=== PATIENT | female | born 2000 | race Caucasian/White ===

== ENCOUNTER 2022-01-21 15:03 | Emergency (ER) | payer OTHER ==
--- NOTE | 2022-01-21 16:29 | ED Physician Documentation ---
PD HPI URI - Stated complaint Stated Complaint: FEVER/NAUSEA - Chief complaint Chief Complaint: General - History obtained from History obtained from: Patient - History of Present Illness Timing - onset: How many days ago (4-5) Timing duration: Days (4-5) Timing details: Abrupt onset, Still present Associated symptoms: Fever, Chills, Nasal congestion, Dry cough. No: NVD Contributing factors: Sick contact. No: Immunocompromised Worsened by: Activity Similar symptoms before: Has not had sx before Recently seen: Not recently seen Review of Systems Constitutional: reports: Fever, Chills Nose: reports: Rhinorrhea / runny nose, Congestion Throat: reports: Sore throat Respiratory: reports: Cough GI: reports: Nausea. denies: Vomiting, Diarrhea Skin: denies: Rash Neurologic: reports: Generalized weakness, Headache. denies: Altered mental status PD PAST MEDICAL HISTORY - Past Medical History Cardiovascular: None Respiratory: None Endocrine/Autoimmune: None - Present Medications Home Medications: Ambulatory Orders Medication Instructions Recorded Confirmed Benzonatate [Tessalon] 100 mg PO TID PRN #20 cap 01/21/22 Lisinopril [Zestril] 20 mg PO DAILY 01/21/22 01/21/22 Ondansetron Odt [Zofran] 4 mg TL Q6H PRN #10 tablet 01/21/22 - Allergies Allergies/Adverse Reactions: Allergies Allergy/AdvReac Type Severity Reaction Status Date / Time No Known Drug Allergies Allergy Verified 01/21/22 15:21 PD ED PE NORMAL - Vitals Vital signs reviewed: Yes - General General: Alert and oriented X 3, No acute distress, Well developed/nourished - HEENT HEENT: Pharynx benign - Neck Neck: Supple, no meningeal sign, No adenopathy - Cardiac Cardiac: RRR, No murmur - Respiratory Respiratory: Clear bilaterally - Abdomen Abdomen: Soft, Non tender - Derm Derm: Normal color, Warm and dry, No rash - Neuro Neuro: Alert and oriented X 3, No motor deficit, Normal speech Results - Vitals Vitals: Oxygen O2 Source Room air PD MEDICAL DECISION MAKING - ED course Complexity details: considered differential (COVID close exposure ( sick with positive home rapid ag test).), d/w patient Departure - Departure Disposition: 01 Home, Self Care Clinical Impression: COVID-19, Upper respiratory infection Condition: Stable Record reviewed to determine appropriate education?: Yes Instructions: ED Viral Syndrome Follow-Up: SNE[facility] Burns [Provider Group] Prescriptions: Benzonatate [Tessalon] 100 mg PO TID PRN #20 cap PRN Reason: Cough Ondansetron Odt [Zofran] 4 mg TL Q6H PRN #10 tablet PRN Reason: Nausea / Vomiting Comments: Stay well-hydrated and use Tylenol every 4-6 hours if needed for pain or fevers. Use ondansetron if needed for nausea. Benzonatate/Tessalon if needed for cough. Off work for 5 days due to acute COVID infection. I would anticipate improvement over the next several days and return if worsening. Paxlovid as instructed per the package and directions twice daily for 5 days. I transmitted prescriptions to [facility] pharmacy. Forms: Activity restrictions Discharge Date/Time: 01/21/22 18:03
[2022-01-21] MEDS ORDERED: ONDANSETRON ODT 4 MG TABLET TL STA (17:09)
[2022-01-21] MEDS ORDERED: BENZONATATE 100 MG CAPSULE PO STA (17:09)
[2022-01-21] MEDS ORDERED: NIRMATRELVIR/RITONAVIR PREPACK PO STA (17:09)
[2022-01-21 18:05] VITALS: BP 124/82
== END 2022-01-21 18:03 | disposition home or self-care (01) ==
LOC: ED 15:03
DX: U07.1 COVID-19 (principal)
CPT/HCPCS: 99282; 99283; A9270; J3490; Q0162

== ENCOUNTER 2022-09-04 09:29 | Emergency (ER) | payer OTHER ==
[2022-09-04 09:37] VITALS: BP 134/80
--- OUTSIDE RECORDS SUMMARY | 2022-09-04 09:57 | EXTERNAL MEDICAL SUMMARY RPT | Continuity of Care Document ---
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 2022-06-16 13:06 Encounter for superv ision of other normal , [facility] 2022-06-16 13:14 Polycystic kidney, [facility] 2022-06-16 13:14 Encounter for superv ision of normal first , [facility] 2022-06-16 13:14 Encounter for superv ision of other normal , [facility] 2022-08-11 11:42 Other specified noninflammatory disorders of vagina [facility] 2022-08-12 00:45 Other specified noninflammatory disorders of vagina [facility] Results/Labs test date author facility value unit interpretation Result panel 1 (unknown) (no date) (unknown) [facility] (no value) (units unknown) (unknown) Result panel 2 (unknown) (no date) (unknown) [facility] (no value) (units unknown) (unknown) Result panel 3 (unknown) (no date) (unknown) [facility] (no value) (units unknown) (unknown) Result panel 4 (unknown) (no date) (unknown) [facility] (no value) (units unknown) (unknown) Result panel 5 (unknown) (no date) (unknown) [facility] (no value) (units unknown) (unknown) Result panel 6 (unknown) (no date) (unknown) [facility] (no value) (units unknown) (unknown) Result panel 7 (unknown) (no date) (unknown) [facility] (no value) (units unknown) (unknown) Result panel 8 (unknown) (no date) (unknown) [facility] (no value) (units unknown) (unknown) Result panel 9 (unknown) (no date) (unknown) [facility] (no value) (units unknown) (unknown) Result panel 10 (unknown) (no date) (unknown) [facility] (no value) (units unknown) (unknown) Result panel 11 (unknown) (no date) (unknown) [facility] (no value) (units unknown) (unknown) Result panel 12 (unknown) (no date) (unknown) [facility] (no value) (units unknown) (unknown) Result panel 13 (unknown) (no date) (unknown) [facility] (no value) (units unknown) (unknown) Result panel 14 (unknown) (no date) (unknown) [facility] (no value) (units unknown) (unknown) Result panel 15 (unknown) (no date) (unknown) [facility] (no value) (units unknown) (unknown) Result panel 16 (unknown) (no date) (unknown) [facility] (no value) (units unknown) (unknown) Result panel 17 (unknown) (no date) (unknown) [facility] (no value) (units unknown) (unknown) Result panel 18 (unknown) (no date) (unknown) [facility] (no value) (units unknown) (unknown) Result panel 19 (unknown) (no date) (unknown) [facility] (no value) (units unknown) (unknown) Result panel 20 (unknown) (no date) (unknown) [facility] (no value) (units unknown) (unknown) Result panel 21 (unknown) (no date) (unknown) [facility] (no value) (units unknown) (unknown) Result panel 22 (unknown) (no date) (unknown) [facility] (no value) (units unknown) (unknown) Result panel 23 (unknown) (no date) (unknown) [facility] (no value) (units unknown) (unknown) Result panel 24 (unknown) (no date) (unknown) [facility] (no value) (units unknown) (unknown) Result panel 25 (unknown) (no date) (unknown) [facility] (no value) (units unknown) (unknown) Result panel 26 (unknown) (no date) (unknown) [facility] (no value) (units unknown) (unknown) Result panel 27 (unknown) (no date) (unknown) [facility] (no value) (units unknown) (unknown) Result panel 28 (unknown) (no date) (unknown) [facility] (no value) (units unknown) (unknown) Result panel 29 (unknown) (no date) (unknown) [facility] (no value) (units unknown) (unknown) Result panel 30 (unknown) (no date) (unknown) [facility] (no value) (units unknown) (unknown) Result panel 31 (unknown) (no date) (unknown) [facility] (no value) (units unknown) (unknown) Result panel 32 (unknown) (no date) (unknown) [facility] (no value) (units unknown) (unknown) Result panel 33 (unknown) (no date) (unknown) [facility] (no value) (units unknown) (unknown) Result panel 34 (unknown) (no date) (unknown) [facility] (no value) (units unknown) (unknown) Result panel 35 (unknown) (no date) (unknown) [facility] (no value) (units unknown) (unknown) Result panel 36 (unknown) (no date) (unknown) [facility] (no value) (units unknown) (unknown) Result panel 37 (unknown) (no date) (unknown) [facility] (no value) (units unknown) (unknown) Result panel 38 (unknown) (no date) (unknown) [facility] (no value) (units unknown) (unknown) Result panel 39 (unknown) (no date) (unknown) [facility] (no value) (units unknown) (unknown) Result panel 40 (unknown) (no date) (unknown) [facility] (no value) (units unknown) (unknown) Result panel 41 (unknown) (no date) (unknown) [facility] (no value) (units unknown) (unknown) Result panel 42 (unknown) (no date) (unknown) [facility] (no value) (units unknown) (unknown) Result panel 43 (unknown) (no date) (unknown) [facility] (no value) (units unknown) (unknown) Result panel 44 (unknown) (no date) (unknown) [facility] (no value) (units unknown) (unknown) Result panel 45 (unknown) (no date) (unknown) [facility] (no value) (units unknown) (unknown) Result panel 46 (unknown) (no date) (unknown) [facility] (no value) (units unknown) (unknown) Result panel 47 (unknown) (no date) (unknown) [facility] (no value) (units unknown) (unknown) Result panel 48 (unknown) (no date) (unknown) [facility] (no value) (units unknown) (unknown) Result panel 49 (unknown) (no date) (unknown) [facility] (no value) (units unknown) (unknown) Result panel 50 (unknown) (no date) (unknown) [facility] (no value) (units unknown) (unknown) Result panel 51 (unknown) (no date) (unknown) [facility] (no value) (units unknown) (unknown) Result panel 52 (unknown) (no date) (unknown) [facility] (no value) (units unknown) (unknown) Result panel 53 (unknown) (no date) (unknown) [facility] (no value) (units unknown) (unknown) Result panel 54 (unknown) (no date) (unknown) [facility] (no value) (units unknown) (unknown) Result panel 55 (unknown) (no date) (unknown) [facility] (no value) (units unknown) (unknown) Result panel 56 (unknown) (no date) (unknown) [facility] (no value) (units unknown) (unknown) Result panel 57 (unknown) (no date) (unknown) [facility] (no value) (units unknown) (unknown) Result panel 58 (unknown) (no date) (unknown) [facility] (no value) (units unknown) (unknown) Result panel 59 (unknown) (no date) (unknown) [facility] (no value) (units unknown) (unknown) Result panel 60 (unknown) (no date) (unknown) [facility] (no value) (units unknown) (unknown) Result panel 61 (unknown) (no date) (unknown) [facility] (no value) (units unknown) (unknown) Result panel 62 (unknown) (no date) (unknown) [facility] (no value) (units unknown) (unknown) Result panel 63 (unknown) (no date) (unknown) (unknown) (no value) (units unknown) (unknown) (unknown) (no date) (unknown) (unknown) (1) Encounter for supervision of normal first , first trimester: (units unknown) (unknown) (unknown) (no date) (unknown) (unknown) (2) 11 weeks gestation of : (units unknown) (unknown) (unknown) (no date) (unknown) (unknown) Genetic Screening/Teratolog y Counseling - Includes patient, baby's father, or (units unknown) (unknown) (unknown) (no date) (unknown) (unknown) -?-?-?-?-?-?-? -?-?- ?-?-? (units unknown) (unknown) (unknown) (no date) (unknown) (unknown) 04/28/22 (units unknown) (unknown) (unknown) (no date) (unknown) (unknown) 06/16/22 (units unknown) (unknown) (unknown) (no date) (unknown) (unknown) [id number] (units unknown) (unknown) (unknown) (no date) (unknown) (unknown) 12/29/22 Ultra sound #1 12w 0d (units unknown) (unknown) (unknown) (no date) (unknown) (unknown) 11w 5d (units unknown) (unknown) (unknown) (no date) (unknown) (unknown) Abnormal lab v alues 1st trimester: discussed (units unknown) (unknown) (unknown) (no date) (unknown) (unknown) Acne (units unknown) (unknown) (unknown) (no date) (unknown) (unknown) 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[employer], 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 (units unknown) (unknown) (unknown) (no date) (unknown) (unknown) Age/Sex: 21 / F Date of Service: (units unknown) (unknown) (unknown) (no date) (unknown) (unknown) Allergies (units unknown) (unknown) (unknown) (no date) (unknown) (unknown) [facility] (units unknown) (unknown) (unknown) (no date) (unknown) (unknown) [place] [address] (units unknown) (unknown) (unknown) (no date) (unknown) (unknown) Aneuploidy Screening Offered: Declined (unsure, wants to discuss w/ ) (units unknown) (unknown) (unknown) (no date) (unknown) (unknown) Anticipated co urse of care: discussed (units unknown) (unknown) (unknown) (no date) (unknown) (unknown) Anxiety (units unknown) (unknown) (unknown) (no date) (unknown) (unknown) Arthritis (units unknown) (unknown) (unknown) (no date) (unknown) (unknown) Assessment and Plan (units unknown) (unknown) (unknown) (no date) (unknown) (unknown) Attending Dr: Faith Flanagan MD (units unknown) (unknown) (unknown) (no date) (unknown) (unknown) Plan/Preferences (units unknown) (unknown) (unknown) (no date) (unknown) (unknown) Planning (unit s unknown) (unknown) (unknown) (no date) (unknown) (unknown) Blood transfusions?: yes (Never had but would accept) (units unknown) (unknown) (unknown) (no date) (unknown) (unknown) Caffeine use, Exercise and activity, work/environmental/ hazards, Sexual (units unknown) (unknown) (unknown) (no date) (unknown) (unknown) Childbirth Cla sses: discussed (units unknown) (unknown) (unknown) (no date) (unknown) (unknown) Current Estima te 12/31/22 Manual 11w 5d Final MOMO (units unknown) (unknown) (unknown) (no date) (unknown) (unknown) Current Pregna ncy History (units unknown) (unknown) (unknown) (no date) (unknown) (unknown) DNA (units unknown) (unknown) (unknown) (no date) (unknown) (unknown) : 1 Acct:[id number] (units unknown) (unknown) (unknown) (no date) (unknown) (unknown) Date of positi ve home test: 04/19/22 (units unknown) (unknown) (unknown) (no date) (unknown) (unknown) Date (units unknown) (unknown) (unknown) (no date) (unknown) (unknown) Denies over th e counter medications, Denies alcohol, Denies illicit drugs and (units unknown) (unknown) (unknown) (no date) (unknown) (unknown) Depression: discussed (units unknown) (unknown) (unknown) (no date) (unknown) (unknown) Dept at . (units unknown) (unknown) (unknown) (no date) (unknown) (unknown) Diet and Exercise (u nits unknown) (unknown) (unknown) (no date) (unknown) (unknown) Documented By: Faith Flanagan MD 06/16/22 0920 (units unknown) (unknown) (unknown) (no date) (unknown) (unknown) Draft (units unknown) (unknown) (unknown) (no date) (unknown) (unknown) MOMO Calculator (unit s unknown) (unknown) (unknown) (no date) (unknown) (unknown) EGA Weight BP UGlucose (units unknown) (unknown) (unknown) (no date) (unknown) (unknown) Estimated Deli very Date Method Current (units unknown) (unknown) (unknown) (no date) (unknown) (unknown) Family History (Updated 05/05/22 @ 15:59 by Rebecca Polk RN) (units unknown) (unknown) (unknown) (no date) (unknown) (unknown) Family/Other Marfans syndrome (units unknown) (unknown) (unknown) (no date) (unknown) (unknown) Family/Other Marfans syndrome (units unknown) (unknown) (unknown) (no date) (unknown) (unknown) Family/Other Polycystic kidney disease (units unknown) (unknown) (unknown) (no date) (unknown) (unknown) Father of Baby : same (units unknown) (unknown) (unknown) (no date) (unknown) (unknown) First Trimeste r Education Checklist (units unknown) (unknown) (unknown) (no date) (unknown) (unknown) Genetic Screen ing + Counseling (units unknown) (unknown) (unknown) (no date) (unknown) (unknown) Genetic Screening (u nits unknown) (unknown) (unknown) (no date) (unknown) (unknown) Genetic polycy stic kidney disease; family Hx Marfan Syndrome (pt has no known (units unknown) (unknown) (unknown) (no date) (unknown) (unknown) Grandfather Marfans syndrome (units unknown) (unknown) (unknown) (no date) (unknown) (unknown) Grandfather Me ntal health problem (units unknown) (unknown) (unknown) (no date) (unknown) (unknown) Grandmother Lymphoma (units unknown) (unknown) (unknown) (no date) (unknown) (unknown) 1 Mult iple births 0 (units unknown) (unknown) (unknown) (no date) (unknown) (unknown) HIV risk evaluation: low risk (units unknown) (unknown) (unknown) (no date) (unknown) (unknown) Health Center Education (units unknown) (unknown) (unknown) (no date) (unknown) (unknown) Health center information: nature of practice discussed, personnel (units unknown) (unknown) (unknown) (no date) (unknown) (unknown) Hepatitis C ri sk evaluation: low risk (units unknown) (unknown) (unknown) (no date) (unknown) (unknown) History of Hepatitis B: No (units unknown) (unknown) (unknown) (no date) (unknown) (unknown) History of Hepatitis C: No (units unknown) (unknown) (unknown) (no date) (unknown) (unknown) History of rem oval of skin mole (units unknown) (unknown) (unknown) (no date) (unknown) (unknown) Hospital: (units unknown) (unknown) (unknown) (no date) (unknown) (unknown) 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) (units unknown) (unknown) (unknown) (no date) (unknown) (unknown) Hx # Pregnancies 0 Elective abortions 0 (units unknown) (unknown) (unknown) (no date) (unknown) (unknown) Hx # Term Pregnancies 0 Ectopic pregnancies 0 (units unknown) (unknown) (unknown) (no date) (unknown) (unknown) Infant will be adopted?: no (units unknown) (unknown) (unknown) (no date) (unknown) (unknown) Infection History (u nits unknown) (unknown) (unknown) (no date) (unknown) (unknown) Infectious Dis ease Education (units unknown) (unknown) (unknown) (no date) (unknown) (unknown) Infectious dis ease exposure: chicken pox immunity discussed, hepatitis risk (units unknown) (unknown) (unknown) (no date) (unknown) (unknown) Initial Weight : 210 lb (units unknown) (unknown) (unknown) (no date) (unknown) (unknown) Initials (units unknown) (unknown) (unknown) (no date) (unknown) (unknown) Intake (units unknown) (unknown) (unknown) (no date) (unknown) (unknown) ROSALIE (units unknown) (unknown) (unknown) (no date) (unknown) (unknown) LGSIL on Pap s mear of cervix (units unknown) (unknown) (unknown) (no date) (unknown) (unknown) Live with some one with TB or exposed to TB: No (units unknown) (unknown) (unknown) (no date) (unknown) (unknown) Loc: [facility] (units unknown) (unknown) (unknown) (no date) (unknown) (unknown) Marital status : (units unknown) (unknown) (unknown) (no date) (unknown) (unknown) Medical Histor y (Updated 05/05/22 @ 15:35 by Rebecca Polk RN) (units unknown) (unknown) (unknown) (no date) (unknown) (unknown) Mother Polycys tic kidney disease (units unknown) (unknown) (unknown) (no date) (unknown) (unknown) No Known Drug Allergies Allergy (Unverified 05/05/22 15:32) (units unknown) (unknown) (unknown) (no date) (unknown) (unknown) No no absent 4wks (u nits unknown) (unknown) (unknown) (no date) (unknown) (unknown) Number of Maylin ng Children 0 (units unknown) (unknown) (unknown) (no date) (unknown) (unknown) Nutrition and weight gain counseling: special diet: discussed (units unknown) (unknown) (unknown) (no date) (unknown) (unknown) OB Office Visit (uni ts unknown) (unknown) (unknown) (no date) (unknown) (unknown) OB Visit Log (units unknown) (unknown) (unknown) (no date) (unknown) (unknown) On contr ol at conception?: No (units unknown) (unknown) (unknown) (no date) (unknown) (unknown) Other Estimate s 12/31/22 LMP (Certain) 11w 5d (units unknown) (unknown) (unknown) (no date) (unknown) (unknown) PFSH (units unknown) (unknown) (unknown) (no date) (unknown) (unknown) Pap LSIL 01/23 22, but no reflex HPV was run, no f/u done. 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 treated and cured) (units unknown) (unknown) (unknown) (no date) (unknown) (unknown) Partner histor y of genital herpes: Yes (units unknown) (unknown) (unknown) (no date) (unknown) (unknown) Partner: Willian Lopez (units unknown) (unknown) (unknown) (no date) (unknown) (unknown) Patient's age 35 years or older as of estimated date of delivery: No (units unknown) (unknown) (unknown) (no date) (unknown) (unknown) Patient: Colleen Lopez MR#: [id number] (units unknown) (unknown) (unknown) (no date) (unknown) (unknown) Client Reporting Associate: [facility] vs [facility] (units unknown) (unknown) (unknown) (no date) (unknown) (unknown) Personal histo ry of STD: HPV (? no HPV actually run from pap) (units unknown) (unknown) (unknown) (no date) (unknown) (unknown) Personal histo ry of genital herpes: No (units unknown) (unknown) (unknown) (no date) (unknown) (unknown) Polycystic kid shannan disease (units unknown) (unknown) (unknown) (no date) (unknown) (unknown) History (u nits unknown) (unknown) (unknown) (no date) (unknown) (unknown) Education ( units unknown) (unknown) (unknown) (no date) (unknown) (unknown) Initi al Assessment (units unknown) (unknown) (unknown) (no date) (unknown) (unknown) Speci fic Issues/Plans (units unknown) (unknown) (unknown) (no date) (unknown) (unknown) Testi ng: discussed (units unknown) (unknown) (unknown) (no date) (unknown) (unknown) Visit (unit s unknown) (unknown) (unknown) (no date) (unknown) (unknown) educa tion packet: Child education/plan, symptoms, (units unknown) (unknown) (unknown) (no date) (unknown) (unknown) Primary Care Provider: KELLEN (units unknown) (unknown) (unknown) (no date) (unknown) (unknown) Primary Ob Provider: Faith Flanagan (units unknown) (unknown) (unknown) (no date) (unknown) (unknown) Prior GBS-Infe cted child: No (units unknown) (unknown) (unknown) (no date) (unknown) (unknown) Providers (units unknown) (unknown) (unknown) (no date) (unknown) (unknown) Rash or viral illness since last menstrual period: Yes (URI vs allergies (Covid (units unknown) (unknown) (unknown) (no date) (unknown) (unknown) Reason For Visit (un its unknown) (unknown) (unknown) (no date) (unknown) (unknown) Recent travel outside of country?: Yes ([place] only) (units unknown) (unknown) (unknown) (no date) (unknown) (unknown) Recurrent preg haven loss or a stillbirth: No (units unknown) (unknown) (unknown) (no date) (unknown) (unknown) 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), (units unknown) (unknown) (unknown) (no date) (unknown) (unknown) 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) and Reports Other (units unknown) (unknown) (unknown) (no date) (unknown) (unknown) 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) (units unknown) (unknown) (unknown) (no date) (unknown) (unknown) Safety (units unknown) (unknown) (unknown) (no date) (unknown) (unknown) Seasonal allergies ( units unknown) (unknown) (unknown) (no date) (unknown) (unknown) Signed By: (units unknown) (unknown) (unknown) (no date) (unknown) (unknown) Sister Depression (u nits unknown) (unknown) (unknown) (no date) (unknown) (unknown) Smoking Status : Former smoker (quit vaping 11/2021) (units unknown) (unknown) (unknown) (no date) (unknown) (unknown) Smoking/Tobacc o use: discussed (units unknown) (unknown) (unknown) (no date) (unknown) (unknown) Social History (unit s unknown) (unknown) (unknown) (no date) (unknown) (unknown) Status: Acute (units unknown) (unknown) (unknown) (no date) (unknown) (unknown) Support Person (s):: Willian (units unknown) (unknown) (unknown) (no date) (unknown) (unknown) Surgical Histo ry (Updated 05/05/22 @ 15:35 by Rebecca Polk RN) (units unknown) (unknown) (unknown) (no date) (unknown) (unknown) Surrogate ?: no (units unknown) (unknown) (unknown) (no date) (unknown) (unknown) Symptoms since LMP: Reports amenorrhea, nausea, fatigue, breast tenderness, (units unknown) (unknown) (unknown) (no date) (unknown) (unknown) Teratogen Expo sures since LMP/Conception: Denies prescription medications, (units unknown) (unknown) (unknown) (no date) (unknown) (unknown) Testing Education (u nits unknown) (unknown) (unknown) (no date) (unknown) (unknown) Testing educat ion completed: group B strep, Spina bifida testing and Cell Free (units unknown) (unknown) (unknown) (no date) (unknown) (unknown) This note may have been all or partially generated using voice recognition (units unknown) (unknown) (unknown) (no date) (unknown) (unknown) Tobacco + Subs tance Use (units unknown) (unknown) (unknown) (no date) (unknown) (unknown) Tobacco Status (unit s unknown) (unknown) (unknown) (no date) (unknown) (unknown) Travel, Seatbe lt use and Influenza vaccine (already had flu shot, Covid x2) (units unknown) (unknown) (unknown) (no date) (unknown) (unknown) Type(s) of exercise: walking (units unknown) (unknown) (unknown) (no date) (unknown) (unknown) UProtein Movem ent PreLabor FHR Fndl Ht Pres Edema Cerv Exam US/Comment Next Appt (units unknown) (unknown) (unknown) (no date) (unknown) (unknown) Varicella/chic rodrigue pox status: immunized (units unknown) (unknown) (unknown) (no date) (unknown) (unknown) 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 , 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 (units unknown) (unknown) (unknown) (no date) (unknown) (unknown) Vitamins and i julio c, Diet and weight gain, Fish and mercury intake, Smoking, (units unknown) (unknown) (unknown) (no date) (unknown) (unknown) WG (units unknown) (unknown) (unknown) (no date) (unknown) (unknown) [place] teeth extracted () (units unknown) (unknown) (unknown) (no date) (unknown) (unknown) Zika virus exposure: No (units unknown) (unknown) (unknown) (no date) (unknown) (unknown) activity, X-ra y exposure, Medication use, Sauna/hot tub use, Dental care, (units unknown) (unknown) (unknown) (no date) (unknown) (unknown) alcohol intake : former (5-7 glasses of wine/week when not ) (units unknown) (unknown) (unknown) (no date) (unknown) (unknown) anyone in 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 ) (units unknown) (unknown) (unknown) (no date) (unknown) (unknown) current occupational exposures/hazards: Yes (exposure in the building, but no (units unknown) (unknown) (unknown) (no date) (unknown) (unknown) daily servings fruits/ve-4 (units unknown) (unknown) (unknown) (no date) (unknown) (unknown) described, vis it schedule reviewed, ultrasounds policy reviewed, coverage 24 (units unknown) (unknown) (unknown) (no date) (unknown) (unknown) discussed, tuberculosis exposure discussed, CMV discussed, Toxoplasmosis (units unknown) (unknown) (unknown) (no date) (unknown) (unknown) do you feel sa fe at home: Yes (units unknown) (unknown) (unknown) (no date) (unknown) (unknown) duration: 30-4 5 minutes/day (units unknown) (unknown) (unknown) (no date) (unknown) (unknown) during the pas t year weight has: increased > 10 lbs (units unknown) (unknown) (unknown) (no date) (unknown) (unknown) education levsuleiman l: college (some college) (units unknown) (unknown) (unknown) (no date) (unknown) (unknown) fire extinguis her in home: Yes (units unknown) (unknown) (unknown) (no date) (unknown) (unknown) firearms in ho me: Yes (some locked up, not all) (units unknown) (unknown) (unknown) (no date) (unknown) (unknown) frequency: 3-4 times per week (units unknown) (unknown) (unknown) (no date) (unknown) (unknown) have occurred. If there are any questions, please contact the Medical Records (units unknown) (unknown) (unknown) (no date) (unknown) (unknown) helmet use: Yes (uni ts unknown) (unknown) (unknown) (no date) (unknown) (unknown) hours a day an d participation of father in care and office visits (units unknown) (unknown) (unknown) (no date) (unknown) (unknown) household memb ers: spouse and friend(s) (units unknown) (unknown) (unknown) (no date) (unknown) (unknown) housing: house (unit s unknown) (unknown) (unknown) (no date) (unknown) (unknown) inherited gene tic or chromosomal disorder (polycystic kidneys, Marfan's) (units unknown) (unknown) (unknown) (no date) (unknown) (unknown) irritability a nd other (constipation) (units unknown) (unknown) (unknown) (no date) (unknown) (unknown) lives independently: Yes (units unknown) (unknown) (unknown) (no date) (unknown) (unknown) marital status : (units unknown) (unknown) (unknown) (no date) (unknown) (unknown) may occur. 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 Please (units unknown) (unknown) (unknown) (no date) (unknown) (unknown) pets and anima ls: Yes (units unknown) (unknown) (unknown) (no date) (unknown) (unknown) precautions, Listeriosis prevention and Rubella Immunization (units unknown) (unknown) (unknown) (no date) (unknown) (unknown) read the note carefully and recognize, using context, where these substitutions (units unknown) (unknown) (unknown) (no date) (unknown) (unknown) seatbelt use: always (units unknown) (unknown) (unknown) (no date) (unknown) (unknown) second hand exposure: Yes (roommate vapes) (units unknown) (unknown) (unknown) (no date) (unknown) (unknown) software. Alth ough every effort is made to edit content, coordinate measuring machine operator errors (units unknown) (unknown) (unknown) (no date) (unknown) (unknown) special jeri needs: No (units unknown) (unknown) (unknown) (no date) (unknown) (unknown) substance use type: does not use (units unknown) (unknown) (unknown) (no date) (unknown) (unknown) travel history : recent (domestic, [place]) (units unknown) (unknown) (unknown) (no date) (unknown) (unknown) water heater t emp set < 120 deg: Yes (units unknown) (unknown) (unknown) (no date) (unknown) (unknown) well-balanced diet: about half the time (units unknown) (unknown) (unknown) (no date) (unknown) (unknown) working smoke detector in home: Yes (units unknown) (unknown) Result panel 64 (unknown) (no date) (unknown) (unknown) (no value) (units unknown) (unknown) (unknown) (no date) (unknown) (unknown) (+8 lb 8 oz) 110/66 (units unknown) (unknown) (unknown) (no date) (unknown) (unknown) (1) Encounter for supervision of normal first , first trimester: (units unknown) (unknown) (unknown) (no date) (unknown) (unknown) (2) 11 weeks gestation of : (units unknown) (unknown) (unknown) (no date) (unknown) (unknown) Genetic Screening/Teratolog y Counseling - Includes patient, baby's father, or (units unknown) (unknown) (unknown) (no date) (unknown) (unknown) -?-?-?-?-?-?-? -?-?- ?-?-? (units unknown) (unknown) (unknown) (no date) (unknown) (unknown) 06/16/22 (units unknown) (unknown) (unknown) (no date) (unknown) (unknown) 06/16/22] (units unknown) (unknown) (unknown) (no date) (unknown) (unknown) [id number] (units unknown) (unknown) (unknown) (no date) (unknown) (unknown) 12/29/22 Ultra sound #1 12w 0d (units unknown) (unknown) (unknown) (no date) (unknown) (unknown) 11w 5d 218 lb 8 oz ( units unknown) (unknown) (unknown) (no date) (unknown) (unknown) 12:18 (units unknown) (unknown) (unknown) (no date) (unknown) (unknown) Abnormal lab v alues 1st trimester: discussed (units unknown) (unknown) (unknown) (no date) (unknown) (unknown) Accompanied by : (units unknown) (unknown) (unknown) (no date) (unknown) (unknown) Acne (units unknown) (unknown) (unknown) (no date) (unknown) (unknown) 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[employer], 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 (units unknown) (unknown) (unknown) (no date) (unknown) (unknown) Add'l Plan Details ( units unknown) (unknown) (unknown) (no date) (unknown) (unknown) Age/Sex: 21 / F Date of Service: (units unknown) (unknown) (unknown) (no date) (unknown) (unknown) Allergies (units unknown) (unknown) (unknown) (no date) (unknown) (unknown) Chandni Dooley ly Medicine (units unknown) (unknown) (unknown) (no date) (unknown) (unknown) FARIHA Tariq [id number] (units unknown) (unknown) (unknown) (no date) (unknown) (unknown) Aneuploidy Screening Offered: Declined (unsure, wants to discuss w/ ) (units unknown) (unknown) (unknown) (no date) (unknown) (unknown) Anticipated co urse of care: discussed (units unknown) (unknown) (unknown) (no date) (unknown) (unknown) Anxiety (units unknown) (unknown) (unknown) (no date) (unknown) (unknown) Arthritis (units unknown) (unknown) (unknown) (no date) (unknown) (unknown) Assessment and Plan (units unknown) (unknown) (unknown) (no date) (unknown) (unknown) Attending Dr: Faith Flanagan MD (units unknown) (unknown) (unknown) (no date) (unknown) (unknown) BMI 34.2 (units unknown) (unknown) (unknown) (no date) (unknown) (unknown) BP 110/66 (units unknown) (unknown) (unknown) (no date) (unknown) (unknown) Plan/Preferences (units unknown) (unknown) (unknown) (no date) (unknown) (unknown) Planning (unit s unknown) (unknown) (unknown) (no date) (unknown) (unknown) Blood Pressure Location Lt brachial (units unknown) (unknown) (unknown) (no date) (unknown) (unknown) Blood transfusions?: yes (Never had but would accept) (units unknown) (unknown) (unknown) (no date) (unknown) (unknown) Caffeine use, Exercise and activity, work/environmental/ hazards, Sexual a (units unknown) (unknown) (unknown) (no date) (unknown) (unknown) Childbirth Cla sses: discussed (units unknown) (unknown) (unknown) (no date) (unknown) (unknown) Current Estima te 12/31/22 Manual 11w 5d Final MOMO (units unknown) (unknown) (unknown) (no date) (unknown) (unknown) Current Pregna ncy History (units unknown) (unknown) (unknown) (no date) (unknown) (unknown) DNA (units unknown) (unknown) (unknown) (no date) (unknown) (unknown) : 1 Acct:[id number] (units unknown) (unknown) (unknown) (no date) (unknown) (unknown) Date of positi ve home test: 04/19/22 (units unknown) (unknown) (unknown) (no date) (unknown) (unknown) Date (units unknown) (unknown) (unknown) (no date) (unknown) (unknown) Denies over th e counter medications, Denies alcohol, Denies illicit drugs and (units unknown) (unknown) (unknown) (no date) (unknown) (unknown) Depression: discussed (units unknown) (unknown) (unknown) (no date) (unknown) (unknown) Dept at . (units unknown) (unknown) (unknown) (no date) (unknown) (unknown) Diet and Exercise (u nits unknown) (unknown) (unknown) (no date) (unknown) (unknown) Documented By: Faith Flanagan MD 06/16/22 0920 (units unknown) (unknown) (unknown) (no date) (unknown) (unknown) Draft (units unknown) (unknown) (unknown) (no date) (unknown) (unknown) MOMO Calculator (unit s unknown) (unknown) (unknown) (no date) (unknown) (unknown) EGA Weight BP UGlucose (units unknown) (unknown) (unknown) (no date) (unknown) (unknown) Estimated Deli very Date Method Current (units unknown) (unknown) (unknown) (no date) (unknown) (unknown) Family History (Updated 05/05/22 @ 15:59 by Reebcca Polk RN) (units unknown) (unknown) (unknown) (no date) (unknown) (unknown) Family/Other Marfans syndrome (units unknown) (unknown) (unknown) (no date) (unknown) (unknown) Family/Other Marfans syndrome (units unknown) (unknown) (unknown) (no date) (unknown) (unknown) Family/Other Polycystic kidney disease (units unknown) (unknown) (unknown) (no date) (unknown) (unknown) Father of Baby : same (units unknown) (unknown) (unknown) (no date) (unknown) (unknown) First Trimeste r Education Checklist (units unknown) (unknown) (unknown) (no date) (unknown) (unknown) Genetic Screen ing + Counseling (units unknown) (unknown) (unknown) (no date) (unknown) (unknown) Genetic Screening (u nits unknown) (unknown) (unknown) (no date) (unknown) (unknown) Genetic polycy stic kidney disease; family Hx Marfan Syndrome (pt has no known (units unknown) (unknown) (unknown) (no date) (unknown) (unknown) Grandfather Marfans syndrome (units unknown) (unknown) (unknown) (no date) (unknown) (unknown) Grandfather Me ntal health problem (units unknown) (unknown) (unknown) (no date) (unknown) (unknown) Grandmother Lymphoma (units unknown) (unknown) (unknown) (no date) (unknown) (unknown) 1 Mult iple births 0 (units unknown) (unknown) (unknown) (no date) (unknown) (unknown) HIV risk evaluation: low risk (units unknown) (unknown) (unknown) (no date) (unknown) (unknown) Health Center Education (units unknown) (unknown) (unknown) (no date) (unknown) (unknown) Health center information: nature of practice discussed, personnel (units unknown) (unknown) (unknown) (no date) (unknown) (unknown) Height 5 ft 7 in (un its unknown) (unknown) (unknown) (no date) (unknown) (unknown) Hepatitis C ri sk evaluation: low risk (units unknown) (unknown) (unknown) (no date) (unknown) (unknown) History of Hepatitis B: No (units unknown) (unknown) (unknown) (no date) (unknown) (unknown) History of Hepatitis C: No (units unknown) (unknown) (unknown) (no date) (unknown) (unknown) History of rem oval of skin mole (units unknown) (unknown) (unknown) (no date) (unknown) (unknown) Hospital: [facility] (units unknown) (unknown) (unknown) (no date) (unknown) (unknown) 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) (units unknown) (unknown) (unknown) (no date) (unknown) (unknown) Hx # Pregnancies 0 Elective abortions 0 (units unknown) (unknown) (unknown) (no date) (unknown) (unknown) Hx # Term Pregnancies 0 Ectopic pregnancies 0 (units unknown) (unknown) (unknown) (no date) (unknown) (unknown) Infant will be adopted?: no (units unknown) (unknown) (unknown) (no date) (unknown) (unknown) Infection History (u nits unknown) (unknown) (unknown) (no date) (unknown) (unknown) Infectious Dis ease Education (units unknown) (unknown) (unknown) (no date) (unknown) (unknown) Infectious dis ease exposure: chicken pox immunity discussed, hepatitis risk (units unknown) (unknown) (unknown) (no date) (unknown) (unknown) Initial Weight : 210 lb (units unknown) (unknown) (unknown) (no date) (unknown) (unknown) Initials (units unknown) (unknown) (unknown) (no date) (unknown) (unknown) Intake Clinica l Staff (units unknown) (unknown) (unknown) (no date) (unknown) (unknown) Intake perform ed by: Shaniqua Landry (units unknown) (unknown) (unknown) (no date) (unknown) (unknown) Intake (units unknown) (unknown) (unknown) (no date) (unknown) (unknown) ROSALIE (units unknown) (unknown) (unknown) (no date) (unknown) (unknown) LGSIL on Pap s mear of cervix (units unknown) (unknown) (unknown) (no date) (unknown) (unknown) Live with some one with TB or exposed to TB: No (units unknown) (unknown) (unknown) (no date) (unknown) (unknown) Loc: [facility] (units unknown) (unknown) (unknown) (no date) (unknown) (unknown) Marital status : (units unknown) (unknown) (unknown) (no date) (unknown) (unknown) Medical Histor y (Updated 05/05/22 @ 15:35 by Rebecca Polk RN) (units unknown) (unknown) (unknown) (no date) (unknown) (unknown) Medications (units unknown) (unknown) (unknown) (no date) (unknown) (unknown) Mother Polycys tic kidney disease (units unknown) (unknown) (unknown) (no date) (unknown) (unknown) No Known Drug Allergies Allergy (Unverified 06/16/22 12:19) (units unknown) (unknown) (unknown) (no date) (unknown) (unknown) No no absent 4wks (u nits unknown) (unknown) (unknown) (no date) (unknown) (unknown) Non-Stress Laura t performed?: No (units unknown) (unknown) (unknown) (no date) (unknown) (unknown) Number of Maylin ng Children 0 (units unknown) (unknown) (unknown) (no date) (unknown) (unknown) Number of fetu ses:: Single (units unknown) (unknown) (unknown) (no date) (unknown) (unknown) Nutrition and weight gain counseling: special diet: discussed (units unknown) (unknown) (unknown) (no date) (unknown) (unknown) OB Office Visit (uni ts unknown) (unknown) (unknown) (no date) (unknown) (unknown) OB Visit Log (units unknown) (unknown) (unknown) (no date) (unknown) (unknown) On contr ol at conception?: No (units unknown) (unknown) (unknown) (no date) (unknown) (unknown) Other Estimate s 12/31/22 LMP (Certain) 11w 5d (units unknown) (unknown) (unknown) (no date) (unknown) (unknown) PFSH (units unknown) (unknown) (unknown) (no date) (unknown) (unknown) Pap LSIL 01/23 22, but no reflex HPV was run, no f/u done. 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 treated and cured) (units unknown) (unknown) (unknown) (no date) (unknown) (unknown) Partner histor y of genital herpes: Yes (units unknown) (unknown) (unknown) (no date) (unknown) (unknown) Partner: Willian Lopez (units unknown) (unknown) (unknown) (no date) (unknown) (unknown) Patient's age 35 years or older as of estimated date of delivery: No (units unknown) (unknown) (unknown) (no date) (unknown) (unknown) Patient: Colleen Lopez MR#: [id number] (units unknown) (unknown) (unknown) (no date) (unknown) (unknown) Client Reporting Associate: Masha (units unknown) (unknown) (unknown) (no date) (unknown) (unknown) Personal histo ry of STD: HPV (? no HPV actually run from pap) (units unknown) (unknown) (unknown) (no date) (unknown) (unknown) Personal histo ry of genital herpes: No (units unknown) (unknown) (unknown) (no date) (unknown) (unknown) Polycystic kid shannan disease (units unknown) (unknown) (unknown) (no date) (unknown) (unknown) Position Sitting (un its unknown) (unknown) (unknown) (no date) (unknown) (unknown) History (u nits unknown) (unknown) (unknown) (no date) (unknown) (unknown) type :: First (units unknown) (unknown) (unknown) (no date) (unknown) (unknown) Education ( units unknown) (unknown) (unknown) (no date) (unknown) (unknown) Initi al Assessment (units unknown) (unknown) (unknown) (no date) (unknown) (unknown) Speci fic Issues/Plans (units unknown) (unknown) (unknown) (no date) (unknown) (unknown) Testi ng: discussed (units unknown) (unknown) (unknown) (no date) (unknown) (unknown) Visit (unit s unknown) (unknown) (unknown) (no date) (unknown) (unknown) educa tion packet: Child education/plan, symptoms, (units unknown) (unknown) (unknown) (no date) (unknown) (unknown) Primary Care Provider: KELLEN (units unknown) (unknown) (unknown) (no date) (unknown) (unknown) Primary Ob Provider: Faith Flanagan (units unknown) (unknown) (unknown) (no date) (unknown) (unknown) Prior GBS-Infe cted child: No (units unknown) (unknown) (unknown) (no date) (unknown) (unknown) Providers (units unknown) (unknown) (unknown) (no date) (unknown) (unknown) Pulse 84 (units unknown) (unknown) (unknown) (no date) (unknown) (unknown) Pulse Source Palpation (units unknown) (unknown) (unknown) (no date) (unknown) (unknown) Rash or viral illness since last menstrual period: Yes (URI vs allergies (Covid (units unknown) (unknown) (unknown) (no date) (unknown) (unknown) Reason For Visit (un its unknown) (unknown) (unknown) (no date) (unknown) (unknown) Recent travel outside of country?: Yes ([place] only) (units unknown) (unknown) (unknown) (no date) (unknown) (unknown) Recurrent preg haven loss or a stillbirth: No (units unknown) (unknown) (unknown) (no date) (unknown) (unknown) 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), (units unknown) (unknown) (unknown) (no date) (unknown) (unknown) 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) and Reports Other inhe (units unknown) (unknown) (unknown) (no date) (unknown) (unknown) 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) (units unknown) (unknown) (unknown) (no date) (unknown) (unknown) Safety (units unknown) (unknown) (unknown) (no date) (unknown) (unknown) Seasonal allergies ( units unknown) (unknown) (unknown) (no date) (unknown) (unknown) Seatbelt use a nd Influenza vaccine (already had flu shot, Covid x2) (units unknown) (unknown) (unknown) (no date) (unknown) (unknown) Signed By: (units unknown) (unknown) (unknown) (no date) (unknown) (unknown) Sister Depression (u nits unknown) (unknown) (unknown) (no date) (unknown) (unknown) Smoking Status : Former smoker (quit vaping 11/2021) (units unknown) (unknown) (unknown) (no date) (unknown) (unknown) Smoking/Tobacc o use: discussed (units unknown) (unknown) (unknown) (no date) (unknown) (unknown) Social History (unit s unknown) (unknown) (unknown) (no date) (unknown) (unknown) Status: Acute (units unknown) (unknown) (unknown) (no date) (unknown) (unknown) Support Person (s):: Willian (units unknown) (unknown) (unknown) (no date) (unknown) (unknown) Surgical Histo ry (Updated 05/05/22 @ 15:35 by Rebecca Polk RN) (units unknown) (unknown) (unknown) (no date) (unknown) (unknown) Surrogate ?: no (units unknown) (unknown) (unknown) (no date) (unknown) (unknown) Symptoms since LMP: Reports amenorrhea, nausea, fatigue, breast tenderness, (units unknown) (unknown) (unknown) (no date) (unknown) (unknown) Teratogen Expo sures since LMP/Conception: Denies prescription medications, (units unknown) (unknown) (unknown) (no date) (unknown) (unknown) Testing Education (u nits unknown) (unknown) (unknown) (no date) (unknown) (unknown) Testing educat ion completed: group B strep, Spina bifida testing and Cell Free (units unknown) (unknown) (unknown) (no date) (unknown) (unknown) This note may have been all or partially generated using voice recognition (units unknown) (unknown) (unknown) (no date) (unknown) (unknown) Tobacco + Subs tance Use (units unknown) (unknown) (unknown) (no date) (unknown) (unknown) Tobacco Status (unit s unknown) (unknown) (unknown) (no date) (unknown) (unknown) Trimester:: 1s t Trimester (<14wks) (units unknown) (unknown) (unknown) (no date) (unknown) (unknown) Type(s) of exercise: walking (units unknown) (unknown) (unknown) (no date) (unknown) (unknown) UProtein Movem ent PreLabor FHR Fndl Ht Pres Edema Cerv Exam US/Comment Next Appt (units unknown) (unknown) (unknown) (no date) (unknown) (unknown) Ultrasound performed?: No (units unknown) (unknown) (unknown) (no date) (unknown) (unknown) Varicella/chic rodrigue pox status: immunized (units unknown) (unknown) (unknown) (no date) (unknown) (unknown) 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 , 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 (units unknown) (unknown) (unknown) (no date) (unknown) (unknown) Vitals (units unknown) (unknown) (unknown) (no date) (unknown) (unknown) Vitamins and i julio c, Diet and weight gain, Fish and mercury intake, Smoking, (units unknown) (unknown) (unknown) (no date) (unknown) (unknown) WG (units unknown) (unknown) (unknown) (no date) (unknown) (unknown) Weeks gestatio n:: 11 (units unknown) (unknown) (unknown) (no date) (unknown) (unknown) Weight 218 lb 8 oz ( units unknown) (unknown) (unknown) (no date) (unknown) (unknown) [place] teeth extracted () (units unknown) (unknown) (unknown) (no date) (unknown) (unknown) Zika virus exposure: No (units unknown) (unknown) (unknown) (no date) (unknown) (unknown) alcohol intake : former (5-7 glasses of wine/week when not ) (units unknown) (unknown) (unknown) (no date) (unknown) (unknown) anyone in [facility] family with: (units unknown) (unknown) (unknown) (no date) (unknown) (unknown) at PP (units unknown) (unknown) (unknown) (no date) (unknown) (unknown) caffeine: Yes (<100mg/day) (units unknown) (unknown) (unknown) (no date) (unknown) (unknown) carbon monox detector in home: Yes (units unknown) (unknown) (unknown) (no date) (unknown) (unknown) caregiver/supp ort person: No (units unknown) (unknown) (unknown) (no date) (unknown) (unknown) connective tis norma d/o) (units unknown) (unknown) (unknown) (no date) (unknown) (unknown) 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 while ) (units unknown) (unknown) (unknown) (no date) (unknown) (unknown) ctivity, X-ray exposure, Medication use, Sauna/hot tub use, Dental care, Travel, (units unknown) (unknown) (unknown) (no date) (unknown) (unknown) current occupational exposures/hazards: Yes (exposure in the building, but no (units unknown) (unknown) (unknown) (no date) (unknown) (unknown) daily servings fruits/ve-4 (units unknown) (unknown) (unknown) (no date) (unknown) (unknown) described, vis it schedule reviewed, ultrasounds policy reviewed, coverage 24 (units unknown) (unknown) (unknown) (no date) (unknown) (unknown) discussed, tuberculosis exposure discussed, CMV discussed, Toxoplasmosis (units unknown) (unknown) (unknown) (no date) (unknown) (unknown) do you feel sa fe at home: Yes (units unknown) (unknown) (unknown) (no date) (unknown) (unknown) duration: 30-4 5 minutes/day (units unknown) (unknown) (unknown) (no date) (unknown) (unknown) during the pas t year weight has: increased > 10 lbs (units unknown) (unknown) (unknown) (no date) (unknown) (unknown) education leve l: college (some college) (units unknown) (unknown) (unknown) (no date) (unknown) (unknown) fire extinguis her in home: Yes (units unknown) (unknown) (unknown) (no date) (unknown) (unknown) firearms in ho me: Yes (some locked up, not all) (units unknown) (unknown) (unknown) (no date) (unknown) (unknown) frequency: 3-4 times per week (units unknown) (unknown) (unknown) (no date) (unknown) (unknown) have occurred. If there are any questions, please contact the Medical Records (units unknown) (unknown) (unknown) (no date) (unknown) (unknown) helmet use: Yes (uni ts unknown) (unknown) (unknown) (no date) (unknown) (unknown) hours a day an d participation of father in care and office visits (units unknown) (unknown) (unknown) (no date) (unknown) (unknown) household memb ers: spouse and friend(s) (units unknown) (unknown) (unknown) (no date) (unknown) (unknown) housing: house (unit s unknown) (unknown) (unknown) (no date) (unknown) (unknown) irritability a nd other (constipation) (units unknown) (unknown) (unknown) (no date) (unknown) (unknown) lives independently: Yes (units unknown) (unknown) (unknown) (no date) (unknown) (unknown) marital status : (units unknown) (unknown) (unknown) (no date) (unknown) (unknown) may occur. 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 Please (units unknown) (unknown) (unknown) (no date) (unknown) (unknown) pets and anima ls: Yes (units unknown) (unknown) (unknown) (no date) (unknown) (unknown) precautions, Listeriosis prevention and Rubella Immunization (units unknown) (unknown) (unknown) (no date) (unknown) (unknown) prenat.vits,ca l,min -iron-folic 1 tab PO DAILY 05/05/22 [History Confirmed (units unknown) (unknown) (unknown) (no date) (unknown) (unknown) read the note carefully and recognize, using context, where these substitutions (units unknown) (unknown) (unknown) (no date) (unknown) (unknown) rited genetic or chromosomal disorder (polycystic kidneys, Marfan's) (units unknown) (unknown) (unknown) (no date) (unknown) (unknown) seatbelt use: always (units unknown) (unknown) (unknown) (no date) (unknown) (unknown) second hand exposure: Yes (roommate vapes) (units unknown) (unknown) (unknown) (no date) (unknown) (unknown) software. Alth ough every effort is made to edit content, coordinate measuring machine operator errors (units unknown) (unknown) (unknown) (no date) (unknown) (unknown) special jeri needs: No (units unknown) (unknown) (unknown) (no date) (unknown) (unknown) substance use type: does not use (units unknown) (unknown) (unknown) (no date) (unknown) (unknown) travel history : recent (domestic, [place]) (units unknown) (unknown) (unknown) (no date) (unknown) (unknown) water heater t emp set < 120 deg: Yes (units unknown) (unknown) (unknown) (no date) (unknown) (unknown) well-balanced diet: about half the time (units unknown) (unknown) (unknown) (no date) (unknown) (unknown) working smoke detector in home: Yes (units unknown) (unknown) Result panel 65 (unknown) (no date) (unknown) (unknown) (no value) (units unknown) (unknown) (unknown) (no date) (unknown) (unknown) (+8 lb 8 oz) 110/66 (units unknown) (unknown) (unknown) (no date) (unknown) (unknown) (1) Encounter for supervision of normal first , first trimester: (units unknown) (unknown) (unknown) (no date) (unknown) (unknown) (2) 11 weeks gestation of : (units unknown) (unknown) (unknown) (no date) (unknown) (unknown) Genetic Screening/Teratolog y Counseling - Includes patient, baby's father, or (units unknown) (unknown) (unknown) (no date) (unknown) (unknown) -?-?-?-?-?-?-? -?-?- ?-?-? (units unknown) (unknown) (unknown) (no date) (unknown) (unknown) 06/16/22 (units unknown) (unknown) (unknown) (no date) (unknown) (unknown) 06/16/22] (units unknown) (unknown) (unknown) (no date) (unknown) (unknown) [id number] (units unknown) (unknown) (unknown) (no date) (unknown) (unknown) 12/29/22 Ultra sound #1 12w 0d (units unknown) (unknown) (unknown) (no date) (unknown) (unknown) 11w 5d 218 lb 8 oz ( units unknown) (unknown) (unknown) (no date) (unknown) (unknown) 12:18 (units unknown) (unknown) (unknown) (no date) (unknown) (unknown) Abnormal lab v alues 1st trimester: discussed (units unknown) (unknown) (unknown) (no date) (unknown) (unknown) Accompanied by : (units unknown) (unknown) (unknown) (no date) (unknown) (unknown) Acne (units unknown) (unknown) (unknown) (no date) (unknown) (unknown) 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[employer], 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 (units unknown) (unknown) (unknown) (no date) (unknown) (unknown) Add'l Plan Details ( units unknown) (unknown) (unknown) (no date) (unknown) (unknown) Age/Sex: 21 / F Date of Service: (units unknown) (unknown) (unknown) (no date) (unknown) (unknown) Allergies (units unknown) (unknown) (unknown) (no date) (unknown) (unknown) [facility] (units unknown) (unknown) (unknown) (no date) (unknown) (unknown) [place] [id number] (units unknown) (unknown) (unknown) (no date) (unknown) (unknown) Aneuploidy Screening Offered: Declined (unsure, wants to discuss w/ ) (units unknown) (unknown) (unknown) (no date) (unknown) (unknown) Anticipated co urse of care: discussed (units unknown) (unknown) (unknown) (no date) (unknown) (unknown) Anxiety (units unknown) (unknown) (unknown) (no date) (unknown) (unknown) Arthritis (units unknown) (unknown) (unknown) (no date) (unknown) (unknown) Assessment and Plan (units unknown) (unknown) (unknown) (no date) (unknown) (unknown) Attending Dr: Faith Flanagan MD (units unknown) (unknown) (unknown) (no date) (unknown) (unknown) [employer] [facility]. No exposures for over a month. Will be transfering (units unknown) (unknown) (unknown) (no date) (unknown) (unknown) BMI 34.2 (units unknown) (unknown) (unknown) (no date) (unknown) (unknown) BP 110/66 (units unknown) (unknown) (unknown) (no date) (unknown) (unknown) Plan/Preferences (units unknown) (unknown) (unknown) (no date) (unknown) (unknown) Planning (unit s unknown) (unknown) (unknown) (no date) (unknown) (unknown) Blood Pressure Location Lt brachial (units unknown) (unknown) (unknown) (no date) (unknown) (unknown) Blood transfusions?: yes (Never had but would accept) (units unknown) (unknown) (unknown) (no date) (unknown) (unknown) Caffeine use, Exercise and activity, work/environmental/ hazards, Sexual a (units unknown) (unknown) (unknown) (no date) (unknown) (unknown) Childbirth Cla sses: discussed (units unknown) (unknown) (unknown) (no date) (unknown) (unknown) Current Estima te 12/31/22 Manual 11w 5d Final MOMO (units unknown) (unknown) (unknown) (no date) (unknown) (unknown) Current Pregna ncy History (units unknown) (unknown) (unknown) (no date) (unknown) (unknown) DNA (units unknown) (unknown) (unknown) (no date) (unknown) (unknown) : 1 Acct:[id number] (units unknown) (unknown) (unknown) (no date) (unknown) (unknown) Date of positi ve home test: 04/19/22 (units unknown) (unknown) (unknown) (no date) (unknown) (unknown) Date (units unknown) (unknown) (unknown) (no date) (unknown) (unknown) Denies over th e counter medications, Denies alcohol, Denies illicit drugs and (units unknown) (unknown) (unknown) (no date) (unknown) (unknown) Depression: discussed (units unknown) (unknown) (unknown) (no date) (unknown) (unknown) Dept at . (units unknown) (unknown) (unknown) (no date) (unknown) (unknown) Diet and Exercise (u nits unknown) (unknown) (unknown) (no date) (unknown) (unknown) Documented By: Faith Flanagan MD 06/16/22 0920 (units unknown) (unknown) (unknown) (no date) (unknown) (unknown) Draft (units unknown) (unknown) (unknown) (no date) (unknown) (unknown) MOMO Calculator (unit s unknown) (unknown) (unknown) (no date) (unknown) (unknown) EGA Weight BP UGlucose (units unknown) (unknown) (unknown) (no date) (unknown) (unknown) Estimated Deli very Date Method Current (units unknown) (unknown) (unknown) (no date) (unknown) (unknown) FOB sister d as infant from hypoplastic left heart syndrome. Cousin cystic (units unknown) (unknown) (unknown) (no date) (unknown) (unknown) Family History (Updated 05/05/22 @ 15:59 by Rebecca Polk RN) (units unknown) (unknown) (unknown) (no date) (unknown) (unknown) Family/Other Marfans syndrome (units unknown) (unknown) (unknown) (no date) (unknown) (unknown) Family/Other Marfans syndrome (units unknown) (unknown) (unknown) (no date) (unknown) (unknown) Family/Other Polycystic kidney disease (units unknown) (unknown) (unknown) (no date) (unknown) (unknown) Father of Baby : same (units unknown) (unknown) (unknown) (no date) (unknown) (unknown) First Trimeste r Education Checklist (units unknown) (unknown) (unknown) (no date) (unknown) (unknown) Genetic Screen ing + Counseling (units unknown) (unknown) (unknown) (no date) (unknown) (unknown) Genetic Screening (u nits unknown) (unknown) (unknown) (no date) (unknown) (unknown) Genetic polycy stic kidney disease; family Hx Marfan Syndrome (pt has no known (units unknown) (unknown) (unknown) (no date) (unknown) (unknown) Grandfather Marfans syndrome (units unknown) (unknown) (unknown) (no date) (unknown) (unknown) Grandfather Me ntal health problem (units unknown) (unknown) (unknown) (no date) (unknown) (unknown) Grandmother Lymphoma (units unknown) (unknown) (unknown) (no date) (unknown) (unknown) 1 Mult iple births 0 (units unknown) (unknown) (unknown) (no date) (unknown) (unknown) HIV risk evaluation: low risk (units unknown) (unknown) (unknown) (no date) (unknown) (unknown) Health Center Education (units unknown) (unknown) (unknown) (no date) (unknown) (unknown) Health center information: nature of practice discussed, personnel (units unknown) (unknown) (unknown) (no date) (unknown) (unknown) Height 5 ft 7 in (un its unknown) (unknown) (unknown) (no date) (unknown) (unknown) Hepatitis C ri sk evaluation: low risk (units unknown) (unknown) (unknown) (no date) (unknown) (unknown) History of Hepatitis B: No (units unknown) (unknown) (unknown) (no date) (unknown) (unknown) History of Hepatitis C: No (units unknown) (unknown) (unknown) (no date) (unknown) (unknown) History of rem oval of skin mole (units unknown) (unknown) (unknown) (no date) (unknown) (unknown) Hospital: [facility] (units unknown) (unknown) (unknown) (no date) (unknown) (unknown) 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) (units unknown) (unknown) (unknown) (no date) (unknown) (unknown) Hx # Pregnancies 0 Elective abortions 0 (units unknown) (unknown) (unknown) (no date) (unknown) (unknown) Hx # Term Pregnancies 0 Ectopic pregnancies 0 (units unknown) (unknown) (unknown) (no date) (unknown) (unknown) will be adopted?: no (units unknown) (unknown) (unknown) (no date) (unknown) (unknown) Infection History (u nits unknown) (unknown) (unknown) (no date) (unknown) (unknown) Infectious Dis ease Education (units unknown) (unknown) (unknown) (no date) (unknown) (unknown) Infectious dis ease exposure: chicken pox immunity discussed, hepatitis risk (units unknown) (unknown) (unknown) (no date) (unknown) (unknown) Initial Weight : 210 lb (units unknown) (unknown) (unknown) (no date) (unknown) (unknown) Initials (units unknown) (unknown) (unknown) (no date) (unknown) (unknown) Intake Clinica l Staff (units unknown) (unknown) (unknown) (no date) (unknown) (unknown) Intake perform ed by: Shaniqua Landry (units unknown) (unknown) (unknown) (no date) (unknown) (unknown) Intake (units unknown) (unknown) (unknown) (no date) (unknown) (unknown) ROSALIE (units unknown) (unknown) (unknown) (no date) (unknown) (unknown) LGSIL on Pap s mear of cervix (units unknown) (unknown) (unknown) (no date) (unknown) (unknown) Live with some one with TB or exposed to TB: No (units unknown) (unknown) (unknown) (no date) (unknown) (unknown) Loc: [facility] (units unknown) (unknown) (unknown) (no date) (unknown) (unknown) Marital status : (units unknown) (unknown) (unknown) (no date) (unknown) (unknown) Medical Histor y (Updated 06/16/22 @ 12:31 by Shaniqua Landry MA) (units unknown) (unknown) (unknown) (no date) (unknown) (unknown) Medications (units unknown) (unknown) (unknown) (no date) (unknown) (unknown) Mother Polycys tic kidney disease (units unknown) (unknown) (unknown) (no date) (unknown) (unknown) No Known Drug Allergies Allergy (Unverified 06/16/22 12:19) (units unknown) (unknown) (unknown) (no date) (unknown) (unknown) No no absent 4wks (u nits unknown) (unknown) (unknown) (no date) (unknown) (unknown) No significant cramping. Nausea is manageable - using bogdan mints and (units unknown) (unknown) (unknown) (no date) (unknown) (unknown) Non-Stress Laura t performed?: No (units unknown) (unknown) (unknown) (no date) (unknown) (unknown) Notes (units unknown) (unknown) (unknown) (no date) (unknown) (unknown) Number of Maylin ng Children 0 (units unknown) (unknown) (unknown) (no date) (unknown) (unknown) Number of fetu ses:: Single (units unknown) (unknown) (unknown) (no date) (unknown) (unknown) Nutrition and weight gain counseling: special diet: discussed (units unknown) (unknown) (unknown) (no date) (unknown) (unknown) OB Office Visit (uni ts unknown) (unknown) (unknown) (no date) (unknown) (unknown) OB Visit Log (units unknown) (unknown) (unknown) (no date) (unknown) (unknown) On contr ol at conception?: No (units unknown) (unknown) (unknown) (no date) (unknown) (unknown) Other Estimate s 12/31/22 LMP (Certain) 11w 5d (units unknown) (unknown) (unknown) (no date) (unknown) (unknown) PFSH (units unknown) (unknown) (unknown) (no date) (unknown) (unknown) Pap LSIL 01/23 22, but no reflex HPV was run, no f/u done. 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 treated and cured) (units unknown) (unknown) (unknown) (no date) (unknown) (unknown) Partner histor y of genital herpes: Yes (units unknown) (unknown) (unknown) (no date) (unknown) (unknown) Partner: Willian Jessica (units unknown) (unknown) (unknown) (no date) (unknown) (unknown) Patient's age 35 years or older as of estimated date of delivery: No (units unknown) (unknown) (unknown) (no date) (unknown) (unknown) Patient: Colleen Lopez MR#: [id number] (units unknown) (unknown) (unknown) (no date) (unknown) (unknown) Client Reporting Associate: Masha (units unknown) (unknown) (unknown) (no date) (unknown) (unknown) Personal histo ry of STD: HPV (? no HPV actually run from pap) (units unknown) (unknown) (unknown) (no date) (unknown) (unknown) Personal histo ry of genital herpes: No (units unknown) (unknown) (unknown) (no date) (unknown) (unknown) Polycystic kid shannan disease (units unknown) (unknown) (unknown) (no date) (unknown) (unknown) Position Sitting (un its unknown) (unknown) (unknown) (no date) (unknown) (unknown) History (u nits unknown) (unknown) (unknown) (no date) (unknown) (unknown) type :: First (units unknown) (unknown) (unknown) (no date) (unknown) (unknown) Education ( units unknown) (unknown) (unknown) (no date) (unknown) (unknown) Initi al Assessment (units unknown) (unknown) (unknown) (no date) (unknown) (unknown) Speci fic Issues/Plans (units unknown) (unknown) (unknown) (no date) (unknown) (unknown) Testi ng: discussed (units unknown) (unknown) (unknown) (no date) (unknown) (unknown) Visit (unit s unknown) (unknown) (unknown) (no date) (unknown) (unknown) educa tion packet: Child education/plan, symptoms, (units unknown) (unknown) (unknown) (no date) (unknown) (unknown) Primary Care Provider: DOD (units unknown) (unknown) (unknown) (no date) (unknown) (unknown) Primary Ob Provider: Faith Flanagan (units unknown) (unknown) (unknown) (no date) (unknown) (unknown) Prior GBS-Infe cted child: No (units unknown) (unknown) (unknown) (no date) (unknown) (unknown) Providers (units unknown) (unknown) (unknown) (no date) (unknown) (unknown) Pulse 84 (units unknown) (unknown) (unknown) (no date) (unknown) (unknown) Pulse Source Palpation (units unknown) (unknown) (unknown) (no date) (unknown) (unknown) Rash or viral illness since last menstrual period: Yes (URI vs allergies (Covid (units unknown) (unknown) (unknown) (no date) (unknown) (unknown) Reason For Visit (un its unknown) (unknown) (unknown) (no date) (unknown) (unknown) Recent travel outside of country?: Yes ([place] only) (units unknown) (unknown) (unknown) (no date) (unknown) (unknown) Recurrent preg haven loss or a stillbirth: No (units unknown) (unknown) (unknown) (no date) (unknown) (unknown) 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), (units unknown) (unknown) (unknown) (no date) (unknown) (unknown) 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) and Reports Other inhe (units unknown) (unknown) (unknown) (no date) (unknown) (unknown) 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) (units unknown) (unknown) (unknown) (no date) (unknown) (unknown) Safety (units unknown) (unknown) (unknown) (no date) (unknown) (unknown) Seasonal allergies ( units unknown) (unknown) (unknown) (no date) (unknown) (unknown) Seatbelt use a nd Influenza vaccine (already had flu shot, Covid x2) (units unknown) (unknown) (unknown) (no date) (unknown) (unknown) Signed By: (units unknown) (unknown) (unknown) (no date) (unknown) (unknown) Sister Depression (u nits unknown) (unknown) (unknown) (no date) (unknown) (unknown) Smoking Status : Former smoker (quit vaping 11/2021) (units unknown) (unknown) (unknown) (no date) (unknown) (unknown) Smoking/Tobacc o use: discussed (units unknown) (unknown) (unknown) (no date) (unknown) (unknown) Social History (unit s unknown) (unknown) (unknown) (no date) (unknown) (unknown) Status: Acute (units unknown) (unknown) (unknown) (no date) (unknown) (unknown) Support Person (s):: Willian (units unknown) (unknown) (unknown) (no date) (unknown) (unknown) Surgical Histo ry (Updated 05/05/22 @ 15:35 by Rebecca Polk RN) (units unknown) (unknown) (unknown) (no date) (unknown) (unknown) Surrogate ?: no (units unknown) (unknown) (unknown) (no date) (unknown) (unknown) Symptoms since LMP: Reports amenorrhea, nausea, fatigue, breast tenderness, (units unknown) (unknown) (unknown) (no date) (unknown) (unknown) Teratogen Expo sures since LMP/Conception: Denies prescription medications, (units unknown) (unknown) (unknown) (no date) (unknown) (unknown) Testing Education (u nits unknown) (unknown) (unknown) (no date) (unknown) (unknown) Testing educat ion completed: group B strep, Spina bifida testing and Cell Free (units unknown) (unknown) (unknown) (no date) (unknown) (unknown) This note may have been all or partially generated using voice recognition (units unknown) (unknown) (unknown) (no date) (unknown) (unknown) Tobacco + Subs tance Use (units unknown) (unknown) (unknown) (no date) (unknown) (unknown) Tobacco Status (unit s unknown) (unknown) (unknown) (no date) (unknown) (unknown) Trimester:: 1s t Trimester (<14wks) (units unknown) (unknown) (unknown) (no date) (unknown) (unknown) Type(s) of exercise: walking (units unknown) (unknown) (unknown) (no date) (unknown) (unknown) UProtein Movem ent PreLabor FHR Fndl Ht Pres Edema Cerv Exam US/Comment Next Appt (units unknown) (unknown) (unknown) (no date) (unknown) (unknown) Ultrasound performed?: No (units unknown) (unknown) (unknown) (no date) (unknown) (unknown) Varicella/chic rodrigue pox status: immunized (units unknown) (unknown) (unknown) (no date) (unknown) (unknown) Visit Date: 06/16/22 Last Updated by: Faith Flanagan MD (units unknown) (unknown) (unknown) (no date) (unknown) (unknown) 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 , 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 (units unknown) (unknown) (unknown) (no date) (unknown) (unknown) Vitals (units unknown) (unknown) (unknown) (no date) (unknown) (unknown) Vitamins and i julio c, Diet and weight gain, Fish and mercury intake, Smoking, (units unknown) (unknown) (unknown) (no date) (unknown) (unknown) WG (units unknown) (unknown) (unknown) (no date) (unknown) (unknown) Weeks gestatio n:: 11 (units unknown) (unknown) (unknown) (no date) (unknown) (unknown) Weight 218 lb 8 oz ( units unknown) (unknown) (unknown) (no date) (unknown) (unknown) [place] teeth extracted () (units unknown) (unknown) (unknown) (no date) (unknown) (unknown) Zika virus exposure: No (units unknown) (unknown) (unknown) (no date) (unknown) (unknown) alcohol intake : former (5-7 glasses of wine/week when not ) (units unknown) (unknown) (unknown) (no date) (unknown) (unknown) anyone in [facility] family with: (units unknown) (unknown) (unknown) (no date) (unknown) (unknown) at PP (units unknown) (unknown) (unknown) (no date) (unknown) (unknown) caffeine: Yes (<100mg/day) (units unknown) (unknown) (unknown) (no date) (unknown) (unknown) carbon monox detector in home: Yes (units unknown) (unknown) (unknown) (no date) (unknown) (unknown) caregiver/supp ort person: No (units unknown) (unknown) (unknown) (no date) (unknown) (unknown) connective tis norma d/o) (units unknown) (unknown) (unknown) (no date) (unknown) (unknown) 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 while ) (units unknown) (unknown) (unknown) (no date) (unknown) (unknown) ctivity, X-ray exposure, Medication use, Sauna/hot tub use, Dental care, Travel, (units unknown) (unknown) (unknown) (no date) (unknown) (unknown) current occupational exposures/hazards: Yes (exposure in the building, but no (units unknown) (unknown) (unknown) (no date) (unknown) (unknown) daily servings fruits/ve-4 (units unknown) (unknown) (unknown) (no date) (unknown) (unknown) described, vis it schedule reviewed, ultrasounds policy reviewed, coverage 24 (units unknown) (unknown) (unknown) (no date) (unknown) (unknown) discussed, tuberculosis exposure discussed, CMV discussed, Toxoplasmosis (units unknown) (unknown) (unknown) (no date) (unknown) (unknown) do you feel sa fe at home: Yes (units unknown) (unknown) (unknown) (no date) (unknown) (unknown) duration: 30-4 5 minutes/day (units unknown) (unknown) (unknown) (no date) (unknown) (unknown) during the pas t year weight has: increased > 10 lbs (units unknown) (unknown) (unknown) (no date) (unknown) (unknown) education leve l: college (some college) (units unknown) (unknown) (unknown) (no date) (unknown) (unknown) fibrosis. (units unknown) (unknown) (unknown) (no date) (unknown) (unknown) fire extinguis her in home: Yes (units unknown) (unknown) (unknown) (no date) (unknown) (unknown) firearms in ho me: Yes (some locked up, not all) (units unknown) (unknown) (unknown) (no date) (unknown) (unknown) frequency: 3-4 times per week (units unknown) (unknown) (unknown) (no date) (unknown) (unknown) have occurred. If there are any questions, please contact the Medical Records (units unknown) (unknown) (unknown) (no date) (unknown) (unknown) helmet use: Yes (uni ts unknown) (unknown) (unknown) (no date) (unknown) (unknown) hours a day an d participation of father in care and office visits (units unknown) (unknown) (unknown) (no date) (unknown) (unknown) household memb ers: spouse and friend(s) (units unknown) (unknown) (unknown) (no date) (unknown) (unknown) housing: house (unit s unknown) (unknown) (unknown) (no date) (unknown) (unknown) irritability a nd other (constipation) (units unknown) (unknown) (unknown) (no date) (unknown) (unknown) lives independently: Yes (units unknown) (unknown) (unknown) (no date) (unknown) (unknown) marital status : (units unknown) (unknown) (unknown) (no date) (unknown) (unknown) may occur. 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 Please (units unknown) (unknown) (unknown) (no date) (unknown) (unknown) pets and anima ls: Yes (units unknown) (unknown) (unknown) (no date) (unknown) (unknown) precautions, Listeriosis prevention and Rubella Immunization (units unknown) (unknown) (unknown) (no date) (unknown) (unknown) prenat.vits,ca l,min -iron-folic 1 tab PO DAILY 05/05/22 [History Confirmed (units unknown) (unknown) (unknown) (no date) (unknown) (unknown) read the note carefully and recognize, using context, where these substitutions (units unknown) (unknown) (unknown) (no date) (unknown) (unknown) rited genetic or chromosomal disorder (polycystic kidneys, Marfan's) (units unknown) (unknown) (unknown) (no date) (unknown) (unknown) seatbelt use: always (units unknown) (unknown) (unknown) (no date) (unknown) (unknown) second hand exposure: Yes (roommate vapes) (units unknown) (unknown) (unknown) (no date) (unknown) (unknown) software. Alth ough every effort is made to edit content, coordinate measuring machine operator errors (units unknown) (unknown) (unknown) (no date) (unknown) (unknown) special jeri needs: No (units unknown) (unknown) (unknown) (no date) (unknown) (unknown) substance use type: does not use (units unknown) (unknown) (unknown) (no date) (unknown) (unknown) tea, taking B6. 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 (units unknown) (unknown) (unknown) (no date) (unknown) (unknown) travel history : recent (domestic, [place]) (units unknown) (unknown) (unknown) (no date) (unknown) (unknown) water heater t emp set < 120 deg: Yes (units unknown) (unknown) (unknown) (no date) (unknown) (unknown) well-balanced diet: about half the time (units unknown) (unknown) (unknown) (no date) (unknown) (unknown) working smoke detector in home: Yes (units unknown) (unknown) Result panel 66 (unknown) (no date) (unknown) (unknown) (no value) (units unknown) (unknown) (unknown) (no date) (unknown) (unknown) (+8 lb 8 oz) 110/66 (units unknown) (unknown) (unknown) (no date) (unknown) (unknown) (1) Encounter for supervision of normal first , first trimester: (units unknown) (unknown) (unknown) (no date) (unknown) (unknown) (2) 11 weeks gestation of : (units unknown) (unknown) (unknown) (no date) (unknown) (unknown) Genetic Screening/Teratolog y Counseling - Includes patient, baby's father, or (units unknown) (unknown) (unknown) (no date) (unknown) (unknown) -?-?-?-?-?-?-? -?-?- ?-?-? (units unknown) (unknown) (unknown) (no date) (unknown) (unknown) 06/16/22 (units unknown) (unknown) (unknown) (no date) (unknown) (unknown) 06/16/22] (units unknown) (unknown) (unknown) (no date) (unknown) (unknown) [id number] (units unknown) (unknown) (unknown) (no date) (unknown) (unknown) 12/29/22 Ultra sound #1 12w 0d (units unknown) (unknown) (unknown) (no date) (unknown) (unknown) 11w 5d 218 lb 8 oz ( units unknown) (unknown) (unknown) (no date) (unknown) (unknown) 12:18 (units unknown) (unknown) (unknown) (no date) (unknown) (unknown) 4wks (units unknown) (unknown) (unknown) (no date) (unknown) (unknown) Abnormal lab v alues 1st trimester: discussed (units unknown) (unknown) (unknown) (no date) (unknown) (unknown) Accompanied by : (units unknown) (unknown) (unknown) (no date) (unknown) (unknown) Acne (units unknown) (unknown) (unknown) (no date) (unknown) (unknown) 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[employer], 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 (units unknown) (unknown) (unknown) (no date) (unknown) (unknown) Add'l Plan Details ( units unknown) (unknown) (unknown) (no date) (unknown) (unknown) Age/Sex: 21 / F Date of Service: (units unknown) (unknown) (unknown) (no date) (unknown) (unknown) Allergies (units unknown) (unknown) (unknown) (no date) (unknown) (unknown) [facility] (units unknown) (unknown) (unknown) (no date) (unknown) (unknown) [place] [id number] (units unknown) (unknown) (unknown) (no date) (unknown) (unknown) Aneuploidy Screening Offered: Declined (unsure, wants to discuss w/ ) (units unknown) (unknown) (unknown) (no date) (unknown) (unknown) Anticipated co urse of care: discussed (units unknown) (unknown) (unknown) (no date) (unknown) (unknown) Anxiety (units unknown) (unknown) (unknown) (no date) (unknown) (unknown) Arthritis (units unknown) (unknown) (unknown) (no date) (unknown) (unknown) Assessment and Plan (units unknown) (unknown) (unknown) (no date) (unknown) (unknown) Attending Dr: Faith Flanagan MD (units unknown) (unknown) (unknown) (no date) (unknown) (unknown) [employer] [facility]. No exposures for over a month. Will be transfering (units unknown) (unknown) (unknown) (no date) (unknown) (unknown) BMI 34.2 (units unknown) (unknown) (unknown) (no date) (unknown) (unknown) BP 110/66 (units unknown) (unknown) (unknown) (no date) (unknown) (unknown) Plan/Preferences (units unknown) (unknown) (unknown) (no date) (unknown) (unknown) Planning (unit s unknown) (unknown) (unknown) (no date) (unknown) (unknown) Blood Pressure Location Lt brachial (units unknown) (unknown) (unknown) (no date) (unknown) (unknown) Blood transfusions?: yes (Never had but would accept) (units unknown) (unknown) (unknown) (no date) (unknown) (unknown) Caffeine use, Exercise and activity, work/environmental/ hazards, Sexual (units unknown) (unknown) (unknown) (no date) (unknown) (unknown) Childbirth Cla sses: discussed (units unknown) (unknown) (unknown) (no date) (unknown) (unknown) Current Estima te 12/31/22 Manual 11w 5d Final MOMO (units unknown) (unknown) (unknown) (no date) (unknown) (unknown) Current Pregna ncy History (units unknown) (unknown) (unknown) (no date) (unknown) (unknown) DNA (units unknown) (unknown) (unknown) (no date) (unknown) (unknown) : 1 Acct:[id number] (units unknown) (unknown) (unknown) (no date) (unknown) (unknown) Date of positi ve home test: 04/19/22 (units unknown) (unknown) (unknown) (no date) (unknown) (unknown) Date (units unknown) (unknown) (unknown) (no date) (unknown) (unknown) Denies over th e counter medications, Denies alcohol, Denies illicit drugs and (units unknown) (unknown) (unknown) (no date) (unknown) (unknown) Depression: discussed (units unknown) (unknown) (unknown) (no date) (unknown) (unknown) Dept at . (units unknown) (unknown) (unknown) (no date) (unknown) (unknown) Diet and Exercise (u nits unknown) (unknown) (unknown) (no date) (unknown) (unknown) Documented By: Faith Flanagan MD 06/16/22 0937 (units unknown) (unknown) (unknown) (no date) (unknown) (unknown) Draft (units unknown) (unknown) (unknown) (no date) (unknown) (unknown) MOMO Calculator (unit s unknown) (unknown) (unknown) (no date) (unknown) (unknown) EGA Weight BP UGlucose (units unknown) (unknown) (unknown) (no date) (unknown) (unknown) Estimated Deli very Date Method Current (units unknown) (unknown) (unknown) (no date) (unknown) (unknown) FOB sister d as infant from hypoplastic left heart syndrome. Cousin cystic (units unknown) (unknown) (unknown) (no date) (unknown) (unknown) Family History (Updated 05/05/22 @ 15:59 by Rebecca Polk RN) (units unknown) (unknown) (unknown) (no date) (unknown) (unknown) Family/Other Marfans syndrome (units unknown) (unknown) (unknown) (no date) (unknown) (unknown) Family/Other Marfans syndrome (units unknown) (unknown) (unknown) (no date) (unknown) (unknown) Family/Other Polycystic kidney disease (units unknown) (unknown) (unknown) (no date) (unknown) (unknown) Father of Baby : same (units unknown) (unknown) (unknown) (no date) (unknown) (unknown) First Trimeste r Education Checklist (units unknown) (unknown) (unknown) (no date) (unknown) (unknown) Genetic Screen ing + Counseling (units unknown) (unknown) (unknown) (no date) (unknown) (unknown) Genetic Screening (u nits unknown) (unknown) (unknown) (no date) (unknown) (unknown) Genetic polycy stic kidney disease; family Hx Marfan Syndrome (pt has no known (units unknown) (unknown) (unknown) (no date) (unknown) (unknown) Grandfather Marfans syndrome (units unknown) (unknown) (unknown) (no date) (unknown) (unknown) Grandfather Me ntal health problem (units unknown) (unknown) (unknown) (no date) (unknown) (unknown) Grandmother Lymphoma (units unknown) (unknown) (unknown) (no date) (unknown) (unknown) 1 Mult iple births 0 (units unknown) (unknown) (unknown) (no date) (unknown) (unknown) HIV risk evaluation: low risk (units unknown) (unknown) (unknown) (no date) (unknown) (unknown) Health Center Education (units unknown) (unknown) (unknown) (no date) (unknown) (unknown) Health center information: nature of practice discussed, personnel (units unknown) (unknown) (unknown) (no date) (unknown) (unknown) Height 5 ft 7 in (un its unknown) (unknown) (unknown) (no date) (unknown) (unknown) Hepatitis C ri sk evaluation: low risk (units unknown) (unknown) (unknown) (no date) (unknown) (unknown) History of Hepatitis B: No (units unknown) (unknown) (unknown) (no date) (unknown) (unknown) History of Hepatitis C: No (units unknown) (unknown) (unknown) (no date) (unknown) (unknown) History of rem oval of skin mole (units unknown) (unknown) (unknown) (no date) (unknown) (unknown) Hospital: (units unknown) (unknown) (unknown) (no date) (unknown) (unknown) 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) (units unknown) (unknown) (unknown) (no date) (unknown) (unknown) Hx # Pregnancies 0 Elective abortions 0 (units unknown) (unknown) (unknown) (no date) (unknown) (unknown) Hx # Term Pregnancies 0 Ectopic pregnancies 0 (units unknown) (unknown) (unknown) (no date) (unknown) (unknown) Infant will be adopted?: no (units unknown) (unknown) (unknown) (no date) (unknown) (unknown) Infection History (u nits unknown) (unknown) (unknown) (no date) (unknown) (unknown) Infectious Dis ease Education (units unknown) (unknown) (unknown) (no date) (unknown) (unknown) Infectious dis ease exposure: chicken pox immunity discussed, hepatitis risk (units unknown) (unknown) (unknown) (no date) (unknown) (unknown) Initial Weight : 210 lb (units unknown) (unknown) (unknown) (no date) (unknown) (unknown) Initials (units unknown) (unknown) (unknown) (no date) (unknown) (unknown) Intake Clinica l Staff (units unknown) (unknown) (unknown) (no date) (unknown) (unknown) Intake perform ed by: Shaniqua Landry (units unknown) (unknown) (unknown) (no date) (unknown) (unknown) Intake (units unknown) (unknown) (unknown) (no date) (unknown) (unknown) ROSALIE (units unknown) (unknown) (unknown) (no date) (unknown) (unknown) LGSIL on Pap s mear of cervix (units unknown) (unknown) (unknown) (no date) (unknown) (unknown) Live with some one with TB or exposed to TB: No (units unknown) (unknown) (unknown) (no date) (unknown) (unknown) Loc: [facility] (units unknown) (unknown) (unknown) (no date) (unknown) (unknown) Marital status : (units unknown) (unknown) (unknown) (no date) (unknown) (unknown) Medical Histor y (Updated 06/16/22 @ 12:31 by Shaniqua Landry MA) (units unknown) (unknown) (unknown) (no date) (unknown) (unknown) Medications (units unknown) (unknown) (unknown) (no date) (unknown) (unknown) Mother Polycys tic kidney disease (units unknown) (unknown) (unknown) (no date) (unknown) (unknown) No Known Drug Allergies Allergy (Unverified 06/16/22 12:19) (units unknown) (unknown) (unknown) (no date) (unknown) (unknown) No no 158 absent (un its unknown) (unknown) (unknown) (no date) (unknown) (unknown) No significant cramping. Nausea is manageable - using bogdan mints and (units unknown) (unknown) (unknown) (no date) (unknown) (unknown) Non-Stress Laura t performed?: No (units unknown) (unknown) (unknown) (no date) (unknown) (unknown) Notes (units unknown) (unknown) (unknown) (no date) (unknown) (unknown) Number of Maylin ng Children 0 (units unknown) (unknown) (unknown) (no date) (unknown) (unknown) Number of fetu ses:: Single (units unknown) (unknown) (unknown) (no date) (unknown) (unknown) Nutrition and weight gain counseling: special diet: discussed (units unknown) (unknown) (unknown) (no date) (unknown) (unknown) OB Office Visit (uni ts unknown) (unknown) (unknown) (no date) (unknown) (unknown) OB Visit Log (units unknown) (unknown) (unknown) (no date) (unknown) (unknown) On contr ol at conception?: No (units unknown) (unknown) (unknown) (no date) (unknown) (unknown) Other Estimate s 12/31/22 LMP (Certain) 11w 5d (units unknown) (unknown) (unknown) (no date) (unknown) (unknown) PFSH (units unknown) (unknown) (unknown) (no date) (unknown) (unknown) Pap LSIL 01/23 22, but no reflex HPV was run, no f/u done. 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 treated and cured) (units unknown) (unknown) (unknown) (no date) (unknown) (unknown) Partner histor y of genital herpes: Yes (units unknown) (unknown) (unknown) (no date) (unknown) (unknown) Partner: Willian Lopez (units unknown) (unknown) (unknown) (no date) (unknown) (unknown) Patient's age 35 years or older as of estimated date of delivery: No (units unknown) (unknown) (unknown) (no date) (unknown) (unknown) Patient: Colleen Lopez MR#: [id number] (units unknown) (unknown) (unknown) (no date) (unknown) (unknown) Client Reporting Associate: Masha (units unknown) (unknown) (unknown) (no date) (unknown) (unknown) Personal histo ry of STD: HPV (? no HPV actually run from pap) (units unknown) (unknown) (unknown) (no date) (unknown) (unknown) Personal histo ry of genital herpes: No (units unknown) (unknown) (unknown) (no date) (unknown) (unknown) Polycystic kid shannan disease (units unknown) (unknown) (unknown) (no date) (unknown) (unknown) Position Sitting (un its unknown) (unknown) (unknown) (no date) (unknown) (unknown) History (u nits unknown) (unknown) (unknown) (no date) (unknown) (unknown) type :: First (units unknown) (unknown) (unknown) (no date) (unknown) (unknown) Education ( units unknown) (unknown) (unknown) (no date) (unknown) (unknown) Initi al Assessment (units unknown) (unknown) (unknown) (no date) (unknown) (unknown) Speci fic Issues/Plans (units unknown) (unknown) (unknown) (no date) (unknown) (unknown) Testi ng: discussed (units unknown) (unknown) (unknown) (no date) (unknown) (unknown) Visit (unit s unknown) (unknown) (unknown) (no date) (unknown) (unknown) educa tion packet: Child education/plan, symptoms, (units unknown) (unknown) (unknown) (no date) (unknown) (unknown) Primary Care Provider: DOD (units unknown) (unknown) (unknown) (no date) (unknown) (unknown) Primary Ob Provider: Faith Flanagan (units unknown) (unknown) (unknown) (no date) (unknown) (unknown) Prior GBS-Infe cted child: No (units unknown) (unknown) (unknown) (no date) (unknown) (unknown) Providers (units unknown) (unknown) (unknown) (no date) (unknown) (unknown) Pulse 84 (units unknown) (unknown) (unknown) (no date) (unknown) (unknown) Pulse Source Palpation (units unknown) (unknown) (unknown) (no date) (unknown) (unknown) Rash or viral illness since last menstrual period: Yes (URI vs allergies (Covid (units unknown) (unknown) (unknown) (no date) (unknown) (unknown) Reason For Visit (un its unknown) (unknown) (unknown) (no date) (unknown) (unknown) Recent travel outside of country?: Yes ([place] only) (units unknown) (unknown) (unknown) (no date) (unknown) (unknown) Recurrent preg haven loss or a stillbirth: No (units unknown) (unknown) (unknown) (no date) (unknown) (unknown) 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), (units unknown) (unknown) (unknown) (no date) (unknown) (unknown) 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) and Reports Other (units unknown) (unknown) (unknown) (no date) (unknown) (unknown) 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) (units unknown) (unknown) (unknown) (no date) (unknown) (unknown) Safety (units unknown) (unknown) (unknown) (no date) (unknown) (unknown) Seasonal allergies ( units unknown) (unknown) (unknown) (no date) (unknown) (unknown) Signed By: (units unknown) (unknown) (unknown) (no date) (unknown) (unknown) Sister Depression (u nits unknown) (unknown) (unknown) (no date) (unknown) (unknown) Smoking Status : Former smoker (quit vaping 11/2021) (units unknown) (unknown) (unknown) (no date) (unknown) (unknown) Smoking/Tobacc o use: discussed (units unknown) (unknown) (unknown) (no date) (unknown) (unknown) Social History (unit s unknown) (unknown) (unknown) (no date) (unknown) (unknown) Status: Acute (units unknown) (unknown) (unknown) (no date) (unknown) (unknown) Support Person (s):: Willian (units unknown) (unknown) (unknown) (no date) (unknown) (unknown) Surgical Histo ry (Updated 05/05/22 @ 15:35 by Rebecca Polk RN) (units unknown) (unknown) (unknown) (no date) (unknown) (unknown) Surrogate ?: no (units unknown) (unknown) (unknown) (no date) (unknown) (unknown) Symptoms since LMP: Reports amenorrhea, nausea, fatigue, breast tenderness, (units unknown) (unknown) (unknown) (no date) (unknown) (unknown) Teratogen Expo sures since LMP/Conception: Denies prescription medications, (units unknown) (unknown) (unknown) (no date) (unknown) (unknown) Testing Education (u nits unknown) (unknown) (unknown) (no date) (unknown) (unknown) Testing educat ion completed: group B strep, Spina bifida testing and Cell Free (units unknown) (unknown) (unknown) (no date) (unknown) (unknown) This note may have been all or partially generated using voice recognition (units unknown) (unknown) (unknown) (no date) (unknown) (unknown) Tobacco + Subs tance Use (units unknown) (unknown) (unknown) (no date) (unknown) (unknown) Tobacco Status (unit s unknown) (unknown) (unknown) (no date) (unknown) (unknown) Travel, Seatbe lt use and Influenza vaccine (already had flu shot, Covid x2) (units unknown) (unknown) (unknown) (no date) (unknown) (unknown) Trimester:: 1s t Trimester (<14wks) (units unknown) (unknown) (unknown) (no date) (unknown) (unknown) Type(s) of exercise: walking (units unknown) (unknown) (unknown) (no date) (unknown) (unknown) UProtein Movem ent PreLabor FHR Fndl Ht Pres Edema Cerv Exam US/Comment Next Appt (units unknown) (unknown) (unknown) (no date) (unknown) (unknown) Ultrasound performed?: No (units unknown) (unknown) (unknown) (no date) (unknown) (unknown) Varicella/chic rodrigue pox status: immunized (units unknown) (unknown) (unknown) (no date) (unknown) (unknown) Visit Date: 06/16/22 Last Updated by: Faith Flanagan MD (units unknown) (unknown) (unknown) (no date) (unknown) (unknown) 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 , 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 (units unknown) (unknown) (unknown) (no date) (unknown) (unknown) Vitals (units unknown) (unknown) (unknown) (no date) (unknown) (unknown) Vitamins and i julio c, Diet and weight gain, Fish and mercury intake, Smoking, (units unknown) (unknown) (unknown) (no date) (unknown) (unknown) WG (units unknown) (unknown) (unknown) (no date) (unknown) (unknown) Weeks gestatio n:: 11 (units unknown) (unknown) (unknown) (no date) (unknown) (unknown) Weight 218 lb 8 oz ( units unknown) (unknown) (unknown) (no date) (unknown) (unknown) [place] teeth extracted () (units unknown) (unknown) (unknown) (no date) (unknown) (unknown) Zika virus exposure: No (units unknown) (unknown) (unknown) (no date) (unknown) (unknown) activity, X-ra y exposure, Medication use, Sauna/hot tub use, Dental care, (units unknown) (unknown) (unknown) (no date) (unknown) (unknown) alcohol intake : former (5-7 glasses of wine/week when not ) (units unknown) (unknown) (unknown) (no date) (unknown) (unknown) anyone in 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 ) (units unknown) (unknown) (unknown) (no date) (unknown) (unknown) current occupational exposures/hazards: Yes (exposure in the building, but no (units unknown) (unknown) (unknown) (no date) (unknown) (unknown) daily servings fruits/ve-4 (units unknown) (unknown) (unknown) (no date) (unknown) (unknown) described, vis it schedule reviewed, ultrasounds policy reviewed, coverage 24 (units unknown) (unknown) (unknown) (no date) (unknown) (unknown) discussed, tuberculosis exposure discussed, CMV discussed, Toxoplasmosis (units unknown) (unknown) (unknown) (no date) (unknown) (unknown) do you feel sa fe at home: Yes (units unknown) (unknown) (unknown) (no date) (unknown) (unknown) duration: 30-4 5 minutes/day (units unknown) (unknown) (unknown) (no date) (unknown) (unknown) during the pas t year weight has: increased > 10 lbs (units unknown) (unknown) (unknown) (no date) (unknown) (unknown) education leve l: college (some college) (units unknown) (unknown) (unknown) (no date) (unknown) (unknown) fibrosis. (units unknown) (unknown) (unknown) (no date) (unknown) (unknown) fire extinguis her in home: Yes (units unknown) (unknown) (unknown) (no date) (unknown) (unknown) firearms in ho me: Yes (some locked up, not all) (units unknown) (unknown) (unknown) (no date) (unknown) (unknown) frequency: 3-4 times per week (units unknown) (unknown) (unknown) (no date) (unknown) (unknown) have occurred. If there are any questions, please contact the Medical Records (units unknown) (unknown) (unknown) (no date) (unknown) (unknown) helmet use: Yes (uni ts unknown) (unknown) (unknown) (no date) (unknown) (unknown) hours a day an d participation of father in care and office visits (units unknown) (unknown) (unknown) (no date) (unknown) (unknown) household memb ers: spouse and friend(s) (units unknown) (unknown) (unknown) (no date) (unknown) (unknown) housing: house (unit s unknown) (unknown) (unknown) (no date) (unknown) (unknown) inherited gene tic or chromosomal disorder (polycystic kidneys, Marfan's) (units unknown) (unknown) (unknown) (no date) (unknown) (unknown) irritability a nd other (constipation) (units unknown) (unknown) (unknown) (no date) (unknown) (unknown) lives independently: Yes (units unknown) (unknown) (unknown) (no date) (unknown) (unknown) marital status : (units unknown) (unknown) (unknown) (no date) (unknown) (unknown) may occur. 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 Please (units unknown) (unknown) (unknown) (no date) (unknown) (unknown) pets and anima ls: Yes (units unknown) (unknown) (unknown) (no date) (unknown) (unknown) precautions, Listeriosis prevention and Rubella Immunization (units unknown) (unknown) (unknown) (no date) (unknown) (unknown) prenat.vits,ca l,min -iron-folic 1 tab PO DAILY 05/05/22 [History Confirmed (units unknown) (unknown) (unknown) (no date) (unknown) (unknown) read the note carefully and recognize, using context, where these substitutions (units unknown) (unknown) (unknown) (no date) (unknown) (unknown) seatbelt use: always (units unknown) (unknown) (unknown) (no date) (unknown) (unknown) second hand exposure: Yes (roommate vapes) (units unknown) (unknown) (unknown) (no date) (unknown) (unknown) software. Alth ough every effort is made to edit content, coordinate measuring machine operator errors (units unknown) (unknown) (unknown) (no date) (unknown) (unknown) special jeri needs: No (units unknown) (unknown) (unknown) (no date) (unknown) (unknown) substance use type: does not use (units unknown) (unknown) (unknown) (no date) (unknown) (unknown) tea, taking B6. 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 (units unknown) (unknown) (unknown) (no date) (unknown) (unknown) travel history : recent (domestic, [place]) (units unknown) (unknown) (unknown) (no date) (unknown) (unknown) water heater t emp set < 120 deg: Yes (units unknown) (unknown) (unknown) (no date) (unknown) (unknown) well-balanced diet: about half the time (units unknown) (unknown) (unknown) (no date) (unknown) (unknown) working smoke detector in home: Yes (units unknown) (unknown) Result panel 67 (unknown) (no date) (unknown) (unknown) 172 index 5403-1 (unknown) (no date) (unknown) (unknown) 172 index (unknown ) (unknown) (no date) (unknown) (unknown) Non Reactive (units unknown) (unknown) (unknown) (no date) (unknown) (unknown) Non Reactive (units unknown) [id number] Result panel 68 (unknown) (no date) (unknown) (unknown) 0 /ul (unknown ) (unknown) (no date) (unknown) (unknown) 0 /ul (unknown ) (unknown) (no date) (unknown) (unknown) 0.3 % (unknown ) (unknown) (no date) (unknown) (unknown) 0.6 % (unknown ) (unknown) (no date) (unknown) (unknown) 12.7 % (unknown ) (unknown) (no date) (unknown) (unknown) 13.7 g/dl (unknown ) (unknown) (no date) (unknown) (unknown) 1300 /ul (unknown ) (unknown) (no date) (unknown) (unknown) 18.1 % (unknown ) (unknown) (no date) (unknown) (unknown) 219 x10 3/ul (unknow n) (unknown) (no date) (unknown) (unknown) 33.0 pg (unknown ) (unknown) (no date) (unknown) (unknown) 34.7 % (unknown ) (unknown) (no date) (unknown) (unknown) 39.5 % (unknown ) (unknown) (no date) (unknown) (unknown) 4.16 x10 6/ul (unknow n) (unknown) (no date) (unknown) (unknown) 400 /ul (unknown ) (unknown) (no date) (unknown) (unknown) 5.5 % (unknown ) (unknown) (no date) (unknown) (unknown) 5500 /ul (unknown ) (unknown) (no date) (unknown) (unknown) 7.3 x10 3/ul (unknow n) (unknown) (no date) (unknown) (unknown) 75.5 % (unknown ) (unknown) (no date) (unknown) (unknown) 95.0 fl (unknown ) Result panel 69 (unknown) (no date) (unknown) (unknown) > 60 ml/min (unknown ) (unknown) (no date) (unknown) (unknown) > 60 ml/min (unknown ) (unknown) (no date) (unknown) (unknown) 0.55 mg/dl (unknown ) (unknown) (no date) (unknown) (unknown) 104 mmol/l (unknown ) (unknown) (no date) (unknown) (unknown) 134 mmol/l (unknown ) (unknown) (no date) (unknown) (unknown) 14.5 (units unknown) (unknown) (unknown) (no date) (unknown) (unknown) 21 mmol/l (unknown ) (unknown) (no date) (unknown) (unknown) 4.0 mmol/l (unknown ) (unknown) (no date) (unknown) (unknown) 8 mg/dl (unknown ) (unknown) (no date) (unknown) (unknown) 8.8 mg/dl (unknown ) (unknown) (no date) (unknown) (unknown) 89 mg/dl (unknown ) (unknown) (no date) (unknown) (unknown) 89 mg/dl (unknown ) Result panel 70 (unknown) (no date) (unknown) (unknown) 1.0 e.u./dl (unknown ) (unknown) (no date) (unknown) (unknown) 1.015 (units unknown) (unknown) (unknown) (no date) (unknown) (unknown) 7.0 (units unknown) (unknown) (unknown) (no date) (unknown) (unknown) CLEAR (units unknown) (unknown) (unknown) (no date) (unknown) (unknown) NEGATIVE (units unknown) (unknown) (unknown) (no date) (unknown) (unknown) NEGATIVE g/dl (unknow n) (unknown) (no date) (unknown) (unknown) TRACE (units unknown) (unknown) (unknown) (no date) (unknown) (unknown) YELLOW (units unknown) (unknown) (unknown) (no date) (unknown) (unknown) YELLOW (units unknown) (unknown) Result panel 71 (unknown) (no date) (unknown) (unknown) (no value) (units unknown) (unknown) (unknown) (no date) (unknown) (unknown) (+8 lb 8 oz) 110/66 (units unknown) (unknown) (unknown) (no date) (unknown) (unknown) (1) Encounter for supervision of normal first , first trimester: (units unknown) (unknown) (unknown) (no date) (unknown) (unknown) (2) 11 weeks gestation of : (units unknown) (unknown) (unknown) (no date) (unknown) (unknown) Genetic Screening/Teratolog y Counseling - Includes patient, baby's father, or (units unknown) (unknown) (unknown) (no date) (unknown) (unknown) - Encounter fo r supervision of normal first , first trimester, Z3A.11 (units unknown) (unknown) (unknown) (no date) (unknown) (unknown) -?-?-?-?-?-?-? -?-?- ?-?-? (units unknown) (unknown) (unknown) (no date) (unknown) (unknown) 06/16/22 (units unknown) (unknown) (unknown) (no date) (unknown) (unknown) 06/16/22] (units unknown) (unknown) (unknown) (no date) (unknown) (unknown) [id number] (units unknown) (unknown) (unknown) (no date) (unknown) (unknown) 12/29/22 Ultra sound #1 12w 0d (units unknown) (unknown) (unknown) (no date) (unknown) (unknown) 11 weeks gesta tion of (units unknown) (unknown) (unknown) (no date) (unknown) (unknown) 11w 5d 218 lb 8 oz ( units unknown) (unknown) (unknown) (no date) (unknown) (unknown) 12:18 (units unknown) (unknown) (unknown) (no date) (unknown) (unknown) 4wks (units unknown) (unknown) (unknown) (no date) (unknown) (unknown) Abnormal lab v alues 1st trimester: discussed (units unknown) (unknown) (unknown) (no date) (unknown) (unknown) Accompanied by : (units unknown) (unknown) (unknown) (no date) (unknown) (unknown) Acne (units unknown) (unknown) (unknown) (no date) (unknown) (unknown) 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[employer], 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 (units unknown) (unknown) (unknown) (no date) (unknown) (unknown) Add'l Plan Details ( units unknown) (unknown) (unknown) (no date) (unknown) (unknown) Age/Sex: 21 / F Date of Service: (units unknown) (unknown) (unknown) (no date) (unknown) (unknown) Allergies (units unknown) (unknown) (unknown) (no date) (unknown) (unknown) [facility] (units unknown) (unknown) (unknown) (no date) (unknown) (unknown) [place] [address] (units unknown) (unknown) (unknown) (no date) (unknown) (unknown) Aneuploidy Screening Offered: Declined (unsure, wants to discuss w/ ) (units unknown) (unknown) (unknown) (no date) (unknown) (unknown) Anticipated co urse of care: discussed (units unknown) (unknown) (unknown) (no date) (unknown) (unknown) Anxiety (units unknown) (unknown) (unknown) (no date) (unknown) (unknown) Arthritis (units unknown) (unknown) (unknown) (no date) (unknown) (unknown) Assessment and Plan (units unknown) (unknown) (unknown) (no date) (unknown) (unknown) Attending Dr: Faith Flanagan MD (units unknown) (unknown) (unknown) (no date) (unknown) (unknown) [employer] [facility]. No exposures for over a month. Will be transfering (units unknown) (unknown) (unknown) (no date) (unknown) (unknown) BMI 34.2 (units unknown) (unknown) (unknown) (no date) (unknown) (unknown) BP 110/66 (units unknown) (unknown) (unknown) (no date) (unknown) (unknown) Plan/Preferences (units unknown) (unknown) (unknown) (no date) (unknown) (unknown) Planning (unit s unknown) (unknown) (unknown) (no date) (unknown) (unknown) Blood Pressure Location Lt brachial (units unknown) (unknown) (unknown) (no date) (unknown) (unknown) Blood transfusions?: yes (Never had but would accept) (units unknown) (unknown) (unknown) (no date) (unknown) (unknown) Caffeine use, Exercise and activity, work/environmental/ hazards, Sexual (units unknown) (unknown) (unknown) (no date) (unknown) (unknown) Childbirth Cla sses: discussed (units unknown) (unknown) (unknown) (no date) (unknown) (unknown) Current Estima te 12/31/22 Manual 11w 5d Final MOMO (units unknown) (unknown) (unknown) (no date) (unknown) (unknown) Current Pregna ncy History (units unknown) (unknown) (unknown) (no date) (unknown) (unknown) DNA (units unknown) (unknown) (unknown) (no date) (unknown) (unknown) : 1 Acct:[id number] (units unknown) (unknown) (unknown) (no date) (unknown) (unknown) Date of positi ve home test: 04/19/22 (units unknown) (unknown) (unknown) (no date) (unknown) (unknown) Date (units unknown) (unknown) (unknown) (no date) (unknown) (unknown) Denies over th e counter medications, Denies alcohol, Denies illicit drugs and (units unknown) (unknown) (unknown) (no date) (unknown) (unknown) Depression: discussed (units unknown) (unknown) (unknown) (no date) (unknown) (unknown) Dept at . (units unknown) (unknown) (unknown) (no date) (unknown) (unknown) Diet and Exercise (u nits unknown) (unknown) (unknown) (no date) (unknown) (unknown) Documented By: Faith Flanagan MD 06/16/22 [id number] (units unknown) (unknown) (unknown) (no date) (unknown) (unknown) Draft (units unknown) (unknown) (unknown) (no date) (unknown) (unknown) MOMO Calculator (unit s unknown) (unknown) (unknown) (no date) (unknown) (unknown) EGA Weight BP UGlucose (units unknown) (unknown) (unknown) (no date) (unknown) (unknown) Encounter for supervision of normal first , first trimester, Z3A.11 (units unknown) (unknown) (unknown) (no date) (unknown) (unknown) Estimated Deli very Date Method Current (units unknown) (unknown) (unknown) (no date) (unknown) (unknown) FOB sister d as infant from hypoplastic left heart syndrome. Cousin cystic (units unknown) (unknown) (unknown) (no date) (unknown) (unknown) Family History (Updated 05/05/22 @ 15:59 by Rebecca Polk RN) (units unknown) (unknown) (unknown) (no date) (unknown) (unknown) Family/Other Marfans syndrome (units unknown) (unknown) (unknown) (no date) (unknown) (unknown) Family/Other Marfans syndrome (units unknown) (unknown) (unknown) (no date) (unknown) (unknown) Family/Other Polycystic kidney disease (units unknown) (unknown) (unknown) (no date) (unknown) (unknown) Father of Baby : same (units unknown) (unknown) (unknown) (no date) (unknown) (unknown) First Trimeste r Education Checklist (units unknown) (unknown) (unknown) (no date) (unknown) (unknown) Genetic Screen ing + Counseling (units unknown) (unknown) (unknown) (no date) (unknown) (unknown) Genetic Screening (u nits unknown) (unknown) (unknown) (no date) (unknown) (unknown) Genetic polycy stic kidney disease; family Hx Marfan Syndrome (pt has no known (units unknown) (unknown) (unknown) (no date) (unknown) (unknown) Grandfather Marfans syndrome (units unknown) (unknown) (unknown) (no date) (unknown) (unknown) Grandfather Me ntal health problem (units unknown) (unknown) (unknown) (no date) (unknown) (unknown) Grandmother Lymphoma (units unknown) (unknown) (unknown) (no date) (unknown) (unknown) 1 Mult iple births 0 (units unknown) (unknown) (unknown) (no date) (unknown) (unknown) HIV risk evaluation: low risk (units unknown) (unknown) (unknown) (no date) (unknown) (unknown) Health Center Education (units unknown) (unknown) (unknown) (no date) (unknown) (unknown) Health center information: nature of practice discussed, personnel (units unknown) (unknown) (unknown) (no date) (unknown) (unknown) Height 5 ft 7 in (un its unknown) (unknown) (unknown) (no date) (unknown) (unknown) Hepatitis C ri sk evaluation: low risk (units unknown) (unknown) (unknown) (no date) (unknown) (unknown) History of Hepatitis B: No (units unknown) (unknown) (unknown) (no date) (unknown) (unknown) History of Hepatitis C: No (units unknown) (unknown) (unknown) (no date) (unknown) (unknown) History of rem oval of skin mole (units unknown) (unknown) (unknown) (no date) (unknown) (unknown) Hospital: [facility] (units unknown) (unknown) (unknown) (no date) (unknown) (unknown) 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) (units unknown) (unknown) (unknown) (no date) (unknown) (unknown) Hx # Pregnancies 0 Elective abortions 0 (units unknown) (unknown) (unknown) (no date) (unknown) (unknown) Hx # Term Pregnancies 0 Ectopic pregnancies 0 (units unknown) (unknown) (unknown) (no date) (unknown) (unknown) will be adopted?: no (units unknown) (unknown) (unknown) (no date) (unknown) (unknown) Infection History (u nits unknown) (unknown) (unknown) (no date) (unknown) (unknown) Infectious Dis ease Education (units unknown) (unknown) (unknown) (no date) (unknown) (unknown) Infectious dis ease exposure: chicken pox immunity discussed, hepatitis risk (units unknown) (unknown) (unknown) (no date) (unknown) (unknown) Initial Weight : 210 lb (units unknown) (unknown) (unknown) (no date) (unknown) (unknown) Initials (units unknown) (unknown) (unknown) (no date) (unknown) (unknown) Intake Clinica l Staff (units unknown) (unknown) (unknown) (no date) (unknown) (unknown) Intake perform ed by: Shaniqua Landry (units unknown) (unknown) (unknown) (no date) (unknown) (unknown) Intake (units unknown) (unknown) (unknown) (no date) (unknown) (unknown) ROSALIE (units unknown) (unknown) (unknown) (no date) (unknown) (unknown) LGSIL on Pap s mear of cervix (units unknown) (unknown) (unknown) (no date) (unknown) (unknown) Live with some one with TB or exposed to TB: No (units unknown) (unknown) (unknown) (no date) (unknown) (unknown) Loc: [facility] (units unknown) (unknown) (unknown) (no date) (unknown) (unknown) Marital status : (units unknown) (unknown) (unknown) (no date) (unknown) (unknown) Medical Histor y (Updated 06/16/22 @ 12:31 by Shaniqua Landry MA) (units unknown) (unknown) (unknown) (no date) (unknown) (unknown) Medications (units unknown) (unknown) (unknown) (no date) (unknown) (unknown) Miscellaneous to [facility] Today Q61.3 - Polycystic kidney, unspecified, Z34.01 (units unknown) (unknown) (unknown) (no date) (unknown) (unknown) Mother Polycys tic kidney disease (units unknown) (unknown) (unknown) (no date) (unknown) (unknown) No Known Drug Allergies Allergy (Unverified 06/16/22 12:19) (units unknown) (unknown) (unknown) (no date) (unknown) (unknown) No no 158 absent (un its unknown) (unknown) (unknown) (no date) (unknown) (unknown) No significant cramping. Nausea is manageable - using bogdan mints and (units unknown) (unknown) (unknown) (no date) (unknown) (unknown) Non-Stress Laura t performed?: No (units unknown) (unknown) (unknown) (no date) (unknown) (unknown) Notes (units unknown) (unknown) (unknown) (no date) (unknown) (unknown) Number of Maylin ng Children 0 (units unknown) (unknown) (unknown) (no date) (unknown) (unknown) Number of fetu ses:: Single (units unknown) (unknown) (unknown) (no date) (unknown) (unknown) Nutrition and weight gain counseling: special diet: discussed (units unknown) (unknown) (unknown) (no date) (unknown) (unknown) OB Office Visit (uni ts unknown) (unknown) (unknown) (no date) (unknown) (unknown) OB Visit Log (units unknown) (unknown) (unknown) (no date) (unknown) (unknown) On contr ol at conception?: No (units unknown) (unknown) (unknown) (no date) (unknown) (unknown) Orders (units unknown) (unknown) (unknown) (no date) (unknown) (unknown) Orders: (units unknown) (unknown) (unknown) (no date) (unknown) (unknown) Other Estimate s 12/31/22 LMP (Certain) 11w 5d (units unknown) (unknown) (unknown) (no date) (unknown) (unknown) PFSH (units unknown) (unknown) (unknown) (no date) (unknown) (unknown) Pap LSIL 01/23 22, but no reflex HPV was run, no f/u done. 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 treated and cured) (units unknown) (unknown) (unknown) (no date) (unknown) (unknown) Partner histor y of genital herpes: Yes (units unknown) (unknown) (unknown) (no date) (unknown) (unknown) Partner: Willian Lopez (units unknown) (unknown) (unknown) (no date) (unknown) (unknown) Patient's age 35 years or older as of estimated date of delivery: No (units unknown) (unknown) (unknown) (no date) (unknown) (unknown) Patient: Colleen Lopez MR#: [id number] (units unknown) (unknown) (unknown) (no date) (unknown) (unknown) Client Reporting Associate: Masha (units unknown) (unknown) (unknown) (no date) (unknown) (unknown) Personal histo ry of STD: HPV (? no HPV actually run from pap) (units unknown) (unknown) (unknown) (no date) (unknown) (unknown) Personal histo ry of genital herpes: No (units unknown) (unknown) (unknown) (no date) (unknown) (unknown) Polycystic kid shannan disease (units unknown) (unknown) (unknown) (no date) (unknown) (unknown) Position Sitting (un its unknown) (unknown) (unknown) (no date) (unknown) (unknown) History (u nits unknown) (unknown) (unknown) (no date) (unknown) (unknown) type :: First (units unknown) (unknown) (unknown) (no date) (unknown) (unknown) Education ( units unknown) (unknown) (unknown) (no date) (unknown) (unknown) Initi al Assessment (units unknown) (unknown) (unknown) (no date) (unknown) (unknown) Speci fic Issues/Plans (units unknown) (unknown) (unknown) (no date) (unknown) (unknown) Testi ng: discussed (units unknown) (unknown) (unknown) (no date) (unknown) (unknown) Visit (unit s unknown) (unknown) (unknown) (no date) (unknown) (unknown) educa tion packet: Child education/plan, symptoms, (units unknown) (unknown) (unknown) (no date) (unknown) (unknown) Primary Care Provider: KELLEN (units unknown) (unknown) (unknown) (no date) (unknown) (unknown) Primary Ob Provider: Faith Flanagan (units unknown) (unknown) (unknown) (no date) (unknown) (unknown) Prior GBS-Infe cted child: No (units unknown) (unknown) (unknown) (no date) (unknown) (unknown) Providers (units unknown) (unknown) (unknown) (no date) (unknown) (unknown) Pulse 84 (units unknown) (unknown) (unknown) (no date) (unknown) (unknown) Pulse Source Palpation (units unknown) (unknown) (unknown) (no date) (unknown) (unknown) Rash or viral illness since last menstrual period: Yes (URI vs allergies (Covid (units unknown) (unknown) (unknown) (no date) (unknown) (unknown) Reason For Visit (un its unknown) (unknown) (unknown) (no date) (unknown) (unknown) Recent travel outside of country?: Yes ([place] only) (units unknown) (unknown) (unknown) (no date) (unknown) (unknown) Recurrent preg haven loss or a stillbirth: No (units unknown) (unknown) (unknown) (no date) (unknown) (unknown) Referral Maternal/ Medicine Q61.3 - Polycystic kidney, unspecified, Z34.01 (units unknown) (unknown) (unknown) (no date) (unknown) (unknown) Referrals (units unknown) (unknown) (unknown) (no date) (unknown) (unknown) 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), (units unknown) (unknown) (unknown) (no date) (unknown) (unknown) 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) and Reports Other (units unknown) (unknown) (unknown) (no date) (unknown) (unknown) 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) (units unknown) (unknown) (unknown) (no date) (unknown) (unknown) Safety (units unknown) (unknown) (unknown) (no date) (unknown) (unknown) Seasonal allergies ( units unknown) (unknown) (unknown) (no date) (unknown) (unknown) Signed By: (units unknown) (unknown) (unknown) (no date) (unknown) (unknown) Sister Depression (u nits unknown) (unknown) (unknown) (no date) (unknown) (unknown) Smoking Status : Former smoker (quit vaping 11/2021) (units unknown) (unknown) (unknown) (no date) (unknown) (unknown) Smoking/Tobacc o use: discussed (units unknown) (unknown) (unknown) (no date) (unknown) (unknown) Social History (unit s unknown) (unknown) (unknown) (no date) (unknown) (unknown) Status: Acute (units unknown) (unknown) (unknown) (no date) (unknown) (unknown) Support Person (s):: Willian (units unknown) (unknown) (unknown) (no date) (unknown) (unknown) Surgical Histo ry (Updated 05/05/22 @ 15:35 by Rebecca Polk RN) (units unknown) (unknown) (unknown) (no date) (unknown) (unknown) Surrogate ?: no (units unknown) (unknown) (unknown) (no date) (unknown) (unknown) Symptoms since LMP: Reports amenorrhea, nausea, fatigue, breast tenderness, (units unknown) (unknown) (unknown) (no date) (unknown) (unknown) Teratogen Expo sures since LMP/Conception: Denies prescription medications, (units unknown) (unknown) (unknown) (no date) (unknown) (unknown) Testing Education (u nits unknown) (unknown) (unknown) (no date) (unknown) (unknown) Testing educat ion completed: group B strep, Spina bifida testing and Cell Free (units unknown) (unknown) (unknown) (no date) (unknown) (unknown) This note may have been all or partially generated using voice recognition (units unknown) (unknown) (unknown) (no date) (unknown) (unknown) Tobacco + Subs tance Use (units unknown) (unknown) (unknown) (no date) (unknown) (unknown) Tobacco Status (unit s unknown) (unknown) (unknown) (no date) (unknown) (unknown) Travel, Seatbe lt use and Influenza vaccine (already had flu shot, Covid x2) (units unknown) (unknown) (unknown) (no date) (unknown) (unknown) Trimester:: 1s t Trimester (<14wks) (units unknown) (unknown) (unknown) (no date) (unknown) (unknown) Type(s) of exercise: walking (units unknown) (unknown) (unknown) (no date) (unknown) (unknown) UProtein Movem ent PreLabor FHR Fndl Ht Pres Edema Cerv Exam US/Comment Next Appt (units unknown) (unknown) (unknown) (no date) (unknown) (unknown) Ultrasound performed?: No (units unknown) (unknown) (unknown) (no date) (unknown) (unknown) Varicella/chic rodrigue pox status: immunized (units unknown) (unknown) (unknown) (no date) (unknown) (unknown) Visit Date: 06/16/22 Last Updated by: Faith Flanagan MD (units unknown) (unknown) (unknown) (no date) (unknown) (unknown) 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 , 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 (units unknown) (unknown) (unknown) (no date) (unknown) (unknown) Vitals (units unknown) (unknown) (unknown) (no date) (unknown) (unknown) Vitamins and i julio c, Diet and weight gain, Fish and mercury intake, Smoking, (units unknown) (unknown) (unknown) (no date) (unknown) (unknown) WG (units unknown) (unknown) (unknown) (no date) (unknown) (unknown) Weeks gestatio n:: 11 (units unknown) (unknown) (unknown) (no date) (unknown) (unknown) Weight 218 lb 8 oz ( units unknown) (unknown) (unknown) (no date) (unknown) (unknown) [place] teeth extracted () (units unknown) (unknown) (unknown) (no date) (unknown) (unknown) Zika virus exposure: No (units unknown) (unknown) (unknown) (no date) (unknown) (unknown) activity, X-ra y exposure, Medication use, Sauna/hot tub use, Dental care, (units unknown) (unknown) (unknown) (no date) (unknown) (unknown) alcohol intake : former (5-7 glasses of wine/week when not ) (units unknown) (unknown) (unknown) (no date) (unknown) (unknown) anyone in [facility] family with: (units unknown) (unknown) (unknown) (no date) (unknown) (unknown) at PP (units unknown) (unknown) (unknown) (no date) (unknown) (unknown) caffeine: Yes (<100mg/day) (units unknown) (unknown) (unknown) (no date) (unknown) (unknown) carbon monox detector in home: Yes (units unknown) (unknown) (unknown) (no date) (unknown) (unknown) caregiver/supp ort person: No (units unknown) (unknown) (unknown) (no date) (unknown) (unknown) connective tis norma d/o) (units unknown) (unknown) (unknown) (no date) (unknown) (unknown) 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 while ) (units unknown) (unknown) (unknown) (no date) (unknown) (unknown) current occupational exposures/hazards: Yes (exposure in the building, but no (units unknown) (unknown) (unknown) (no date) (unknown) (unknown) daily servings fruits/ve-4 (units unknown) (unknown) (unknown) (no date) (unknown) (unknown) described, vis it schedule reviewed, ultrasounds policy reviewed, coverage 24 (units unknown) (unknown) (unknown) (no date) (unknown) (unknown) discussed, tuberculosis exposure discussed, CMV discussed, Toxoplasmosis (units unknown) (unknown) (unknown) (no date) (unknown) (unknown) do you feel sa fe at home: Yes (units unknown) (unknown) (unknown) (no date) (unknown) (unknown) duration: 30-4 5 minutes/day (units unknown) (unknown) (unknown) (no date) (unknown) (unknown) during the pas t year weight has: increased > 10 lbs (units unknown) (unknown) (unknown) (no date) (unknown) (unknown) education leve l: college (some college) (units unknown) (unknown) (unknown) (no date) (unknown) (unknown) fibrosis. (units unknown) (unknown) (unknown) (no date) (unknown) (unknown) fire extinguis her in home: Yes (units unknown) (unknown) (unknown) (no date) (unknown) (unknown) firearms in ho me: Yes (some locked up, not all) (units unknown) (unknown) (unknown) (no date) (unknown) (unknown) frequency: 3-4 times per week (units unknown) (unknown) (unknown) (no date) (unknown) (unknown) have occurred. If there are any questions, please contact the Medical Records (units unknown) (unknown) (unknown) (no date) (unknown) (unknown) helmet use: Yes (uni ts unknown) (unknown) (unknown) (no date) (unknown) (unknown) hours a day an d participation of father in care and office visits (units unknown) (unknown) (unknown) (no date) (unknown) (unknown) household memb ers: spouse and friend(s) (units unknown) (unknown) (unknown) (no date) (unknown) (unknown) housing: house (unit s unknown) (unknown) (unknown) (no date) (unknown) (unknown) inherited gene tic or chromosomal disorder (polycystic kidneys, Marfan's) (units unknown) (unknown) (unknown) (no date) (unknown) (unknown) irritability a nd other (constipation) (units unknown) (unknown) (unknown) (no date) (unknown) (unknown) lives independently: Yes (units unknown) (unknown) (unknown) (no date) (unknown) (unknown) marital status : (units unknown) (unknown) (unknown) (no date) (unknown) (unknown) may occur. 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 Please (units unknown) (unknown) (unknown) (no date) (unknown) (unknown) pets and anima ls: Yes (units unknown) (unknown) (unknown) (no date) (unknown) (unknown) precautions, Listeriosis prevention and Rubella Immunization (units unknown) (unknown) (unknown) (no date) (unknown) (unknown) prenat.vits,ca l,min -iron-folic 1 tab PO DAILY 05/05/22 [History Confirmed (units unknown) (unknown) (unknown) (no date) (unknown) (unknown) read the note carefully and recognize, using context, where these substitutions (units unknown) (unknown) (unknown) (no date) (unknown) (unknown) seatbelt use: always (units unknown) (unknown) (unknown) (no date) (unknown) (unknown) second hand exposure: Yes (roommate vapes) (units unknown) (unknown) (unknown) (no date) (unknown) (unknown) software. Alth ough every effort is made to edit content, coordinate measuring machine operator errors (units unknown) (unknown) (unknown) (no date) (unknown) (unknown) special jeri needs: No (units unknown) (unknown) (unknown) (no date) (unknown) (unknown) substance use type: does not use (units unknown) (unknown) (unknown) (no date) (unknown) (unknown) tea, taking B6. 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 (units unknown) (unknown) (unknown) (no date) (unknown) (unknown) travel history : recent (domestic, [place]) (units unknown) (unknown) (unknown) (no date) (unknown) (unknown) water heater t emp set < 120 deg: Yes (units unknown) (unknown) (unknown) (no date) (unknown) (unknown) well-balanced diet: about half the time (units unknown) (unknown) (unknown) (no date) (unknown) (unknown) working smoke detector in home: Yes (units unknown) (unknown) Result panel 72 (unknown) (no date) (unknown) (unknown) (no value) (units unknown) (unknown) (unknown) (no date) (unknown) (unknown) (+8 lb 8 oz) 110/66 (units unknown) (unknown) (unknown) (no date) (unknown) (unknown) (1) Encounter for supervision of normal first , first trimester: (units unknown) (unknown) (unknown) (no date) (unknown) (unknown) (2) 11 weeks gestation of : (units unknown) (unknown) (unknown) (no date) (unknown) (unknown) Genetic Screening/Teratolog y Counseling - Includes patient, baby's father, or (units unknown) (unknown) (unknown) (no date) (unknown) (unknown) - Encounter fo r supervision of normal first , first trimester, Z3A.11 (units unknown) (unknown) (unknown) (no date) (unknown) (unknown) -?-?-?-?-?-?-? -?-?- ?-?-? (units unknown) (unknown) (unknown) (no date) (unknown) (unknown) 06/16/22 1631 (units unknown) (unknown) (unknown) (no date) (unknown) (unknown) 06/16/22 (units unknown) (unknown) (unknown) (no date) (unknown) (unknown) 06/16/22] (units unknown) (unknown) (unknown) (no date) (unknown) (unknown) [id number] (units unknown) (unknown) (unknown) (no date) (unknown) (unknown) 12/29/22 Ultra sound #1 12w 0d (units unknown) (unknown) (unknown) (no date) (unknown) (unknown) 11 weeks gesta tion of (units unknown) (unknown) (unknown) (no date) (unknown) (unknown) 11w 5d 218 lb 8 oz ( units unknown) (unknown) (unknown) (no date) (unknown) (unknown) 12:18 (units unknown) (unknown) (unknown) (no date) (unknown) (unknown) 4wks (units unknown) (unknown) (unknown) (no date) (unknown) (unknown) Abnormal lab v alues 1st trimester: discussed (units unknown) (unknown) (unknown) (no date) (unknown) (unknown) Accompanied by : (units unknown) (unknown) (unknown) (no date) (unknown) (unknown) Acne (units unknown) (unknown) (unknown) (no date) (unknown) (unknown) Add'l Plan Details ( units unknown) (unknown) (unknown) (no date) (unknown) (unknown) Age/Sex: 21 / F Date of Service: (units unknown) (unknown) (unknown) (no date) (unknown) (unknown) Allergies (units unknown) (unknown) (unknown) (no date) (unknown) (unknown) Chandni Dooley ly Medicine (units unknown) (unknown) (unknown) (no date) (unknown) (unknown) FARIHA Tariq [id number] (units unknown) (unknown) (unknown) (no date) (unknown) (unknown) Aneuploidy Screening Offered: Declined (unsure, wants to discuss w/ ) (units unknown) (unknown) (unknown) (no date) (unknown) (unknown) Anticipated co urse of care: discussed (units unknown) (unknown) (unknown) (no date) (unknown) (unknown) Anxiety (units unknown) (unknown) (unknown) (no date) (unknown) (unknown) Arthritis (units unknown) (unknown) (unknown) (no date) (unknown) (unknown) Assessment and Plan (units unknown) (unknown) (unknown) (no date) (unknown) (unknown) Attending Dr: Faith Flanagan MD (units unknown) (unknown) (unknown) (no date) (unknown) (unknown) BMI 34.2 (units unknown) (unknown) (unknown) (no date) (unknown) (unknown) BP 110/66 (units unknown) (unknown) (unknown) (no date) (unknown) (unknown) Plan/Preferences (units unknown) (unknown) (unknown) (no date) (unknown) (unknown) Planning (unit s unknown) (unknown) (unknown) (no date) (unknown) (unknown) Blood Pressure Location Lt brachial (units unknown) (unknown) (unknown) (no date) (unknown) (unknown) Blood transfusions?: yes (Never had but would accept) (units unknown) (unknown) (unknown) (no date) (unknown) (unknown) Caffeine use, Exercise and activity, work/environmental/ hazards, Sexual (units unknown) (unknown) (unknown) (no date) (unknown) (unknown) Childbirth Cla sses: discussed (units unknown) (unknown) (unknown) (no date) (unknown) (unknown) Current Estima te 12/31/22 Manual 11w 5d Final MOMO (units unknown) (unknown) (unknown) (no date) (unknown) (unknown) Current Pregna ncy History (units unknown) (unknown) (unknown) (no date) (unknown) (unknown) DNA (units unknown) (unknown) (unknown) (no date) (unknown) (unknown) : 1 Acct:[id number] (units unknown) (unknown) (unknown) (no date) (unknown) (unknown) Date of positi ve home test: 04/19/22 (units unknown) (unknown) (unknown) (no date) (unknown) (unknown) Date (units unknown) (unknown) (unknown) (no date) (unknown) (unknown) Dating u/s concordant with LMP. Keep MOMO 12/31/22. (units unknown) (unknown) (unknown) (no date) (unknown) (unknown) Denies over th e counter medications, Denies alcohol, Denies illicit drugs and (units unknown) (unknown) (unknown) (no date) (unknown) (unknown) Depression: discussed (units unknown) (unknown) (unknown) (no date) (unknown) (unknown) Dept at . (units unknown) (unknown) (unknown) (no date) (unknown) (unknown) Desires geneti c testing. Will see if cfDNA can be scheduled. Discussed (units unknown) (unknown) (unknown) (no date) (unknown) (unknown) Diet and Exercise (u nits unknown) (unknown) (unknown) (no date) (unknown) (unknown) Documented By: Faith Flanagan MD 06/16/22 0920 (units unknown) (unknown) (unknown) (no date) (unknown) (unknown) MOMO Calculator (unit s unknown) (unknown) (unknown) (no date) (unknown) (unknown) EGA Weight BP UGlucose (units unknown) (unknown) (unknown) (no date) (unknown) (unknown) Encounter for supervision of normal first , first trimester, Z3A.11 (units unknown) (unknown) (unknown) (no date) (unknown) (unknown) Estimated Deli very Date Method Current (units unknown) (unknown) (unknown) (no date) (unknown) (unknown) Family History (Updated 05/05/22 @ 15:59 by Rebecca Polk RN) (units unknown) (unknown) (unknown) (no date) (unknown) (unknown) Family/Other Marfans syndrome (units unknown) (unknown) (unknown) (no date) (unknown) (unknown) Family/Other Marfans syndrome (units unknown) (unknown) (unknown) (no date) (unknown) (unknown) Family/Other Polycystic kidney disease (units unknown) (unknown) (unknown) (no date) (unknown) (unknown) Father of Baby : same (units unknown) (unknown) (unknown) (no date) (unknown) (unknown) [facility] (units unknown) (unknown) (unknown) (no date) (unknown) (unknown) Genetic Screen ing + Counseling (units unknown) (unknown) (unknown) (no date) (unknown) (unknown) Genetic Screening (u nits unknown) (unknown) (unknown) (no date) (unknown) (unknown) Genetic polycy stic kidney disease; family Hx Marfan Syndrome (pt has no known (units unknown) (unknown) (unknown) (no date) (unknown) (unknown) Grandfather Marfans syndrome (units unknown) (unknown) (unknown) (no date) (unknown) (unknown) Grandfather Me ntal health problem (units unknown) (unknown) (unknown) (no date) (unknown) (unknown) Grandmother Lymphoma (units unknown) (unknown) (unknown) (no date) (unknown) (unknown) 1 Mult iple births 0 (units unknown) (unknown) (unknown) (no date) (unknown) (unknown) HIV risk evaluation: low risk (units unknown) (unknown) (unknown) (no date) (unknown) (unknown) Health Center Education (units unknown) (unknown) (unknown) (no date) (unknown) (unknown) Health center information: nature of practice discussed, personnel (units unknown) (unknown) (unknown) (no date) (unknown) (unknown) Height 5 ft 7 in (un its unknown) (unknown) (unknown) (no date) (unknown) (unknown) Hepatitis C ri sk evaluation: low risk (units unknown) (unknown) (unknown) (no date) (unknown) (unknown) History of Hepatitis B: No (units unknown) (unknown) (unknown) (no date) (unknown) (unknown) History of Hepatitis C: No (units unknown) (unknown) (unknown) (no date) (unknown) (unknown) History of rem oval of skin mole (units unknown) (unknown) (unknown) (no date) (unknown) (unknown) Hospital: [facility] (units unknown) (unknown) (unknown) (no date) (unknown) (unknown) Hx # Pregnancies 0 Elective abortions 0 (units unknown) (unknown) (unknown) (no date) (unknown) (unknown) Hx # Term Pregnancies 0 Ectopic pregnancies 0 (units unknown) (unknown) (unknown) (no date) (unknown) (unknown) will be adopted?: no (units unknown) (unknown) (unknown) (no date) (unknown) (unknown) Infection History (u nits unknown) (unknown) (unknown) (no date) (unknown) (unknown) Infectious Dis ease Education (units unknown) (unknown) (unknown) (no date) (unknown) (unknown) Infectious dis ease exposure: chicken pox immunity discussed, hepatitis risk (units unknown) (unknown) (unknown) (no date) (unknown) (unknown) Initial Weight : 210 lb (units unknown) (unknown) (unknown) (no date) (unknown) (unknown) Initials (units unknown) (unknown) (unknown) (no date) (unknown) (unknown) Intake Clinica l Staff (units unknown) (unknown) (unknown) (no date) (unknown) (unknown) Intake perform ed by: Shaniqua Landry (units unknown) (unknown) (unknown) (no date) (unknown) (unknown) Intake (units unknown) (unknown) (unknown) (no date) (unknown) (unknown) ROSALIE (units unknown) (unknown) (unknown) (no date) (unknown) (unknown) LGSIL on Pap s mear of cervix (units unknown) (unknown) (unknown) (no date) (unknown) (unknown) Likely needs f etal echo. (units unknown) (unknown) (unknown) (no date) (unknown) (unknown) Live with some one with TB or exposed to TB: No (units unknown) (unknown) (unknown) (no date) (unknown) (unknown) Loc: [facility] (units unknown) (unknown) (unknown) (no date) (unknown) (unknown) Marital status : (units unknown) (unknown) (unknown) (no date) (unknown) (unknown) Medical Histor y (Updated 06/16/22 @ 12:31 by Shaniqua Landry MA) (units unknown) (unknown) (unknown) (no date) (unknown) (unknown) Medications (units unknown) (unknown) (unknown) (no date) (unknown) (unknown) Miscellaneous to [facility] Today Q61.3 - Polycystic kidney, unspecified, Z34.01 (units unknown) (unknown) (unknown) (no date) (unknown) (unknown) Mother Polycys tic kidney disease (units unknown) (unknown) (unknown) (no date) (unknown) (unknown) No Known Drug Allergies Allergy (Unverified 06/16/22 12:19) (units unknown) (unknown) (unknown) (no date) (unknown) (unknown) No no 158 absent (un its unknown) (unknown) (unknown) (no date) (unknown) (unknown) No significant cramping. Nausea is manageable - using bogdan mints and (units unknown) (unknown) (unknown) (no date) (unknown) (unknown) Non-Stress Laura t performed?: No (units unknown) (unknown) (unknown) (no date) (unknown) (unknown) Notes (units unknown) (unknown) (unknown) (no date) (unknown) (unknown) Number of Maylin ng Children 0 (units unknown) (unknown) (unknown) (no date) (unknown) (unknown) Number of fetu ses:: Single (units unknown) (unknown) (unknown) (no date) (unknown) (unknown) Nutrition and weight gain counseling: special diet: discussed (units unknown) (unknown) (unknown) (no date) (unknown) (unknown) OB Office Visit (uni ts unknown) (unknown) (unknown) (no date) (unknown) (unknown) OB Visit Log (units unknown) (unknown) (unknown) (no date) (unknown) (unknown) On contr ol at conception?: No (units unknown) (unknown) (unknown) (no date) (unknown) (unknown) Orders (units unknown) (unknown) (unknown) (no date) (unknown) (unknown) Orders: (units unknown) (unknown) (unknown) (no date) (unknown) (unknown) Other Estimate s 12/31/22 LMP (Certain) 11w 5d (units unknown) (unknown) (unknown) (no date) (unknown) (unknown) PFSH (units unknown) (unknown) (unknown) (no date) (unknown) (unknown) Pap LSIL 01/23 22, but no reflex HPV was run, no f/u done. 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 treated and cured) (units unknown) (unknown) (unknown) (no date) (unknown) (unknown) Partner histor y of genital herpes: Yes (units unknown) (unknown) (unknown) (no date) (unknown) (unknown) Partner: Willian Lopez (units unknown) (unknown) (unknown) (no date) (unknown) (unknown) Patient's age 35 years or older as of estimated date of delivery: No (units unknown) (unknown) (unknown) (no date) (unknown) (unknown) Patient: Colleen Lopez MR#: [id number] (units unknown) (unknown) (unknown) (no date) (unknown) (unknown) Client Reporting Associate: Masha (units unknown) (unknown) (unknown) (no date) (unknown) (unknown) Personal histo ry of STD: HPV (? no HPV actually run from pap) (units unknown) (unknown) (unknown) (no date) (unknown) (unknown) Personal histo ry of genital herpes: No (units unknown) (unknown) (unknown) (no date) (unknown) (unknown) Polycystic kid shannan disease (units unknown) (unknown) (unknown) (no date) (unknown) (unknown) Position Sitting (un its unknown) (unknown) (unknown) (no date) (unknown) (unknown) History (u nits unknown) (unknown) (unknown) (no date) (unknown) (unknown) type :: First (units unknown) (unknown) (unknown) (no date) (unknown) (unknown) Education ( units unknown) (unknown) (unknown) (no date) (unknown) (unknown) Initi al Assessment (units unknown) (unknown) (unknown) (no date) (unknown) (unknown) Speci fic Issues/Plans (units unknown) (unknown) (unknown) (no date) (unknown) (unknown) Testi ng: discussed (units unknown) (unknown) (unknown) (no date) (unknown) (unknown) Visit (unit s unknown) (unknown) (unknown) (no date) (unknown) (unknown) educa tion packet: Child education/plan, symptoms, (units unknown) (unknown) (unknown) (no date) (unknown) (unknown) Primary Care Provider: DOD (units unknown) (unknown) (unknown) (no date) (unknown) (unknown) Primary Ob Provider: Faith Flanagan (units unknown) (unknown) (unknown) (no date) (unknown) (unknown) Prior GBS-Infe cted child: No (units unknown) (unknown) (unknown) (no date) (unknown) (unknown) Providers (units unknown) (unknown) (unknown) (no date) (unknown) (unknown) 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 No exposures for over a month. (units unknown) (unknown) (unknown) (no date) (unknown) (unknown) Pt with polycy stic kidney disease. No issues with kidney function. FOB's (units unknown) (unknown) (unknown) (no date) (unknown) (unknown) Pulse 84 (units unknown) (unknown) (unknown) (no date) (unknown) (unknown) Pulse Source Palpation (units unknown) (unknown) (unknown) (no date) (unknown) (unknown) Rash or viral illness since last menstrual period: Yes (URI vs allergies (Covid (units unknown) (unknown) (unknown) (no date) (unknown) (unknown) Reason For Visit (un its unknown) (unknown) (unknown) (no date) (unknown) (unknown) Recent travel outside of country?: Yes ([place] only) (units unknown) (unknown) (unknown) (no date) (unknown) (unknown) Recurrent preg haven loss or a stillbirth: No (units unknown) (unknown) (unknown) (no date) (unknown) (unknown) Referral Maternal/ Medicine Q61.3 - Polycystic kidney, unspecified, Z34.01 (units unknown) (unknown) (unknown) (no date) (unknown) (unknown) Referrals (units unknown) (unknown) (unknown) (no date) (unknown) (unknown) 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), (units unknown) (unknown) (unknown) (no date) (unknown) (unknown) 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) and Reports Other (units unknown) (unknown) (unknown) (no date) (unknown) (unknown) 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) (units unknown) (unknown) (unknown) (no date) (unknown) (unknown) Safety (units unknown) (unknown) (unknown) (no date) (unknown) (unknown) Seasonal allergies ( units unknown) (unknown) (unknown) (no date) (unknown) (unknown) Signed By: <Electronically signed by Faith Flanagan MD> (units unknown) (unknown) (unknown) (no date) (unknown) (unknown) Signed (units unknown) (unknown) (unknown) (no date) (unknown) (unknown) Sister Depression (u nits unknown) (unknown) (unknown) (no date) (unknown) (unknown) Smoking Status : Former smoker (quit vaping 11/2021) (units unknown) (unknown) (unknown) (no date) (unknown) (unknown) Smoking/Tobacc o use: discussed (units unknown) (unknown) (unknown) (no date) (unknown) (unknown) Social History (unit s unknown) (unknown) (unknown) (no date) (unknown) (unknown) Status: Acute (units unknown) (unknown) (unknown) (no date) (unknown) (unknown) Support Person (s):: Willian (units unknown) (unknown) (unknown) (no date) (unknown) (unknown) Surgical Histo ry (Updated 05/05/22 @ 15:35 by Rebecca Polk RN) (units unknown) (unknown) (unknown) (no date) (unknown) (unknown) Surrogate ?: no (units unknown) (unknown) (unknown) (no date) (unknown) (unknown) Symptoms since LMP: Reports amenorrhea, nausea, fatigue, breast tenderness, (units unknown) (unknown) (unknown) (no date) (unknown) (unknown) Teratogen Expo sures since LMP/Conception: Denies prescription medications, (units unknown) (unknown) (unknown) (no date) (unknown) (unknown) Testing Education (u nits unknown) (unknown) (unknown) (no date) (unknown) (unknown) Testing educat ion completed: group B strep, Spina bifida testing and Cell Free (units unknown) (unknown) (unknown) (no date) (unknown) (unknown) This note may have been all or partially generated using voice recognition (units unknown) (unknown) (unknown) (no date) (unknown) (unknown) Tobacco + Subs tance Use (units unknown) (unknown) (unknown) (no date) (unknown) (unknown) Tobacco Status (unit s unknown) (unknown) (unknown) (no date) (unknown) (unknown) Travel, Seatbe lt use and Influenza vaccine (already had flu shot, Covid x2) (units unknown) (unknown) (unknown) (no date) (unknown) (unknown) Trimester:: 1s t Trimester (<14wks) (units unknown) (unknown) (unknown) (no date) (unknown) (unknown) Type(s) of exercise: walking (units unknown) (unknown) (unknown) (no date) (unknown) (unknown) UProtein Movem ent PreLabor FHR Fndl Ht Pres Edema Cerv Exam US/Comment Next Appt (units unknown) (unknown) (unknown) (no date) (unknown) (unknown) Ultrasound performed?: No (units unknown) (unknown) (unknown) (no date) (unknown) (unknown) Varicella/chic rodrigue pox status: immunized (units unknown) (unknown) (unknown) (no date) (unknown) (unknown) Visit Date: 06/16/22 Last Updated by: Faith Flanagan MD (units unknown) (unknown) (unknown) (no date) (unknown) (unknown) 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 , 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 (units unknown) (unknown) (unknown) (no date) (unknown) (unknown) [place] teeth extracted () (units unknown) (unknown) (unknown) (no date) (unknown) (unknown) Zika virus exposure: No (units unknown) (unknown) (unknown) (no date) (unknown) (unknown) activity, X-ra y exposure, Medication use, Sauna/hot tub use, Dental care, (units unknown) (unknown) (unknown) (no date) (unknown) (unknown) alcohol intake : former (5-7 glasses of wine/week when not ) (units unknown) (unknown) (unknown) (no date) (unknown) (unknown) anyone in [facility] family with: (units unknown) (unknown) (unknown) (no date) (unknown) (unknown) at PP (units unknown) (unknown) (unknown) (no date) (unknown) (unknown) caffeine: Yes (<100mg/day) (units unknown) (unknown) (unknown) (no date) (unknown) (unknown) carbon monox detector in home: Yes (units unknown) (unknown) (unknown) (no date) (unknown) (unknown) caregiver/supp ort person: No (units unknown) (unknown) (unknown) (no date) (unknown) (unknown) connective tis norma d/o). 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 ) (units unknown) (unknown) (unknown) (no date) (unknown) (unknown) current occupational exposures/hazards: Yes (exposure in the building, but no (units unknown) (unknown) (unknown) (no date) (unknown) (unknown) daily servings fruits/ve-4 (units unknown) (unknown) (unknown) (no date) (unknown) (unknown) described, vis it schedule reviewed, ultrasounds policy reviewed, coverage 24 (units unknown) (unknown) (unknown) (no date) (unknown) (unknown) discussed, tuberculosis exposure discussed, CMV discussed, Toxoplasmosis (units unknown) (unknown) (unknown) (no date) (unknown) (unknown) do you feel sa fe at home: Yes (units unknown) (unknown) (unknown) (no date) (unknown) (unknown) duration: 30-4 5 minutes/day (units unknown) (unknown) (unknown) (no date) (unknown) (unknown) during the pas t year weight has: increased > 10 lbs (units unknown) (unknown) (unknown) (no date) (unknown) (unknown) education leve l: college (some college) (units unknown) (unknown) (unknown) (no date) (unknown) (unknown) fire extinguis her in home: Yes (units unknown) (unknown) (unknown) (no date) (unknown) (unknown) firearms in ho me: Yes (some locked up, not all) (units unknown) (unknown) (unknown) (no date) (unknown) (unknown) for genetic counseling. Likely needs echo. (units unknown) (unknown) (unknown) (no date) (unknown) (unknown) frequency: 3-4 times per week (units unknown) (unknown) (unknown) (no date) (unknown) (unknown) have occurred. If there are any questions, please contact the Medical Records (units unknown) (unknown) (unknown) (no date) (unknown) (unknown) helmet use: Yes (uni ts unknown) (unknown) (unknown) (no date) (unknown) (unknown) hours a day an d participation of father in care and office visits (units unknown) (unknown) (unknown) (no date) (unknown) (unknown) household memb ers: spouse and friend(s) (units unknown) (unknown) (unknown) (no date) (unknown) (unknown) housing: house (unit s unknown) (unknown) (unknown) (no date) (unknown) (unknown) inherited gene tic or chromosomal disorder (polycystic kidneys, Marfan's) (units unknown) (unknown) (unknown) (no date) (unknown) (unknown) irritability a nd other (constipation) (units unknown) (unknown) (unknown) (no date) (unknown) (unknown) lives independently: Yes (units unknown) (unknown) (unknown) (no date) (unknown) (unknown) marital status : (units unknown) (unknown) (unknown) (no date) (unknown) (unknown) may occur. 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 Please (units unknown) (unknown) (unknown) (no date) (unknown) (unknown) pets and anima ls: Yes (units unknown) (unknown) (unknown) (no date) (unknown) (unknown) precautions, Listeriosis prevention and Rubella Immunization (units unknown) (unknown) (unknown) (no date) (unknown) (unknown) prenat.vits,ca l,min -iron-folic 1 tab PO DAILY 05/05/22 [History Confirmed (units unknown) (unknown) (unknown) (no date) (unknown) (unknown) read the note carefully and recognize, using context, where these substitutions (units unknown) (unknown) (unknown) (no date) (unknown) (unknown) seatbelt use: always (units unknown) (unknown) (unknown) (no date) (unknown) (unknown) second hand exposure: Yes (roommate vapes) (units unknown) (unknown) (unknown) (no date) (unknown) (unknown) sister fr om hypoplastic left heart as an infant. Referral to [facility] placed (units unknown) (unknown) (unknown) (no date) (unknown) (unknown) software. 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 Cous in cystic fibrosis. -- Referral to [facility] for genetic counseling. (units unknown) (unknown) (unknown) (no date) (unknown) (unknown) tea, taking B6. 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 (units unknown) (unknown) (unknown) (no date) (unknown) (unknown) that [facility] may recommend additional testing as well. (units unknown) (unknown) (unknown) (no date) (unknown) (unknown) travel history : recent (domestic, [place]) (units unknown) (unknown) (unknown) (no date) (unknown) (unknown) water heater t emp set < 120 deg: Yes (units unknown) (unknown) (unknown) (no date) (unknown) (unknown) well-balanced diet: about half the time (units unknown) (unknown) (unknown) (no date) (unknown) (unknown) working smoke detector in home: Yes (units unknown) (unknown) Result panel 73 (unknown) (no date) (unknown) (unknown) NEGATIVE (units unknown) (unknown) (unknown) (no date) (unknown) (unknown) O Positive (units unknown) (unknown) Result panel 74 (unknown) (no date) (unknown) (unknown) 10.3 iu/ml (unknown ) (unknown) (no date) (unknown) (unknown) 10.3 iu/ml (unknown ) (unknown) (no date) (unknown) (unknown) NEGATIVE s/c (unknow n) (unknown) (no date) (unknown) (unknown) NEGATIVE s/c (unknow n) Result panel 75 (unknown) (no date) (unknown) (unknown) 10.3 iu/ml (unknown ) (unknown) (no date) (unknown) (unknown) 10.3 iu/ml (unknown ) (unknown) (no date) (unknown) (unknown) NEGATIVE (units unknown) (unknown) (unknown) (no date) (unknown) (unknown) NEGATIVE (units unknown) (unknown) (unknown) (no date) (unknown) (unknown) NEGATIVE s/c (unknow n) (unknown) (no date) (unknown) (unknown) NEGATIVE s/c (unknow n) Result panel 76 (unknown) (no date) (unknown) (unknown) 172 index (unknown ) (unknown) (no date) (unknown) (unknown) 172 index (unknown ) (unknown) (no date) (unknown) (unknown) Non Reactive (units unknown) (unknown) (unknown) (no date) (unknown) (unknown) Non Reactive (units unknown) (unknown) Result panel 77 (unknown) (no date) (unknown) (unknown) No growth. (units unknown) (unknown) Result panel 78 (unknown) (no date) (unknown) (unknown) (no value) (units unknown) (unknown) (unknown) (no date) (unknown) (unknown) Mixed gram + f jennifer. Deemed unsuitable for further studies. (units unknown) (unknown) Result panel 79 (unknown) (no date) (unknown) (unknown) (no value) (units unknown) (unknown) (unknown) (no date) (unknown) (unknown) (+8 lb 8 oz) 110/66 (units unknown) (unknown) (unknown) (no date) (unknown) (unknown) Genetic Screening/Teratolog y Counseling - Includes patient, baby's father, or (units unknown) (unknown) (unknown) (no date) (unknown) (unknown) -?-?-?-?-?-?-? -?-?- ?-?-? (units unknown) (unknown) (unknown) (no date) (unknown) (unknown) 06/16/22 (units unknown) (unknown) (unknown) (no date) (unknown) (unknown) 07/14/22 (units unknown) (unknown) (unknown) (no date) (unknown) (unknown) [id number] (units unknown) (unknown) (unknown) (no date) (unknown) (unknown) 12/29/22 Ultra sound #1 16w 0d (units unknown) (unknown) (unknown) (no date) (unknown) (unknown) 11w 5d 218 lb 8 oz ( units unknown) (unknown) (unknown) (no date) (unknown) (unknown) 15w 5d (units unknown) (unknown) (unknown) (no date) (unknown) (unknown) 4wks (units unknown) (unknown) (unknown) (no date) (unknown) (unknown) Abnormal lab v alues 1st trimester: discussed (units unknown) (unknown) (unknown) (no date) (unknown) (unknown) Acne (units unknown) (unknown) (unknown) (no date) (unknown) (unknown) Add'l Plan Details ( units unknown) (unknown) (unknown) (no date) (unknown) (unknown) Age/Sex: 22 / F Date of Service: (units unknown) (unknown) (unknown) (no date) (unknown) (unknown) Allergies (units unknown) (unknown) (unknown) (no date) (unknown) (unknown) [facility] (units unknown) (unknown) (unknown) (no date) (unknown) (unknown) [place] [address] (units unknown) (unknown) (unknown) (no date) (unknown) (unknown) Aneuploidy Screening Offered: Declined (unsure, wants to discuss w/ ) (units unknown) (unknown) (unknown) (no date) (unknown) (unknown) Anticipated co urse of care: discussed (units unknown) (unknown) (unknown) (no date) (unknown) (unknown) Anxiety (units unknown) (unknown) (unknown) (no date) (unknown) (unknown) Arthritis (units unknown) (unknown) (unknown) (no date) (unknown) (unknown) Assessment and Plan (units unknown) (unknown) (unknown) (no date) (unknown) (unknown) Attending Dr: Faith Flanagan MD (units unknown) (unknown) (unknown) (no date) (unknown) (unknown) Plan/Preferences (units unknown) (unknown) (unknown) (no date) (unknown) (unknown) Planning (unit s unknown) (unknown) (unknown) (no date) (unknown) (unknown) Blood transfusions?: yes (Never had but would accept) (units unknown) (unknown) (unknown) (no date) (unknown) (unknown) Caffeine use, Exercise and activity, work/environmental/ hazards, Sexual (units unknown) (unknown) (unknown) (no date) (unknown) (unknown) Childbirth Cla sses: discussed (units unknown) (unknown) (unknown) (no date) (unknown) (unknown) Current Estima te 12/31/22 Manual 15w 5d Final MOMO (units unknown) (unknown) (unknown) (no date) (unknown) (unknown) Current Pregna ncy History (units unknown) (unknown) (unknown) (no date) (unknown) (unknown) DNA (units unknown) (unknown) (unknown) (no date) (unknown) (unknown) : 1 Acct:[id number] (units unknown) (unknown) (unknown) (no date) (unknown) (unknown) Date of positi ve home test: 04/19/22 (units unknown) (unknown) (unknown) (no date) (unknown) (unknown) Date (units unknown) (unknown) (unknown) (no date) (unknown) (unknown) Dating u/s concordant with LMP. Keep MOMO 12/31/22. (units unknown) (unknown) (unknown) (no date) (unknown) (unknown) Denies over th e counter medications, Denies alcohol, Denies illicit drugs and (units unknown) (unknown) (unknown) (no date) (unknown) (unknown) Depression: discussed (units unknown) (unknown) (unknown) (no date) (unknown) (unknown) Dept at . (units unknown) (unknown) (unknown) (no date) (unknown) (unknown) Desires geneti c testing. Will see if cfDNA can be scheduled. Discussed (units unknown) (unknown) (unknown) (no date) (unknown) (unknown) Diet and Exercise (u nits unknown) (unknown) (unknown) (no date) (unknown) (unknown) Documented By: Faith Flanagan MD 07/14/22 1326 (units unknown) (unknown) (unknown) (no date) (unknown) (unknown) Draft (units unknown) (unknown) (unknown) (no date) (unknown) (unknown) MOMO Calculator (unit s unknown) (unknown) (unknown) (no date) (unknown) (unknown) EGA Weight BP UGlucose (units unknown) (unknown) (unknown) (no date) (unknown) (unknown) Estimated Deli very Date Method Current (units unknown) (unknown) (unknown) (no date) (unknown) (unknown) Family History (Updated 05/05/22 @ 15:59 by Rebecca Polk RN) (units unknown) (unknown) (unknown) (no date) (unknown) (unknown) Family/Other Marfans syndrome (units unknown) (unknown) (unknown) (no date) (unknown) (unknown) Family/Other Marfans syndrome (units unknown) (unknown) (unknown) (no date) (unknown) (unknown) Family/Other Polycystic kidney disease (units unknown) (unknown) (unknown) (no date) (unknown) (unknown) Father of Baby : same (units unknown) (unknown) (unknown) (no date) (unknown) (unknown) First Trimeste r Education Checklist (units unknown) (unknown) (unknown) (no date) (unknown) (unknown) Genetic Screen ing + Counseling (units unknown) (unknown) (unknown) (no date) (unknown) (unknown) Genetic Screening (u nits unknown) (unknown) (unknown) (no date) (unknown) (unknown) Genetic polycy stic kidney disease; family Hx Marfan Syndrome (pt has no known (units unknown) (unknown) (unknown) (no date) (unknown) (unknown) Grandfather Marfans syndrome (units unknown) (unknown) (unknown) (no date) (unknown) (unknown) Grandfather Me ntal health problem (units unknown) (unknown) (unknown) (no date) (unknown) (unknown) Grandmother Lymphoma (units unknown) (unknown) (unknown) (no date) (unknown) (unknown) 1 Mult iple births 0 (units unknown) (unknown) (unknown) (no date) (unknown) (unknown) HIV risk evaluation: low risk (units unknown) (unknown) (unknown) (no date) (unknown) (unknown) Health Center Education (units unknown) (unknown) (unknown) (no date) (unknown) (unknown) Health center information: nature of practice discussed, personnel (units unknown) (unknown) (unknown) (no date) (unknown) (unknown) Hepatitis C ri sk evaluation: low risk (units unknown) (unknown) (unknown) (no date) (unknown) (unknown) History of Hepatitis B: No (units unknown) (unknown) (unknown) (no date) (unknown) (unknown) History of Hepatitis C: No (units unknown) (unknown) (unknown) (no date) (unknown) (unknown) History of rem oval of skin mole (units unknown) (unknown) (unknown) (no date) (unknown) (unknown) Hospital: [facility] (units unknown) (unknown) (unknown) (no date) (unknown) (unknown) Hx # Pregnancies 0 Elective abortions 0 (units unknown) (unknown) (unknown) (no date) (unknown) (unknown) Hx # Term Pregnancies 0 Ectopic pregnancies 0 (units unknown) (unknown) (unknown) (no date) (unknown) (unknown) will be adopted?: no (units unknown) (unknown) (unknown) (no date) (unknown) (unknown) Infection History (u nits unknown) (unknown) (unknown) (no date) (unknown) (unknown) Infectious Dis ease Education (units unknown) (unknown) (unknown) (no date) (unknown) (unknown) Infectious dis ease exposure: chicken pox immunity discussed, hepatitis risk (units unknown) (unknown) (unknown) (no date) (unknown) (unknown) Initial Weight : 210 lb (units unknown) (unknown) (unknown) (no date) (unknown) (unknown) Initials (units unknown) (unknown) (unknown) (no date) (unknown) (unknown) Intake (units unknown) (unknown) (unknown) (no date) (unknown) (unknown) ROSALIE (units unknown) (unknown) (unknown) (no date) (unknown) (unknown) LGSIL on Pap s mear of cervix (units unknown) (unknown) (unknown) (no date) (unknown) (unknown) Likely needs f etal echo. (units unknown) (unknown) (unknown) (no date) (unknown) (unknown) Live with some one with TB or exposed to TB: No (units unknown) (unknown) (unknown) (no date) (unknown) (unknown) Loc: [facility] (units unknown) (unknown) (unknown) (no date) (unknown) (unknown) Marital status : (units unknown) (unknown) (unknown) (no date) (unknown) (unknown) Medical Histor y (Updated 06/16/22 @ 12:31 by Shaniqua Landry MA) (units unknown) (unknown) (unknown) (no date) (unknown) (unknown) Mother Polycys tic kidney disease (units unknown) (unknown) (unknown) (no date) (unknown) (unknown) No Known Drug Allergies Allergy (Unverified 06/16/22 12:19) (units unknown) (unknown) (unknown) (no date) (unknown) (unknown) No no 158 absent (un its unknown) (unknown) (unknown) (no date) (unknown) (unknown) No no absent 4wks (u nits unknown) (unknown) (unknown) (no date) (unknown) (unknown) No significant cramping. Nausea is manageable - using bogdan mints and (units unknown) (unknown) (unknown) (no date) (unknown) (unknown) Notes (units unknown) (unknown) (unknown) (no date) (unknown) (unknown) Number of Maylin ng Children 0 (units unknown) (unknown) (unknown) (no date) (unknown) (unknown) Number of fetu ses:: Single (units unknown) (unknown) (unknown) (no date) (unknown) (unknown) Nutrition and weight gain counseling: special diet: discussed (units unknown) (unknown) (unknown) (no date) (unknown) (unknown) OB Office Visit (uni ts unknown) (unknown) (unknown) (no date) (unknown) (unknown) OB Visit Log (units unknown) (unknown) (unknown) (no date) (unknown) (unknown) On contr ol at conception?: No (units unknown) (unknown) (unknown) (no date) (unknown) (unknown) Other Estimate s 12/31/22 LMP (Certain) 15w 5d (units unknown) (unknown) (unknown) (no date) (unknown) (unknown) PFSH (units unknown) (unknown) (unknown) (no date) (unknown) (unknown) Pap LSIL 01/23 22, but no reflex HPV was run, no f/u done. 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 treated and cured) (units unknown) (unknown) (unknown) (no date) (unknown) (unknown) Partner histor y of genital herpes: Yes (units unknown) (unknown) (unknown) (no date) (unknown) (unknown) Partner: Willian Lopez (units unknown) (unknown) (unknown) (no date) (unknown) (unknown) Patient's age 35 years or older as of estimated date of delivery: No (units unknown) (unknown) (unknown) (no date) (unknown) (unknown) Patient: Colleen Lopez MR#: [id number] (units unknown) (unknown) (unknown) (no date) (unknown) (unknown) Client Reporting Associate: Masha (units unknown) (unknown) (unknown) (no date) (unknown) (unknown) Personal histo ry of STD: HPV (? no HPV actually run from pap) (units unknown) (unknown) (unknown) (no date) (unknown) (unknown) Personal histo ry of genital herpes: No (units unknown) (unknown) (unknown) (no date) (unknown) (unknown) Polycystic kid shannan disease (units unknown) (unknown) (unknown) (no date) (unknown) (unknown) History (u nits unknown) (unknown) (unknown) (no date) (unknown) (unknown) type :: First (units unknown) (unknown) (unknown) (no date) (unknown) (unknown) Education ( units unknown) (unknown) (unknown) (no date) (unknown) (unknown) Initi al Assessment (units unknown) (unknown) (unknown) (no date) (unknown) (unknown) Speci fic Issues/Plans (units unknown) (unknown) (unknown) (no date) (unknown) (unknown) Testi ng: discussed (units unknown) (unknown) (unknown) (no date) (unknown) (unknown) Visit (unit s unknown) (unknown) (unknown) (no date) (unknown) (unknown) educa tion packet: Child education/plan, symptoms, (units unknown) (unknown) (unknown) (no date) (unknown) (unknown) Primary Care Provider: KELLEN (units unknown) (unknown) (unknown) (no date) (unknown) (unknown) Primary Ob Provider: Faith Flanagan (units unknown) (unknown) (unknown) (no date) (unknown) (unknown) Prior GBS-Infe cted child: No (units unknown) (unknown) (unknown) (no date) (unknown) (unknown) Providers (units unknown) (unknown) (unknown) (no date) (unknown) (unknown) 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 No exposures for over a month. (units unknown) (unknown) (unknown) (no date) (unknown) (unknown) Pt with polycy stic kidney disease. No issues with kidney function. FOB's (units unknown) (unknown) (unknown) (no date) (unknown) (unknown) Rash or viral illness since last menstrual period: Yes (URI vs allergies (Covid (units unknown) (unknown) (unknown) (no date) (unknown) (unknown) Reason For Visit (un its unknown) (unknown) (unknown) (no date) (unknown) (unknown) Recent travel outside of country?: Yes ([place] only) (units unknown) (unknown) (unknown) (no date) (unknown) (unknown) Recurrent preg haven loss or a stillbirth: No (units unknown) (unknown) (unknown) (no date) (unknown) (unknown) Referral for f etal echo placed today. 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) and Reports Other (units unknown) (unknown) (unknown) (no date) (unknown) (unknown) 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) (units unknown) (unknown) (unknown) (no date) (unknown) (unknown) Safety (units unknown) (unknown) (unknown) (no date) (unknown) (unknown) Seasonal allergies ( units unknown) (unknown) (unknown) (no date) (unknown) (unknown) Signed By: (units unknown) (unknown) (unknown) (no date) (unknown) (unknown) Sister Depression (u nits unknown) (unknown) (unknown) (no date) (unknown) (unknown) Smoking Status : Former smoker (quit vaping 11/2021) (units unknown) (unknown) (unknown) (no date) (unknown) (unknown) Smoking/Tobacc o use: discussed (units unknown) (unknown) (unknown) (no date) (unknown) (unknown) Social History (unit s unknown) (unknown) (unknown) (no date) (unknown) (unknown) Support Person (s):: Willian (units unknown) (unknown) (unknown) (no date) (unknown) (unknown) Surgical Histo ry (Updated 05/05/22 @ 15:35 by Rebecca Polk RN) (units unknown) (unknown) (unknown) (no date) (unknown) (unknown) Surrogate ?: no (units unknown) (unknown) (unknown) (no date) (unknown) (unknown) Symptoms since LMP: Reports amenorrhea, nausea, fatigue, breast tenderness, (units unknown) (unknown) (unknown) (no date) (unknown) (unknown) Teratogen Expo sures since LMP/Conception: Denies prescription medications, (units unknown) (unknown) (unknown) (no date) (unknown) (unknown) Testing Education (u nits unknown) (unknown) (unknown) (no date) (unknown) (unknown) Testing educat ion completed: group B strep, Spina bifida testing and Cell Free (units unknown) (unknown) (unknown) (no date) (unknown) (unknown) This note may have been all or partially generated using voice recognition (units unknown) (unknown) (unknown) (no date) (unknown) (unknown) Tobacco + Subs tance Use (units unknown) (unknown) (unknown) (no date) (unknown) (unknown) Tobacco Status (unit s unknown) (unknown) (unknown) (no date) (unknown) (unknown) Travel, Seatbe lt use and Influenza vaccine (already had flu shot, Covid x2) (units unknown) (unknown) (unknown) (no date) (unknown) (unknown) Type(s) of exercise: walking (units unknown) (unknown) (unknown) (no date) (unknown) (unknown) UProtein Movem ent PreLabor FHR Fndl Ht Pres Edema Cerv Exam US/Comment Next Appt (units unknown) (unknown) (unknown) (no date) (unknown) (unknown) Varicella/chic rodrigue pox status: immunized (units unknown) (unknown) (unknown) (no date) (unknown) (unknown) Visit Date: 06/16/22 Last Updated by: Faith Flanagan MD (units unknown) (unknown) (unknown) (no date) (unknown) (unknown) Visit Date: 07/14/22 Last Updated by: Faith Flaangan MD (units unknown) (unknown) (unknown) (no date) (unknown) (unknown) Visit Reasons: 15 wk OB (units unknown) (unknown) (unknown) (no date) (unknown) (unknown) Vitamins and i julio c, Diet and weight gain, Fish and mercury intake, Smoking, (units unknown) (unknown) (unknown) (no date) (unknown) (unknown) WG (units unknown) (unknown) (unknown) (no date) (unknown) (unknown) Will be having anatomy u/s through [facility]. 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 (units unknown) (unknown) (unknown) (no date) (unknown) (unknown) [place] teeth extracted () (units unknown) (unknown) (unknown) (no date) (unknown) (unknown) Zika virus exposure: No (units unknown) (unknown) (unknown) (no date) (unknown) (unknown) activity, X-ra y exposure, Medication use, Sauna/hot tub use, Dental care, (units unknown) (unknown) (unknown) (no date) (unknown) (unknown) alcohol intake : former (5-7 glasses of wine/week when not ) (units unknown) (unknown) (unknown) (no date) (unknown) (unknown) anyone in [facility] family with: (units unknown) (unknown) (unknown) (no date) (unknown) (unknown) at PP (units unknown) (unknown) (unknown) (no date) (unknown) (unknown) caffeine: Yes (<100mg/day) (units unknown) (unknown) (unknown) (no date) (unknown) (unknown) carbon monox detector in home: Yes (units unknown) (unknown) (unknown) (no date) (unknown) (unknown) caregiver/supp ort person: No (units unknown) (unknown) (unknown) (no date) (unknown) (unknown) cfDNA negative . It's a girl! (units unknown) (unknown) (unknown) (no date) (unknown) (unknown) connective tis norma d/o). 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 ) (units unknown) (unknown) (unknown) (no date) (unknown) (unknown) current occupational exposures/hazards: Yes (exposure in the building, but no (units unknown) (unknown) (unknown) (no date) (unknown) (unknown) daily servings fruits/ve-4 (units unknown) (unknown) (unknown) (no date) (unknown) (unknown) described, vis it schedule reviewed, ultrasounds policy reviewed, coverage 24 (units unknown) (unknown) (unknown) (no date) (unknown) (unknown) discussed, tuberculosis exposure discussed, CMV discussed, Toxoplasmosis (units unknown) (unknown) (unknown) (no date) (unknown) (unknown) do you feel sa fe at home: Yes (units unknown) (unknown) (unknown) (no date) (unknown) (unknown) duration: 30-4 5 minutes/day (units unknown) (unknown) (unknown) (no date) (unknown) (unknown) during the pas t year weight has: increased > 10 lbs (units unknown) (unknown) (unknown) (no date) (unknown) (unknown) education leve l: college (some college) (units unknown) (unknown) (unknown) (no date) (unknown) (unknown) fire extinguis her in home: Yes (units unknown) (unknown) (unknown) (no date) (unknown) (unknown) firearms in ho me: Yes (some locked up, not all) (units unknown) (unknown) (unknown) (no date) (unknown) (unknown) for genetic counseling. Likely needs echo. (units unknown) (unknown) (unknown) (no date) (unknown) (unknown) frequency: 3-4 times per week (units unknown) (unknown) (unknown) (no date) (unknown) (unknown) have occurred. If there are any questions, please contact the Medical Records (units unknown) (unknown) (unknown) (no date) (unknown) (unknown) helmet use: Yes (uni ts unknown) (unknown) (unknown) (no date) (unknown) (unknown) hours a day an d participation of father in care and office visits (units unknown) (unknown) (unknown) (no date) (unknown) (unknown) household memb ers: spouse and friend(s) (units unknown) (unknown) (unknown) (no date) (unknown) (unknown) housing: house (unit s unknown) (unknown) (unknown) (no date) (unknown) (unknown) inherited gene tic or chromosomal disorder (polycystic kidneys, Marfan's) (units unknown) (unknown) (unknown) (no date) (unknown) (unknown) irritability a nd other (constipation) (units unknown) (unknown) (unknown) (no date) (unknown) (unknown) lives independently: Yes (units unknown) (unknown) (unknown) (no date) (unknown) (unknown) marital status : (units unknown) (unknown) (unknown) (no date) (unknown) (unknown) may occur. 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 Please (units unknown) (unknown) (unknown) (no date) (unknown) (unknown) pets and anima ls: Yes (units unknown) (unknown) (unknown) (no date) (unknown) (unknown) precautions, Listeriosis prevention and Rubella Immunization (units unknown) (unknown) (unknown) (no date) (unknown) (unknown) read the note carefully and recognize, using context, where these substitutions (units unknown) (unknown) (unknown) (no date) (unknown) (unknown) seatbelt use: always (units unknown) (unknown) (unknown) (no date) (unknown) (unknown) second hand exposure: Yes (roommate vapes) (units unknown) (unknown) (unknown) (no date) (unknown) (unknown) sister fr om hypoplastic left heart as an infant. Referral to [facility] placed (units unknown) (unknown) (unknown) (no date) (unknown) (unknown) software. 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 Cous in cystic fibrosis. -- Referral to [facility] for genetic counseling. (units unknown) (unknown) (unknown) (no date) (unknown) (unknown) tea, taking B6. 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 (units unknown) (unknown) (unknown) (no date) (unknown) (unknown) that [facility] may recommend additional testing as well. (units unknown) (unknown) (unknown) (no date) (unknown) (unknown) travel history : recent (domestic, [place]) (units unknown) (unknown) (unknown) (no date) (unknown) (unknown) water heater t emp set < 120 deg: Yes (units unknown) (unknown) (unknown) (no date) (unknown) (unknown) well-balanced diet: about half the time (units unknown) (unknown) (unknown) (no date) (unknown) (unknown) working smoke detector in home: Yes (units unknown) (unknown) Result panel 80 (unknown) (no date) (unknown) (unknown) (no value) (units unknown) (unknown) (unknown) (no date) (unknown) (unknown) (+8 lb 8 oz) 110/66 (units unknown) (unknown) (unknown) (no date) (unknown) (unknown) (+9 lb 8 oz) 140/86 (units unknown) (unknown) (unknown) (no date) (unknown) (unknown) Genetic Screening/Teratolog y Counseling - Includes patient, baby's father, or (units unknown) (unknown) (unknown) (no date) (unknown) (unknown) -?-?-?-?-?-?-? -?-?- ?-?-? (units unknown) (unknown) (unknown) (no date) (unknown) (unknown) 06/16/22 (units unknown) (unknown) (unknown) (no date) (unknown) (unknown) 07/14/22 (units unknown) (unknown) (unknown) (no date) (unknown) (unknown) 07/14/22] (units unknown) (unknown) (unknown) (no date) (unknown) (unknown) [id number] (units unknown) (unknown) (unknown) (no date) (unknown) (unknown) 12/29/22 Ultra sound #1 16w 0d (units unknown) (unknown) (unknown) (no date) (unknown) (unknown) 11w 5d 218 lb 8 oz ( units unknown) (unknown) (unknown) (no date) (unknown) (unknown) 13:35 (units unknown) (unknown) (unknown) (no date) (unknown) (unknown) 15w 5d 219 lb 8 oz ( units unknown) (unknown) (unknown) (no date) (unknown) (unknown) 4wks (units unknown) (unknown) (unknown) (no date) (unknown) (unknown) Abnormal lab v alues 1st trimester: discussed (units unknown) (unknown) (unknown) (no date) (unknown) (unknown) Acne (units unknown) (unknown) (unknown) (no date) (unknown) (unknown) Add'l Plan Details ( units unknown) (unknown) (unknown) (no date) (unknown) (unknown) Age/Sex: 22 / Date of Service: (units unknown) (unknown) (unknown) (no date) (unknown) (unknown) Allergies (units unknown) (unknown) (unknown) (no date) (unknown) (unknown) Chandni Dooley ly Medicine (units unknown) (unknown) (unknown) (no date) (unknown) (unknown) FARIHA Tariq [id number] (units unknown) (unknown) (unknown) (no date) (unknown) (unknown) Aneuploidy Screening Offered: Declined (unsure, wants to discuss w/ ) (units unknown) (unknown) (unknown) (no date) (unknown) (unknown) Anticipated co urse of care: discussed (units unknown) (unknown) (unknown) (no date) (unknown) (unknown) Anxiety (units unknown) (unknown) (unknown) (no date) (unknown) (unknown) Arthritis (units unknown) (unknown) (unknown) (no date) (unknown) (unknown) Assessment and Plan (units unknown) (unknown) (unknown) (no date) (unknown) (unknown) Attending Dr: Faith Flanagan MD (units unknown) (unknown) (unknown) (no date) (unknown) (unknown) BMI 34.3 (units unknown) (unknown) (unknown) (no date) (unknown) (unknown) BP 140/86 (units unknown) (unknown) (unknown) (no date) (unknown) (unknown) Plan/Preferences (units unknown) (unknown) (unknown) (no date) (unknown) (unknown) Planning (unit s unknown) (unknown) (unknown) (no date) (unknown) (unknown) Blood Pressure Location Rt brachial (units unknown) (unknown) (unknown) (no date) (unknown) (unknown) Blood transfusions?: yes (Never had but would accept) (units unknown) (unknown) (unknown) (no date) (unknown) (unknown) Caffeine use, Exercise and activity, work/environmental/ hazards, Sexual (units unknown) (unknown) (unknown) (no date) (unknown) (unknown) Childbirth Cla sses: discussed (units unknown) (unknown) (unknown) (no date) (unknown) (unknown) Current Estima te 12/31/22 Manual 15w 5d Final MOMO (units unknown) (unknown) (unknown) (no date) (unknown) (unknown) Current Pregna ncy History (units unknown) (unknown) (unknown) (no date) (unknown) (unknown) DNA (units unknown) (unknown) (unknown) (no date) (unknown) (unknown) : 1 Acct:[id number] (units unknown) (unknown) (unknown) (no date) (unknown) (unknown) Date of positi ve home test: 04/19/22 (units unknown) (unknown) (unknown) (no date) (unknown) (unknown) Date (units unknown) (unknown) (unknown) (no date) (unknown) (unknown) Dating u/s concordant with LMP. Keep MOMO 12/31/22. (units unknown) (unknown) (unknown) (no date) (unknown) (unknown) Denies over th e counter medications, Denies alcohol, Denies illicit drugs and (units unknown) (unknown) (unknown) (no date) (unknown) (unknown) Depression: discussed (units unknown) (unknown) (unknown) (no date) (unknown) (unknown) Dept at . (units unknown) (unknown) (unknown) (no date) (unknown) (unknown) Desires geneti c testing. Will see if cfDNA can be scheduled. Discussed (units unknown) (unknown) (unknown) (no date) (unknown) (unknown) Diet and Exercise (u nits unknown) (unknown) (unknown) (no date) (unknown) (unknown) Documented By: Faith Flanagan MD 07/14/22 1326 (units unknown) (unknown) (unknown) (no date) (unknown) (unknown) Draft (units unknown) (unknown) (unknown) (no date) (unknown) (unknown) MOMO Calculator (unit s unknown) (unknown) (unknown) (no date) (unknown) (unknown) EGA Weight BP UGlucose (units unknown) (unknown) (unknown) (no date) (unknown) (unknown) Estimated Deli very Date Method Current (units unknown) (unknown) (unknown) (no date) (unknown) (unknown) Family History (Updated 05/05/22 @ 15:59 by Rebecca Polk RN) (units unknown) (unknown) (unknown) (no date) (unknown) (unknown) Family/Other Marfans syndrome (units unknown) (unknown) (unknown) (no date) (unknown) (unknown) Family/Other Marfans syndrome (units unknown) (unknown) (unknown) (no date) (unknown) (unknown) Family/Other Polycystic kidney disease (units unknown) (unknown) (unknown) (no date) (unknown) (unknown) Father of Baby : same (units unknown) (unknown) (unknown) (no date) (unknown) (unknown) First Trimeste r Education Checklist (units unknown) (unknown) (unknown) (no date) (unknown) (unknown) Genetic Screen ing + Counseling (units unknown) (unknown) (unknown) (no date) (unknown) (unknown) Genetic Screening (u nits unknown) (unknown) (unknown) (no date) (unknown) (unknown) Genetic polycy stic kidney disease; family Hx Marfan Syndrome (pt has no known (units unknown) (unknown) (unknown) (no date) (unknown) (unknown) Grandfather Marfans syndrome (units unknown) (unknown) (unknown) (no date) (unknown) (unknown) Grandfather Me ntal health problem (units unknown) (unknown) (unknown) (no date) (unknown) (unknown) Grandmother Lymphoma (units unknown) (unknown) (unknown) (no date) (unknown) (unknown) 1 Mult iple births 0 (units unknown) (unknown) (unknown) (no date) (unknown) (unknown) HIV risk evaluation: low risk (units unknown) (unknown) (unknown) (no date) (unknown) (unknown) Health Center Education (units unknown) (unknown) (unknown) (no date) (unknown) (unknown) Health center information: nature of practice discussed, personnel (units unknown) (unknown) (unknown) (no date) (unknown) (unknown) Height 5 ft 7 in (un its unknown) (unknown) (unknown) (no date) (unknown) (unknown) Hepatitis C ri sk evaluation: low risk (units unknown) (unknown) (unknown) (no date) (unknown) (unknown) History of Hepatitis B: No (units unknown) (unknown) (unknown) (no date) (unknown) (unknown) History of Hepatitis C: No (units unknown) (unknown) (unknown) (no date) (unknown) (unknown) History of rem oval of skin mole (units unknown) (unknown) (unknown) (no date) (unknown) (unknown) Hospital: (units unknown) (unknown) (unknown) (no date) (unknown) (unknown) Hx # Pregnancies 0 Elective abortions 0 (units unknown) (unknown) (unknown) (no date) (unknown) (unknown) Hx # Term Pregnancies 0 Ectopic pregnancies 0 (units unknown) (unknown) (unknown) (no date) (unknown) (unknown) Infant will be adopted?: no (units unknown) (unknown) (unknown) (no date) (unknown) (unknown) Infection History (u nits unknown) (unknown) (unknown) (no date) (unknown) (unknown) Infectious Dis ease Education (units unknown) (unknown) (unknown) (no date) (unknown) (unknown) Infectious dis ease exposure: chicken pox immunity discussed, hepatitis risk (units unknown) (unknown) (unknown) (no date) (unknown) (unknown) Initial Weight : 210 lb (units unknown) (unknown) (unknown) (no date) (unknown) (unknown) Initials (units unknown) (unknown) (unknown) (no date) (unknown) (unknown) Intake Clinica l Staff (units unknown) (unknown) (unknown) (no date) (unknown) (unknown) Intake perform ed by: Chantelle Hernández (units unknown) (unknown) (unknown) (no date) (unknown) (unknown) Intake (units unknown) (unknown) (unknown) (no date) (unknown) (unknown) ROSALIE (units unknown) (unknown) (unknown) (no date) (unknown) (unknown) LGSIL on Pap s mear of cervix (units unknown) (unknown) (unknown) (no date) (unknown) (unknown) Likely needs f etal echo. (units unknown) (unknown) (unknown) (no date) (unknown) (unknown) Live with some one with TB or exposed to TB: No (units unknown) (unknown) (unknown) (no date) (unknown) (unknown) Loc: [facility] (units unknown) (unknown) (unknown) (no date) (unknown) (unknown) Marital status : (units unknown) (unknown) (unknown) (no date) (unknown) (unknown) Medical Histor y (Updated 06/16/22 @ 12:31 by Shaniqua Landry MA) (units unknown) (unknown) (unknown) (no date) (unknown) (unknown) Medications (units unknown) (unknown) (unknown) (no date) (unknown) (unknown) Mother Polycys tic kidney disease (units unknown) (unknown) (unknown) (no date) (unknown) (unknown) No Known Drug Allergies Allergy (Unverified 07/14/22 13:35) (units unknown) (unknown) (unknown) (no date) (unknown) (unknown) No no 158 absent (un its unknown) (unknown) (unknown) (no date) (unknown) (unknown) No no absent 4wks (u nits unknown) (unknown) (unknown) (no date) (unknown) (unknown) No significant cramping. Nausea is manageable - using bogdan mints and (units unknown) (unknown) (unknown) (no date) (unknown) (unknown) Notes (units unknown) (unknown) (unknown) (no date) (unknown) (unknown) Number of Maylin ng Children 0 (units unknown) (unknown) (unknown) (no date) (unknown) (unknown) Number of fetu ses:: Single (units unknown) (unknown) (unknown) (no date) (unknown) (unknown) Nutrition and weight gain counseling: special diet: discussed (units unknown) (unknown) (unknown) (no date) (unknown) (unknown) OB Office Visit (uni ts unknown) (unknown) (unknown) (no date) (unknown) (unknown) OB Visit Log (units unknown) (unknown) (unknown) (no date) (unknown) (unknown) On contr ol at conception?: No (units unknown) (unknown) (unknown) (no date) (unknown) (unknown) Other Estimate s 12/31/22 LMP (Certain) 15w 5d (units unknown) (unknown) (unknown) (no date) (unknown) (unknown) Oxygen Deliver y Method room air (units unknown) (unknown) (unknown) (no date) (unknown) (unknown) PFSH (units unknown) (unknown) (unknown) (no date) (unknown) (unknown) Pap LSIL 01/23 22, but no reflex HPV was run, no f/u done. 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 treated and cured) (units unknown) (unknown) (unknown) (no date) (unknown) (unknown) Partner histor y of genital herpes: Yes (units unknown) (unknown) (unknown) (no date) (unknown) (unknown) Partner: Willian Lopez (units unknown) (unknown) (unknown) (no date) (unknown) (unknown) Patient's age 35 years or older as of estimated date of delivery: No (units unknown) (unknown) (unknown) (no date) (unknown) (unknown) Patient: Colleen Lopez MR#: [id number] (units unknown) (unknown) (unknown) (no date) (unknown) (unknown) Client Reporting Associate: Masha (units unknown) (unknown) (unknown) (no date) (unknown) (unknown) Personal histo ry of STD: HPV (? no HPV actually run from pap) (units unknown) (unknown) (unknown) (no date) (unknown) (unknown) Personal histo ry of genital herpes: No (units unknown) (unknown) (unknown) (no date) (unknown) (unknown) Polycystic kid shannan disease (units unknown) (unknown) (unknown) (no date) (unknown) (unknown) Position Sitting (un its unknown) (unknown) (unknown) (no date) (unknown) (unknown) History (u nits unknown) (unknown) (unknown) (no date) (unknown) (unknown) type :: First (units unknown) (unknown) (unknown) (no date) (unknown) (unknown) Education ( units unknown) (unknown) (unknown) (no date) (unknown) (unknown) Initi al Assessment (units unknown) (unknown) (unknown) (no date) (unknown) (unknown) Speci fic Issues/Plans (units unknown) (unknown) (unknown) (no date) (unknown) (unknown) Testi ng: discussed (units unknown) (unknown) (unknown) (no date) (unknown) (unknown) Visit (unit s unknown) (unknown) (unknown) (no date) (unknown) (unknown) educa tion packet: Child education/plan, symptoms, (units unknown) (unknown) (unknown) (no date) (unknown) (unknown) Primary Care Provider: DOD (units unknown) (unknown) (unknown) (no date) (unknown) (unknown) Primary Ob Provider: Faith Flanagan (units unknown) (unknown) (unknown) (no date) (unknown) (unknown) Prior GBS-Infe cted child: No (units unknown) (unknown) (unknown) (no date) (unknown) (unknown) Providers (units unknown) (unknown) (unknown) (no date) (unknown) (unknown) 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 No exposures for over a month. (units unknown) (unknown) (unknown) (no date) (unknown) (unknown) Pt with polycy stic kidney disease. No issues with kidney function. FOB's (units unknown) (unknown) (unknown) (no date) (unknown) (unknown) Pulse 83 (units unknown) (unknown) (unknown) (no date) (unknown) (unknown) Pulse Oximetry (%) 99 (units unknown) (unknown) (unknown) (no date) (unknown) (unknown) Pulse Source Monitor (units unknown) (unknown) (unknown) (no date) (unknown) (unknown) Rash or viral illness since last menstrual period: Yes (URI vs allergies (Covid (units unknown) (unknown) (unknown) (no date) (unknown) (unknown) Reason For Visit (un its unknown) (unknown) (unknown) (no date) (unknown) (unknown) Recent travel outside of country?: Yes ([place] only) (units unknown) (unknown) (unknown) (no date) (unknown) (unknown) Recurrent preg haven loss or a stillbirth: No (units unknown) (unknown) (unknown) (no date) (unknown) (unknown) Referral for f etal echo placed today. 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) (units unknown) (unknown) (unknown) (no date) (unknown) (unknown) Safety (units unknown) (unknown) (unknown) (no date) (unknown) (unknown) Seasonal allergies ( units unknown) (unknown) (unknown) (no date) (unknown) (unknown) Signed By: (units unknown) (unknown) (unknown) (no date) (unknown) (unknown) Sister Depression (u nits unknown) (unknown) (unknown) (no date) (unknown) (unknown) Smoking Status : Former smoker (quit vaping 11/2021) (units unknown) (unknown) (unknown) (no date) (unknown) (unknown) Smoking/Tobacc o use: discussed (units unknown) (unknown) (unknown) (no date) (unknown) (unknown) Social History (unit s unknown) (unknown) (unknown) (no date) (unknown) (unknown) Support Person (s):: Willian (units unknown) (unknown) (unknown) (no date) (unknown) (unknown) Surgical Histo ry (Updated 05/05/22 @ 15:35 by Rebecca Polk RN) (units unknown) (unknown) (unknown) (no date) (unknown) (unknown) Surrogate ?: no (units unknown) (unknown) (unknown) (no date) (unknown) (unknown) Symptoms since LMP: Reports amenorrhea, nausea, fatigue, breast tenderness, (units unknown) (unknown) (unknown) (no date) (unknown) (unknown) Teratogen Expo sures since LMP/Conception: Denies prescription medications, (units unknown) (unknown) (unknown) (no date) (unknown) (unknown) Testing Education (u nits unknown) (unknown) (unknown) (no date) (unknown) (unknown) Testing educat ion completed: group B strep, Spina bifida testing and Cell Free (units unknown) (unknown) (unknown) (no date) (unknown) (unknown) This note may have been all or partially generated using voice recognition (units unknown) (unknown) (unknown) (no date) (unknown) (unknown) Tobacco + Subs tance Use (units unknown) (unknown) (unknown) (no date) (unknown) (unknown) Tobacco Status (unit s unknown) (unknown) (unknown) (no date) (unknown) (unknown) Travel, Seatbe lt use and Influenza vaccine (already had flu shot, Covid x2) (units unknown) (unknown) (unknown) (no date) (unknown) (unknown) Trimester:: 2n d Trimester (14-<28wks) (units unknown) (unknown) (unknown) (no date) (unknown) (unknown) Type(s) of exercise: walking (units unknown) (unknown) (unknown) (no date) (unknown) (unknown) UProtein Movem ent PreLabor FHR Fndl Ht Pres Edema Cerv Exam US/Comment Next Appt (units unknown) (unknown) (unknown) (no date) (unknown) (unknown) Varicella/chic rodrigue pox status: immunized (units unknown) (unknown) (unknown) (no date) (unknown) (unknown) Visit Date: 06/16/22 Last Updated by: Faith Flanagan MD (units unknown) (unknown) (unknown) (no date) (unknown) (unknown) Visit Date: 07/14/22 Last Updated by: Faith Flanagan MD (units unknown) (unknown) (unknown) (no date) (unknown) (unknown) Visit Reasons: 15 wk OB (units unknown) (unknown) (unknown) (no date) (unknown) (unknown) Vitals (units unknown) (unknown) (unknown) (no date) (unknown) (unknown) Vitamins and i julio c, Diet and weight gain, Fish and mercury intake, Smoking, (units unknown) (unknown) (unknown) (no date) (unknown) (unknown) WG (units unknown) (unknown) (unknown) (no date) (unknown) (unknown) Weeks gestatio n:: 15 (units unknown) (unknown) (unknown) (no date) (unknown) (unknown) Weight 219 lb 8 oz ( units unknown) (unknown) (unknown) (no date) (unknown) (unknown) Will be having anatomy u/s through [facility]. 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 family with: (units unknown) (unknown) (unknown) (no date) (unknown) (unknown) at PP (units unknown) (unknown) (unknown) (no date) (unknown) (unknown) caffeine: Yes (<100mg/day) (units unknown) (unknown) (unknown) (no date) (unknown) (unknown) carbon monox detector in home: Yes (units unknown) (unknown) (unknown) (no date) (unknown) (unknown) caregiver/supp ort person: No (units unknown) (unknown) (unknown) (no date) (unknown) (unknown) cfDNA negative . It's a girl! (units unknown) (unknown) (unknown) (no date) (unknown) (unknown) connective tis norma d/o). 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 ) (units unknown) (unknown) (unknown) (no date) (unknown) (unknown) current occupational exposures/hazards: Yes (exposure in the building, but no (units unknown) (unknown) (unknown) (no date) (unknown) (unknown) daily servings fruits/ve-4 (units unknown) (unknown) (unknown) (no date) (unknown) (unknown) described, vis it schedule reviewed, ultrasounds policy reviewed, coverage 24 (units unknown) (unknown) (unknown) (no date) (unknown) (unknown) discussed, tuberculosis exposure discussed, CMV discussed, Toxoplasmosis (units unknown) (unknown) (unknown) (no date) (unknown) (unknown) do you feel sa fe at home: Yes (units unknown) (unknown) (unknown) (no date) (unknown) (unknown) duration: 30-4 5 minutes/day (units unknown) (unknown) (unknown) (no date) (unknown) (unknown) during the pas t year weight has: increased > 10 lbs (units unknown) (unknown) (unknown) (no date) (unknown) (unknown) education leve l: college (some college) (units unknown) (unknown) (unknown) (no date) (unknown) (unknown) fire extinguis her in home: Yes (units unknown) (unknown) (unknown) (no date) (unknown) (unknown) firearms in ho me: Yes (some locked up, not all) (units unknown) (unknown) (unknown) (no date) (unknown) (unknown) for genetic counseling. Likely needs echo. (units unknown) (unknown) (unknown) (no date) (unknown) (unknown) frequency: 3-4 times per week (units unknown) (unknown) (unknown) (no date) (unknown) (unknown) have occurred. If there are any questions, please contact the Medical Records (units unknown) (unknown) (unknown) (no date) (unknown) (unknown) helmet use: Yes (uni ts unknown) (unknown) (unknown) (no date) (unknown) (unknown) hours a day an d participation of father in care and office visits (units unknown) (unknown) (unknown) (no date) (unknown) (unknown) household memb ers: spouse and friend(s) (units unknown) (unknown) (unknown) (no date) (unknown) (unknown) housing: house (unit s unknown) (unknown) (unknown) (no date) (unknown) (unknown) inherited gene tic or chromosomal disorder (polycystic kidneys, Marfan's) (units unknown) (unknown) (unknown) (no date) (unknown) (unknown) irritability a nd other (constipation) (units unknown) (unknown) (unknown) (no date) (unknown) (unknown) lives independently: Yes (units unknown) (unknown) (unknown) (no date) (unknown) (unknown) marital status : (units unknown) (unknown) (unknown) (no date) (unknown) (unknown) may occur. 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 Please (units unknown) (unknown) (unknown) (no date) (unknown) (unknown) pets and anima ls: Yes (units unknown) (unknown) (unknown) (no date) (unknown) (unknown) precautions, Listeriosis prevention and Rubella Immunization (units unknown) (unknown) (unknown) (no date) (unknown) (unknown) prenat.vits,ca l,min -iron-folic 1 tab PO DAILY 05/05/22 [History Confirmed (units unknown) (unknown) (unknown) (no date) (unknown) (unknown) read the note carefully and recognize, using context, where these substitutions (units unknown) (unknown) (unknown) (no date) (unknown) (unknown) seatbelt use: always (units unknown) (unknown) (unknown) (no date) (unknown) (unknown) second hand exposure: Yes (roommate vapes) (units unknown) (unknown) (unknown) (no date) (unknown) (unknown) 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 Referral to [facility] placed (units unknown) (unknown) (unknown) (no date) (unknown) (unknown) software. 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 Cous in cystic fibrosis. -- Referral to [facility] for genetic counseling. (units unknown) (unknown) (unknown) (no date) (unknown) (unknown) tea, taking B6. 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 (units unknown) (unknown) (unknown) (no date) (unknown) (unknown) that [facility] may recommend additional testing as well. (units unknown) (unknown) (unknown) (no date) (unknown) (unknown) travel history : recent (domestic, [place]) (units unknown) (unknown) (unknown) (no date) (unknown) (unknown) water heater t emp set < 120 deg: Yes (units unknown) (unknown) (unknown) (no date) (unknown) (unknown) well-balanced diet: about half the time (units unknown) (unknown) (unknown) (no date) (unknown) (unknown) working smoke detector in home: Yes (units unknown) (unknown) Result panel 81 (unknown) (no date) (unknown) (unknown) (no value) (units unknown) (unknown) (unknown) (no date) (unknown) (unknown) (+8 lb 8 oz) 110/66 (units unknown) (unknown) (unknown) (no date) (unknown) (unknown) (+9 lb 8 oz) 140/86 (units unknown) (unknown) (unknown) (no date) (unknown) (unknown) (1) Polycystic kidney disease: (units unknown) (unknown) (unknown) (no date) (unknown) (unknown) (2) 15 weeks gestation of : (units unknown) (unknown) (unknown) (no date) (unknown) (unknown) Genetic Screening/Teratolog y Counseling - Includes patient, baby's father, or (units unknown) (unknown) (unknown) (no date) (unknown) (unknown) -?-?-?-?-?-?-? -?-?- ?-?-? (units unknown) (unknown) (unknown) (no date) (unknown) (unknown) 06/16/22 (units unknown) (unknown) (unknown) (no date) (unknown) (unknown) 07/14/22 1346 (units unknown) (unknown) (unknown) (no date) (unknown) (unknown) 07/14/22 (units unknown) (unknown) (unknown) (no date) (unknown) (unknown) 07/14/22] (units unknown) (unknown) (unknown) (no date) (unknown) (unknown) [id number] (units unknown) (unknown) (unknown) (no date) (unknown) (unknown) 12/29/22 Ultra sound #1 16w 0d (units unknown) (unknown) (unknown) (no date) (unknown) (unknown) 11w 5d 218 lb 8 oz ( units unknown) (unknown) (unknown) (no date) (unknown) (unknown) 125/70 (units unknown) (unknown) (unknown) (no date) (unknown) (unknown) 13:35 07/14/22 (unit s unknown) (unknown) (unknown) (no date) (unknown) (unknown) 13:46 (units unknown) (unknown) (unknown) (no date) (unknown) (unknown) 15w 5d 219 lb 8 oz ( units unknown) (unknown) (unknown) (no date) (unknown) (unknown) 4wks (units unknown) (unknown) (unknown) (no date) (unknown) (unknown) Abnormal lab v alues 1st trimester: discussed (units unknown) (unknown) (unknown) (no date) (unknown) (unknown) Acne (units unknown) (unknown) (unknown) (no date) (unknown) (unknown) Add'l Plan Details ( units unknown) (unknown) (unknown) (no date) (unknown) (unknown) Age/Sex: 22 / F Date of Service: (units unknown) (unknown) (unknown) (no date) (unknown) (unknown) Allergies (units unknown) (unknown) (unknown) (no date) (unknown) (unknown) [facility] (units unknown) (unknown) (unknown) (no date) (unknown) (unknown) [place] [id number] (units unknown) (unknown) (unknown) (no date) (unknown) (unknown) Aneuploidy Screening Offered: Declined (unsure, wants to discuss w/ ) (units unknown) (unknown) (unknown) (no date) (unknown) (unknown) Anticipated co urse of care: discussed (units unknown) (unknown) (unknown) (no date) (unknown) (unknown) Anxiety (units unknown) (unknown) (unknown) (no date) (unknown) (unknown) Arthritis (units unknown) (unknown) (unknown) (no date) (unknown) (unknown) Assessment and Plan (units unknown) (unknown) (unknown) (no date) (unknown) (unknown) Attending Dr: Faith Flanagan MD (units unknown) (unknown) (unknown) (no date) (unknown) (unknown) BMI 34.3 (units unknown) (unknown) (unknown) (no date) (unknown) (unknown) BP 140/86 125/70 (un its unknown) (unknown) (unknown) (no date) (unknown) (unknown) Plan/Preferences (units unknown) (unknown) (unknown) (no date) (unknown) (unknown) Planning (unit s unknown) (unknown) (unknown) (no date) (unknown) (unknown) Blood Pressure Location Rt brachial Rt brachial (units unknown) (unknown) (unknown) (no date) (unknown) (unknown) Blood transfusions?: yes (Never had but would accept) (units unknown) (unknown) (unknown) (no date) (unknown) (unknown) Caffeine use, Exercise and activity, work/environmental/ hazards, Sexual (units unknown) (unknown) (unknown) (no date) (unknown) (unknown) Childbirth Cla sses: discussed (units unknown) (unknown) (unknown) (no date) (unknown) (unknown) Current Estima te 12/31/22 Manual 15w 5d Final MOMO (units unknown) (unknown) (unknown) (no date) (unknown) (unknown) Current Pregna ncy History (units unknown) (unknown) (unknown) (no date) (unknown) (unknown) DNA (units unknown) (unknown) (unknown) (no date) (unknown) (unknown) : 1 Acct:[id number] (units unknown) (unknown) (unknown) (no date) (unknown) (unknown) Date of positi ve home test: 04/19/22 (units unknown) (unknown) (unknown) (no date) (unknown) (unknown) Date (units unknown) (unknown) (unknown) (no date) (unknown) (unknown) Dating u/s concordant with LMP. Keep MOMO 12/31/22. (units unknown) (unknown) (unknown) (no date) (unknown) (unknown) Denies over th e counter medications, Denies alcohol, Denies illicit drugs and (units unknown) (unknown) (unknown) (no date) (unknown) (unknown) Depression: discussed (units unknown) (unknown) (unknown) (no date) (unknown) (unknown) Dept at . (units unknown) (unknown) (unknown) (no date) (unknown) (unknown) Desires geneti c testing. Will see if cfDNA can be scheduled. Discussed (units unknown) (unknown) (unknown) (no date) (unknown) (unknown) Diet and Exercise (u nits unknown) (unknown) (unknown) (no date) (unknown) (unknown) Documented By: Faith Flanagan MD 07/14/22 1326 (units unknown) (unknown) (unknown) (no date) (unknown) (unknown) MOMO Calculator (unit s unknown) (unknown) (unknown) (no date) (unknown) (unknown) EGA Weight BP UGlucose (units unknown) (unknown) (unknown) (no date) (unknown) (unknown) Estimated Deli very Date Method Current (units unknown) (unknown) (unknown) (no date) (unknown) (unknown) Family History (Updated 05/05/22 @ 15:59 by Rebecca Polk RN) (units unknown) (unknown) (unknown) (no date) (unknown) (unknown) Family/Other Marfans syndrome (units unknown) (unknown) (unknown) (no date) (unknown) (unknown) Family/Other Marfans syndrome (units unknown) (unknown) (unknown) (no date) (unknown) (unknown) Family/Other Polycystic kidney disease (units unknown) (unknown) (unknown) (no date) (unknown) (unknown) Father of Baby : same (units unknown) (unknown) (unknown) (no date) (unknown) (unknown) First Trimeste r Education Checklist (units unknown) (unknown) (unknown) (no date) (unknown) (unknown) Genetic Screen ing + Counseling (units unknown) (unknown) (unknown) (no date) (unknown) (unknown) Genetic Screening (u nits unknown) (unknown) (unknown) (no date) (unknown) (unknown) Genetic polycy stic kidney disease; family Hx Marfan Syndrome (pt has no known (units unknown) (unknown) (unknown) (no date) (unknown) (unknown) Grandfather Marfans syndrome (units unknown) (unknown) (unknown) (no date) (unknown) (unknown) Grandfather Me ntal health problem (units unknown) (unknown) (unknown) (no date) (unknown) (unknown) Grandmother Lymphoma (units unknown) (unknown) (unknown) (no date) (unknown) (unknown) 1 Mult iple births 0 (units unknown) (unknown) (unknown) (no date) (unknown) (unknown) HIV risk evaluation: low risk (units unknown) (unknown) (unknown) (no date) (unknown) (unknown) Health Center Education (units unknown) (unknown) (unknown) (no date) (unknown) (unknown) Health center information: nature of practice discussed, personnel (units unknown) (unknown) (unknown) (no date) (unknown) (unknown) Height 5 ft 7 in (un its unknown) (unknown) (unknown) (no date) (unknown) (unknown) Hepatitis C ri sk evaluation: low risk (units unknown) (unknown) (unknown) (no date) (unknown) (unknown) History of Hepatitis B: No (units unknown) (unknown) (unknown) (no date) (unknown) (unknown) History of Hepatitis C: No (units unknown) (unknown) (unknown) (no date) (unknown) (unknown) History of rem oval of skin mole (units unknown) (unknown) (unknown) (no date) (unknown) (unknown) Hospital: [facility] (units unknown) (unknown) (unknown) (no date) (unknown) (unknown) Hx # Pregnancies 0 Elective abortions 0 (units unknown) (unknown) (unknown) (no date) (unknown) (unknown) Hx # Term Pregnancies 0 Ectopic pregnancies 0 (units unknown) (unknown) (unknown) (no date) (unknown) (unknown) will be adopted?: no (units unknown) (unknown) (unknown) (no date) (unknown) (unknown) Infection History (u nits unknown) (unknown) (unknown) (no date) (unknown) (unknown) Infectious Dis ease Education (units unknown) (unknown) (unknown) (no date) (unknown) (unknown) Infectious dis ease exposure: chicken pox immunity discussed, hepatitis risk (units unknown) (unknown) (unknown) (no date) (unknown) (unknown) Initial Weight : 210 lb (units unknown) (unknown) (unknown) (no date) (unknown) (unknown) Initials (units unknown) (unknown) (unknown) (no date) (unknown) (unknown) Intake Clinica l Staff (units unknown) (unknown) (unknown) (no date) (unknown) (unknown) Intake perform ed by: Chantelle Hernández (units unknown) (unknown) (unknown) (no date) (unknown) (unknown) Intake (units unknown) (unknown) (unknown) (no date) (unknown) (unknown) ROSALIE (units unknown) (unknown) (unknown) (no date) (unknown) (unknown) LGSIL on Pap s mear of cervix (units unknown) (unknown) (unknown) (no date) (unknown) (unknown) Likely needs f etal echo. (units unknown) (unknown) (unknown) (no date) (unknown) (unknown) Live with some one with TB or exposed to TB: No (units unknown) (unknown) (unknown) (no date) (unknown) (unknown) Loc: [facility] (units unknown) (unknown) (unknown) (no date) (unknown) (unknown) Marital status : (units unknown) (unknown) (unknown) (no date) (unknown) (unknown) Medical Histor y (Updated 06/16/22 @ 12:31 by Shaniqua Landry MA) (units unknown) (unknown) (unknown) (no date) (unknown) (unknown) Medications (units unknown) (unknown) (unknown) (no date) (unknown) (unknown) Mother Polycys tic kidney disease (units unknown) (unknown) (unknown) (no date) (unknown) (unknown) No Known Drug Allergies Allergy (Unverified 07/14/22 13:35) (units unknown) (unknown) (unknown) (no date) (unknown) (unknown) No no 156 absent (un its unknown) (unknown) (unknown) (no date) (unknown) (unknown) No no 158 absent (un its unknown) (unknown) (unknown) (no date) (unknown) (unknown) No significant cramping. Nausea is manageable - using bogdan mints and (units unknown) (unknown) (unknown) (no date) (unknown) (unknown) Notes (units unknown) (unknown) (unknown) (no date) (unknown) (unknown) Number of Maylin ng Children 0 (units unknown) (unknown) (unknown) (no date) (unknown) (unknown) Number of fetu ses:: Single (units unknown) (unknown) (unknown) (no date) (unknown) (unknown) Nutrition and weight gain counseling: special diet: discussed (units unknown) (unknown) (unknown) (no date) (unknown) (unknown) OB Office Visit (uni ts unknown) (unknown) (unknown) (no date) (unknown) (unknown) OB Visit Log (units unknown) (unknown) (unknown) (no date) (unknown) (unknown) On contr ol at conception?: No (units unknown) (unknown) (unknown) (no date) (unknown) (unknown) Other Estimate s 12/31/22 LMP (Certain) 15w 5d (units unknown) (unknown) (unknown) (no date) (unknown) (unknown) Oxygen Deliver y Method room air (units unknown) (unknown) (unknown) (no date) (unknown) (unknown) PFSH (units unknown) (unknown) (unknown) (no date) (unknown) (unknown) Pap LSIL 01/23 22, but no reflex HPV was run, no f/u done. 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 treated and cured) (units unknown) (unknown) (unknown) (no date) (unknown) (unknown) Partner histor y of genital herpes: Yes (units unknown) (unknown) (unknown) (no date) (unknown) (unknown) Partner: Willian Lopez (units unknown) (unknown) (unknown) (no date) (unknown) (unknown) Patient's age 35 years or older as of estimated date of delivery: No (units unknown) (unknown) (unknown) (no date) (unknown) (unknown) Patient: Colleen Lopez MR#: [id number] (units unknown) (unknown) (unknown) (no date) (unknown) (unknown) Client Reporting Associate: Masha (units unknown) (unknown) (unknown) (no date) (unknown) (unknown) Personal histo ry of STD: HPV (? no HPV actually run from pap) (units unknown) (unknown) (unknown) (no date) (unknown) (unknown) Personal histo ry of genital herpes: No (units unknown) (unknown) (unknown) (no date) (unknown) (unknown) Polycystic kid shannan disease (units unknown) (unknown) (unknown) (no date) (unknown) (unknown) Position Sitti ng Sitting (units unknown) (unknown) (unknown) (no date) (unknown) (unknown) History (u nits unknown) (unknown) (unknown) (no date) (unknown) (unknown) type :: First (units unknown) (unknown) (unknown) (no date) (unknown) (unknown) Education ( units unknown) (unknown) (unknown) (no date) (unknown) (unknown) Initi al Assessment (units unknown) (unknown) (unknown) (no date) (unknown) (unknown) Speci fic Issues/Plans (units unknown) (unknown) (unknown) (no date) (unknown) (unknown) Testi ng: discussed (units unknown) (unknown) (unknown) (no date) (unknown) (unknown) Visit (unit s unknown) (unknown) (unknown) (no date) (unknown) (unknown) educa tion packet: Child education/plan, symptoms, (units unknown) (unknown) (unknown) (no date) (unknown) (unknown) Primary Care Provider: DOD (units unknown) (unknown) (unknown) (no date) (unknown) (unknown) Primary Ob Provider: Faith Flanagan (units unknown) (unknown) (unknown) (no date) (unknown) (unknown) Prior GBS-Infe cted child: No (units unknown) (unknown) (unknown) (no date) (unknown) (unknown) Providers (units unknown) (unknown) (unknown) (no date) (unknown) (unknown) 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 No exposures for over a month. (units unknown) (unknown) (unknown) (no date) (unknown) (unknown) Pt with polycy stic kidney disease. No issues with kidney function. FOB's (units unknown) (unknown) (unknown) (no date) (unknown) (unknown) Pulse 83 (units unknown) (unknown) (unknown) (no date) (unknown) (unknown) Pulse Oximetry (%) 99 (units unknown) (unknown) (unknown) (no date) (unknown) (unknown) Pulse Source Monitor (units unknown) (unknown) (unknown) (no date) (unknown) (unknown) Rash or viral illness since last menstrual period: Yes (URI vs allergies (Covid (units unknown) (unknown) (unknown) (no date) (unknown) (unknown) Reason For Visit (un its unknown) (unknown) (unknown) (no date) (unknown) (unknown) Recent travel outside of country?: Yes ([place] only) (units unknown) (unknown) (unknown) (no date) (unknown) (unknown) Recurrent preg haven loss or a stillbirth: No (units unknown) (unknown) (unknown) (no date) (unknown) (unknown) Repeat BP 125/70 (un its unknown) (unknown) (unknown) (no date) (unknown) (unknown) 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), (units unknown) (unknown) (unknown) (no date) (unknown) (unknown) 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) and Reports Other (units unknown) (unknown) (unknown) (no date) (unknown) (unknown) 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) (units unknown) (unknown) (unknown) (no date) (unknown) (unknown) Safety (units unknown) (unknown) (unknown) (no date) (unknown) (unknown) Seasonal allergies ( units unknown) (unknown) (unknown) (no date) (unknown) (unknown) Signed By: <Electronically signed by Faith Flanagan MD> (units unknown) (unknown) (unknown) (no date) (unknown) (unknown) Signed (units unknown) (unknown) (unknown) (no date) (unknown) (unknown) Sister Depression (u nits unknown) (unknown) (unknown) (no date) (unknown) (unknown) Smoking Status : Former smoker (quit vaping 11/2021) (units unknown) (unknown) (unknown) (no date) (unknown) (unknown) Smoking/Tobacc o use: discussed (units unknown) (unknown) (unknown) (no date) (unknown) (unknown) Social History (unit s unknown) (unknown) (unknown) (no date) (unknown) (unknown) Status: Acute (units unknown) (unknown) (unknown) (no date) (unknown) (unknown) Support Person (s):: Willian (units unknown) (unknown) (unknown) (no date) (unknown) (unknown) Surgical Histo ry (Updated 05/05/22 @ 15:35 by Rebecca Polk RN) (units unknown) (unknown) (unknown) (no date) (unknown) (unknown) Surrogate ?: no (units unknown) (unknown) (unknown) (no date) (unknown) (unknown) Symptoms since LMP: Reports amenorrhea, nausea, fatigue, breast tenderness, (units unknown) (unknown) (unknown) (no date) (unknown) (unknown) Teratogen Expo sures since LMP/Conception: Denies prescription medications, (units unknown) (unknown) (unknown) (no date) (unknown) (unknown) Testing Education (u nits unknown) (unknown) (unknown) (no date) (unknown) (unknown) Testing educat ion completed: group B strep, Spina bifida testing and Cell Free (units unknown) (unknown) (unknown) (no date) (unknown) (unknown) This note may have been all or partially generated using voice recognition (units unknown) (unknown) (unknown) (no date) (unknown) (unknown) Tobacco + Subs tance Use (units unknown) (unknown) (unknown) (no date) (unknown) (unknown) Tobacco Status (unit s unknown) (unknown) (unknown) (no date) (unknown) (unknown) Travel, Seatbe lt use and Influenza vaccine (already had flu shot, Covid x2) (units unknown) (unknown) (unknown) (no date) (unknown) (unknown) Trimester:: 2n d Trimester (14-<28wks) (units unknown) (unknown) (unknown) (no date) (unknown) (unknown) Type(s) of exercise: walking (units unknown) (unknown) (unknown) (no date) (unknown) (unknown) UProtein Movem ent PreLabor FHR Fndl Ht Pres Edema Cerv Exam US/Comment Next Appt (units unknown) (unknown) (unknown) (no date) (unknown) (unknown) Varicella/chic rodrigue pox status: immunized (units unknown) (unknown) (unknown) (no date) (unknown) (unknown) Visit Date: 06/16/22 Last Updated by: Faith Flanagan MD (units unknown) (unknown) (unknown) (no date) (unknown) (unknown) Visit Date: 07/14/22 Last Updated by: Faith Flanagan MD (units unknown) (unknown) (unknown) (no date) (unknown) (unknown) Visit Reasons: 15 wk OB (units unknown) (unknown) (unknown) (no date) (unknown) (unknown) Vitals (units unknown) (unknown) (unknown) (no date) (unknown) (unknown) Vitamins and i julio c, Diet and weight gain, Fish and mercury intake, Smoking, (units unknown) (unknown) (unknown) (no date) (unknown) (unknown) WG (units unknown) (unknown) (unknown) (no date) (unknown) (unknown) Weeks gestatio n:: 15 (units unknown) (unknown) (unknown) (no date) (unknown) (unknown) Weight 219 lb 8 oz ( units unknown) (unknown) (unknown) (no date) (unknown) (unknown) Will be having anatomy u/s through [facility], August 04. 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 (units unknown) (unknown) (unknown) (no date) (unknown) (unknown) [place] teeth extracted () (units unknown) (unknown) (unknown) (no date) (unknown) (unknown) Zika virus exposure: No (units unknown) (unknown) (unknown) (no date) (unknown) (unknown) activity, X-ra y exposure, Medication use, Sauna/hot tub use, Dental care, (units unknown) (unknown) (unknown) (no date) (unknown) (unknown) alcohol intake : former (5-7 glasses of wine/week when not ) (units unknown) (unknown) (unknown) (no date) (unknown) (unknown) anyone in [facility] family with: (units unknown) (unknown) (unknown) (no date) (unknown) (unknown) at PP (units unknown) (unknown) (unknown) (no date) (unknown) (unknown) caffeine: Yes (<100mg/day) (units unknown) (unknown) (unknown) (no date) (unknown) (unknown) carbon monox detector in home: Yes (units unknown) (unknown) (unknown) (no date) (unknown) (unknown) caregiver/supp ort person: No (units unknown) (unknown) (unknown) (no date) (unknown) (unknown) cfDNA negative . It's a girl! (units unknown) (unknown) (unknown) (no date) (unknown) (unknown) connective tis norma d/o). 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 ) (units unknown) (unknown) (unknown) (no date) (unknown) (unknown) current occupational exposures/hazards: Yes (exposure in the building, but no (units unknown) (unknown) (unknown) (no date) (unknown) (unknown) daily servings fruits/ve-4 (units unknown) (unknown) (unknown) (no date) (unknown) (unknown) described, vis it schedule reviewed, ultrasounds policy reviewed, coverage 24 (units unknown) (unknown) (unknown) (no date) (unknown) (unknown) discussed, tuberculosis exposure discussed, CMV discussed, Toxoplasmosis (units unknown) (unknown) (unknown) (no date) (unknown) (unknown) do you feel sa fe at home: Yes (units unknown) (unknown) (unknown) (no date) (unknown) (unknown) duration: 30-4 5 minutes/day (units unknown) (unknown) (unknown) (no date) (unknown) (unknown) during the pas t year weight has: increased > 10 lbs (units unknown) (unknown) (unknown) (no date) (unknown) (unknown) education leve l: college (some college) (units unknown) (unknown) (unknown) (no date) (unknown) (unknown) fire extinguis her in home: Yes (units unknown) (unknown) (unknown) (no date) (unknown) (unknown) firearms in ho me: Yes (some locked up, not all) (units unknown) (unknown) (unknown) (no date) (unknown) (unknown) for genetic counseling. Likely needs echo. (units unknown) (unknown) (unknown) (no date) (unknown) (unknown) frequency: 3-4 times per week (units unknown) (unknown) (unknown) (no date) (unknown) (unknown) have occurred. If there are any questions, please contact the Medical Records (units unknown) (unknown) (unknown) (no date) (unknown) (unknown) helmet use: Yes (uni ts unknown) (unknown) (unknown) (no date) (unknown) (unknown) hours a day an d participation of father in care and office visits (units unknown) (unknown) (unknown) (no date) (unknown) (unknown) household memb ers: spouse and friend(s) (units unknown) (unknown) (unknown) (no date) (unknown) (unknown) housing: house (unit s unknown) (unknown) (unknown) (no date) (unknown) (unknown) inherited gene tic or chromosomal disorder (polycystic kidneys, Marfan's) (units unknown) (unknown) (unknown) (no date) (unknown) (unknown) irritability a nd other (constipation) (units unknown) (unknown) (unknown) (no date) (unknown) (unknown) lives independently: Yes (units unknown) (unknown) (unknown) (no date) (unknown) (unknown) marital status : (units unknown) (unknown) (unknown) (no date) (unknown) (unknown) may occur. 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 Please (units unknown) (unknown) (unknown) (no date) (unknown) (unknown) pets and anima ls: Yes (units unknown) (unknown) (unknown) (no date) (unknown) (unknown) precautions, Listeriosis prevention and Rubella Immunization (units unknown) (unknown) (unknown) (no date) (unknown) (unknown) prenat.vits,ca l,min -iron-folic 1 tab PO DAILY 05/05/22 [History Confirmed (units unknown) (unknown) (unknown) (no date) (unknown) (unknown) read the note carefully and recognize, using context, where these substitutions (units unknown) (unknown) (unknown) (no date) (unknown) (unknown) seatbelt use: always (units unknown) (unknown) (unknown) (no date) (unknown) (unknown) second hand exposure: Yes (roommate vapes) (units unknown) (unknown) (unknown) (no date) (unknown) (unknown) sister fr om hypoplastic left heart as an infant. Referral to [facility] placed (units unknown) (unknown) (unknown) (no date) (unknown) (unknown) software. 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 Cous in cystic fibrosis. -- Referral to [facility] for genetic counseling. (units unknown) (unknown) (unknown) (no date) (unknown) (unknown) tea, taking B6. 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 (units unknown) (unknown) (unknown) (no date) (unknown) (unknown) that [facility] may recommend additional testing as well. (units unknown) (unknown) (unknown) (no date) (unknown) (unknown) they plan on ordering echo. (units unknown) (unknown) (unknown) (no date) (unknown) (unknown) travel history : recent (domestic, [place]) (units unknown) (unknown) (unknown) (no date) (unknown) (unknown) water heater t emp set < 120 deg: Yes (units unknown) (unknown) (unknown) (no date) (unknown) (unknown) well-balanced diet: about half the time (units unknown) (unknown) (unknown) (no date) (unknown) (unknown) working smoke detector in home: Yes (units unknown) (unknown) Result panel 82 (unknown) (no date) (unknown) (unknown) (no value) (units unknown) (unknown) (unknown) (no date) (unknown) (unknown) (+8 lb 8 oz) 110/66 (units unknown) (unknown) (unknown) (no date) (unknown) (unknown) (+9 lb 8 oz) 140/86 (units unknown) (unknown) (unknown) (no date) (unknown) (unknown) (1) Polycystic kidney disease: (units unknown) (unknown) (unknown) (no date) (unknown) (unknown) (2) 19 weeks gestation of : (units unknown) (unknown) (unknown) (no date) (unknown) (unknown) Genetic Screening/Teratolog y Counseling - Includes patient, baby's father, or (units unknown) (unknown) (unknown) (no date) (unknown) (unknown) -?-?-?-?-?-?-? -?-?- ?-?-? (units unknown) (unknown) (unknown) (no date) (unknown) (unknown) 06/16/22 (units unknown) (unknown) (unknown) (no date) (unknown) (unknown) 07/14/22 (units unknown) (unknown) (unknown) (no date) (unknown) (unknown) [id number] (units unknown) (unknown) (unknown) (no date) (unknown) (unknown) 08/11/22 (units unknown) (unknown) (unknown) (no date) (unknown) (unknown) 12/29/22 Ultra sound #1 20w 0d (units unknown) (unknown) (unknown) (no date) (unknown) (unknown) 11w 5d 218 lb 8 oz ( units unknown) (unknown) (unknown) (no date) (unknown) (unknown) 125/70 (units unknown) (unknown) (unknown) (no date) (unknown) (unknown) 15w 5d 219 lb 8 oz ( units unknown) (unknown) (unknown) (no date) (unknown) (unknown) 19w 5d (units unknown) (unknown) (unknown) (no date) (unknown) (unknown) 4wks (units unknown) (unknown) (unknown) (no date) (unknown) (unknown) Abnormal lab v alues 1st trimester: discussed (units unknown) (unknown) (unknown) (no date) (unknown) (unknown) [place] (units unknown) (unknown) (unknown) (no date) (unknown) (unknown) Add'l Plan Details ( units unknown) (unknown) (unknown) (no date) (unknown) (unknown) Age/Sex: 22 / Date of Service: (units unknown) (unknown) (unknown) (no date) (unknown) (unknown) Allergies (units unknown) (unknown) (unknown) (no date) (unknown) (unknown) [facility] (units unknown) (unknown) (unknown) (no date) (unknown) (unknown) [place] [address] (units unknown) (unknown) (unknown) (no date) (unknown) (unknown) Aneuploidy Screening Offered: Declined (unsure, wants to discuss w/ ) (units unknown) (unknown) (unknown) (no date) (unknown) (unknown) Anticipated co urse of care: discussed (units unknown) (unknown) (unknown) (no date) (unknown) (unknown) Anxiety (units unknown) (unknown) (unknown) (no date) (unknown) (unknown) Arthritis (units unknown) (unknown) (unknown) (no date) (unknown) (unknown) Assessment and Plan (units unknown) (unknown) (unknown) (no date) (unknown) (unknown) Attending Dr: Faith Flanagan MD (units unknown) (unknown) (unknown) (no date) (unknown) (unknown) Plan/Preferences (units unknown) (unknown) (unknown) (no date) (unknown) (unknown) Planning (unit s unknown) (unknown) (unknown) (no date) (unknown) (unknown) Blood transfusions?: yes (Never had but would accept) (units unknown) (unknown) (unknown) (no date) (unknown) (unknown) Caffeine use, Exercise and activity, work/environmental/ hazards, Sexual (units unknown) (unknown) (unknown) (no date) (unknown) (unknown) Childbirth Cla sses: discussed (units unknown) (unknown) (unknown) (no date) (unknown) (unknown) Current Estima te 12/31/22 Manual 19w 5d Final MOMO (units unknown) (unknown) (unknown) (no date) (unknown) (unknown) Current Pregna ncy History (units unknown) (unknown) (unknown) (no date) (unknown) (unknown) DNA (units unknown) (unknown) (unknown) (no date) (unknown) (unknown) : 1 Acct:[id number] (units unknown) (unknown) (unknown) (no date) (unknown) (unknown) Date of positi ve home test: 04/19/22 (units unknown) (unknown) (unknown) (no date) (unknown) (unknown) Date (units unknown) (unknown) (unknown) (no date) (unknown) (unknown) Dating u/s concordant with LMP. Keep MOMO 12/31/22. (units unknown) (unknown) (unknown) (no date) (unknown) (unknown) Denies over th e counter medications, Denies alcohol, Denies illicit drugs and (units unknown) (unknown) (unknown) (no date) (unknown) (unknown) Depression: discussed (units unknown) (unknown) (unknown) (no date) (unknown) (unknown) Dept at . (units unknown) (unknown) (unknown) (no date) (unknown) (unknown) Desires geneti c testing. Will see if cfDNA can be scheduled. Discussed (units unknown) (unknown) (unknown) (no date) (unknown) (unknown) Diet and Exercise (u nits unknown) (unknown) (unknown) (no date) (unknown) (unknown) Documented By: Faith Flanagan MD 08/11/22 0814 (units unknown) (unknown) (unknown) (no date) (unknown) (unknown) Draft (units unknown) (unknown) (unknown) (no date) (unknown) (unknown) MOMO Calculator (unit s unknown) (unknown) (unknown) (no date) (unknown) (unknown) EGA Weight BP UGlucose (units unknown) (unknown) (unknown) (no date) (unknown) (unknown) Estimated Deli very Date Method Current (units unknown) (unknown) (unknown) (no date) (unknown) (unknown) Family History (Updated 05/05/22 @ 15:59 by Rebecca Polk RN) (units unknown) (unknown) (unknown) (no date) (unknown) (unknown) Family/Other Marfans syndrome (units unknown) (unknown) (unknown) (no date) (unknown) (unknown) Family/Other Marfans syndrome (units unknown) (unknown) (unknown) (no date) (unknown) (unknown) Family/Other Polycystic kidney disease (units unknown) (unknown) (unknown) (no date) (unknown) (unknown) Father of Baby : same (units unknown) (unknown) (unknown) (no date) (unknown) (unknown) First Trimeste r Education Checklist (units unknown) (unknown) (unknown) (no date) (unknown) (unknown) Genetic Screen ing + Counseling (units unknown) (unknown) (unknown) (no date) (unknown) (unknown) Genetic Screening (u nits unknown) (unknown) (unknown) (no date) (unknown) (unknown) Genetic polycy stic kidney disease; family Hx Marfan Syndrome (pt has no known (units unknown) (unknown) (unknown) (no date) (unknown) (unknown) Grandfather Marfans syndrome (units unknown) (unknown) (unknown) (no date) (unknown) (unknown) Grandfather Me ntal health problem (units unknown) (unknown) (unknown) (no date) (unknown) (unknown) Grandmother Lymphoma (units unknown) (unknown) (unknown) (no date) (unknown) (unknown) 1 Mult iple births 0 (units unknown) (unknown) (unknown) (no date) (unknown) (unknown) HIV risk evaluation: low risk (units unknown) (unknown) (unknown) (no date) (unknown) (unknown) Health Center Education (units unknown) (unknown) (unknown) (no date) (unknown) (unknown) Health center information: nature of practice discussed, personnel (units unknown) (unknown) (unknown) (no date) (unknown) (unknown) Hepatitis C ri sk evaluation: low risk (units unknown) (unknown) (unknown) (no date) (unknown) (unknown) History of Hepatitis B: No (units unknown) (unknown) (unknown) (no date) (unknown) (unknown) History of Hepatitis C: No (units unknown) (unknown) (unknown) (no date) (unknown) (unknown) History of rem oval of skin mole (units unknown) (unknown) (unknown) (no date) (unknown) (unknown) Hospital: [facility] (units unknown) (unknown) (unknown) (no date) (unknown) (unknown) Hx # Pregnancies 0 Elective abortions 0 (units unknown) (unknown) (unknown) (no date) (unknown) (unknown) Hx # Term Pregnancies 0 Ectopic pregnancies 0 (units unknown) (unknown) (unknown) (no date) (unknown) (unknown) Infant will be adopted?: no (units unknown) (unknown) (unknown) (no date) (unknown) (unknown) Infection History (u nits unknown) (unknown) (unknown) (no date) (unknown) (unknown) Infectious Dis ease Education (units unknown) (unknown) (unknown) (no date) (unknown) (unknown) Infectious dis ease exposure: chicken pox immunity discussed, hepatitis risk (units unknown) (unknown) (unknown) (no date) (unknown) (unknown) Initial Weight : 210 lb (units unknown) (unknown) (unknown) (no date) (unknown) (unknown) Initials (units unknown) (unknown) (unknown) (no date) (unknown) (unknown) Intake (units unknown) (unknown) (unknown) (no date) (unknown) (unknown) ROSALIE (units unknown) (unknown) (unknown) (no date) (unknown) (unknown) LGSIL on Pap s mear of cervix (units unknown) (unknown) (unknown) (no date) (unknown) (unknown) Likely needs f etal echo. (units unknown) (unknown) (unknown) (no date) (unknown) (unknown) Live with some one with TB or exposed to TB: No (units unknown) (unknown) (unknown) (no date) (unknown) (unknown) Loc: [facility] (units unknown) (unknown) (unknown) (no date) (unknown) (unknown) Marital status : (units unknown) (unknown) (unknown) (no date) (unknown) (unknown) Medical Histor y (Updated 06/16/22 @ 12:31 by Shaniqua Landry MA) (units unknown) (unknown) (unknown) (no date) (unknown) (unknown) Mother Polycys tic kidney disease (units unknown) (unknown) (unknown) (no date) (unknown) (unknown) No Known Drug Allergies Allergy (Unverified 07/14/22 13:35) (units unknown) (unknown) (unknown) (no date) (unknown) (unknown) No no 156 absent (un its unknown) (unknown) (unknown) (no date) (unknown) (unknown) No no 158 absent (un its unknown) (unknown) (unknown) (no date) (unknown) (unknown) No significant cramping. Nausea is manageable - using bogdan mints and (units unknown) (unknown) (unknown) (no date) (unknown) (unknown) Notes (units unknown) (unknown) (unknown) (no date) (unknown) (unknown) Number of Maylin ng Children 0 (units unknown) (unknown) (unknown) (no date) (unknown) (unknown) Number of fetu ses:: Single (units unknown) (unknown) (unknown) (no date) (unknown) (unknown) Nutrition and weight gain counseling: special diet: discussed (units unknown) (unknown) (unknown) (no date) (unknown) (unknown) OB Office Visit (uni ts unknown) (unknown) (unknown) (no date) (unknown) (unknown) OB Visit Log (units unknown) (unknown) (unknown) (no date) (unknown) (unknown) On contr ol at conception?: No (units unknown) (unknown) (unknown) (no date) (unknown) (unknown) Other Estimate s 12/31/22 LMP (Certain) 19w 5d (units unknown) (unknown) (unknown) (no date) (unknown) (unknown) PFSH (units unknown) (unknown) (unknown) (no date) (unknown) (unknown) Pap LSIL 10/20 22, but no reflex HPV was run, no f/u done. 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 treated and cured) (units unknown) (unknown) (unknown) (no date) (unknown) (unknown) Partner histor y of genital herpes: Yes (units unknown) (unknown) (unknown) (no date) (unknown) (unknown) Partner: Willian Lopez (units unknown) (unknown) (unknown) (no date) (unknown) (unknown) Patient's age 35 years or older as of estimated date of delivery: No (units unknown) (unknown) (unknown) (no date) (unknown) (unknown) Patient: Colleen Lopez MR#: [id number] (units unknown) (unknown) (unknown) (no date) (unknown) (unknown) Client Reporting Associate: Masha (units unknown) (unknown) (unknown) (no date) (unknown) (unknown) Personal histo ry of STD: HPV (? no HPV actually run from pap) (units unknown) (unknown) (unknown) (no date) (unknown) (unknown) Personal histo ry of genital herpes: No (units unknown) (unknown) (unknown) (no date) (unknown) (unknown) Polycystic kid shannan disease (units unknown) (unknown) (unknown) (no date) (unknown) (unknown) History (u nits unknown) (unknown) (unknown) (no date) (unknown) (unknown) type :: First (units unknown) (unknown) (unknown) (no date) (unknown) (unknown) Education ( units unknown) (unknown) (unknown) (no date) (unknown) (unknown) Initi al Assessment (units unknown) (unknown) (unknown) (no date) (unknown) (unknown) Speci fic Issues/Plans (units unknown) (unknown) (unknown) (no date) (unknown) (unknown) Testi ng: discussed (units unknown) (unknown) (unknown) (no date) (unknown) (unknown) Visit (unit s unknown) (unknown) (unknown) (no date) (unknown) (unknown) educa tion packet: Child education/plan, symptoms, (units unknown) (unknown) (unknown) (no date) (unknown) (unknown) Primary Care Provider: KELLEN (units unknown) (unknown) (unknown) (no date) (unknown) (unknown) Primary Ob Provider: Faith Flanagan (units unknown) (unknown) (unknown) (no date) (unknown) (unknown) Prior GBS-Infe cted child: No (units unknown) (unknown) (unknown) (no date) (unknown) (unknown) Providers (units unknown) (unknown) (unknown) (no date) (unknown) (unknown) 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 No exposures for over a month. (units unknown) (unknown) (unknown) (no date) (unknown) (unknown) Pt with polycy stic kidney disease. No issues with kidney function. FOB's (units unknown) (unknown) (unknown) (no date) (unknown) (unknown) Rash or viral illness since last menstrual period: Yes (URI vs allergies (Covid (units unknown) (unknown) (unknown) (no date) (unknown) (unknown) Reason For Visit (un its unknown) (unknown) (unknown) (no date) (unknown) (unknown) Recent travel outside of country?: Yes ([place] only) (units unknown) (unknown) (unknown) (no date) (unknown) (unknown) Recurrent preg haven loss or a stillbirth: No (units unknown) (unknown) (unknown) (no date) (unknown) (unknown) Repeat BP 125/70 (un its unknown) (unknown) (unknown) (no date) (unknown) (unknown) 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), (units unknown) (unknown) (unknown) (no date) (unknown) (unknown) 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) and Reports Other (units unknown) (unknown) (unknown) (no date) (unknown) (unknown) 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) (units unknown) (unknown) (unknown) (no date) (unknown) (unknown) Safety (units unknown) (unknown) (unknown) (no date) (unknown) (unknown) Seasonal allergies ( units unknown) (unknown) (unknown) (no date) (unknown) (unknown) Signed By: (units unknown) (unknown) (unknown) (no date) (unknown) (unknown) Sister Depression (u nits unknown) (unknown) (unknown) (no date) (unknown) (unknown) Smoking Status : Former smoker (quit vaping 11/2021) (units unknown) (unknown) (unknown) (no date) (unknown) (unknown) Smoking/Tobacc o use: discussed (units unknown) (unknown) (unknown) (no date) (unknown) (unknown) Social History (unit s unknown) (unknown) (unknown) (no date) (unknown) (unknown) Status: Acute (units unknown) (unknown) (unknown) (no date) (unknown) (unknown) Support Person (s):: Willian (units unknown) (unknown) (unknown) (no date) (unknown) (unknown) Surgical Histo ry (Updated 05/05/22 @ 15:35 by Rebecca Polk RN) (units unknown) (unknown) (unknown) (no date) (unknown) (unknown) Surrogate ?: no (units unknown) (unknown) (unknown) (no date) (unknown) (unknown) Symptoms since LMP: Reports amenorrhea, nausea, fatigue, breast tenderness, (units unknown) (unknown) (unknown) (no date) (unknown) (unknown) Teratogen Expo sures since LMP/Conception: Denies prescription medications, (units unknown) (unknown) (unknown) (no date) (unknown) (unknown) Testing Education (u nits unknown) (unknown) (unknown) (no date) (unknown) (unknown) Testing educat ion completed: group B strep, Spina bifida testing and Cell Free (units unknown) (unknown) (unknown) (no date) (unknown) (unknown) This note may have been all or partially generated using voice recognition (units unknown) (unknown) (unknown) (no date) (unknown) (unknown) Tobacco + Subs tance Use (units unknown) (unknown) (unknown) (no date) (unknown) (unknown) Tobacco Status (unit s unknown) (unknown) (unknown) (no date) (unknown) (unknown) Travel, Seatbe lt use and Influenza vaccine (already had flu shot, Covid x2) (units unknown) (unknown) (unknown) (no date) (unknown) (unknown) Type(s) of exercise: walking (units unknown) (unknown) (unknown) (no date) (unknown) (unknown) UProtein Movem ent PreLabor FHR Fndl Ht Pres Edema Cerv Exam US/Comment Next Appt (units unknown) (unknown) (unknown) (no date) (unknown) (unknown) Varicella/chic rodrigue pox status: immunized (units unknown) (unknown) (unknown) (no date) (unknown) (unknown) Visit Date: 06/16/22 Last Updated by: Faith Flanagan MD (units unknown) (unknown) (unknown) (no date) (unknown) (unknown) Visit Date: 07/14/22 Last Updated by: Faith Flanagan MD (units unknown) (unknown) (unknown) (no date) (unknown) (unknown) Visit Reasons: 20 wk ob (units unknown) (unknown) (unknown) (no date) (unknown) (unknown) Vitamins and i julio c, Diet and weight gain, Fish and mercury intake, Smoking, (units unknown) (unknown) (unknown) (no date) (unknown) (unknown) WG (units unknown) (unknown) (unknown) (no date) (unknown) (unknown) [facility] 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 (units unknown) (unknown) (unknown) (no date) (unknown) (unknown) [place] teeth extracted () (units unknown) (unknown) (unknown) (no date) (unknown) (unknown) Zika virus exposure: No (units unknown) (unknown) (unknown) (no date) (unknown) (unknown) activity, X-ra y exposure, Medication use, Sauna/hot tub use, Dental care, (units unknown) (unknown) (unknown) (no date) (unknown) (unknown) alcohol intake : former (5-7 glasses of wine/week when not ) (units unknown) (unknown) (unknown) (no date) (unknown) (unknown) anyone in ei er family with: (units unknown) (unknown) (unknown) (no date) (unknown) (unknown) at PP (units unknown) (unknown) (unknown) (no date) (unknown) (unknown) caffeine: Yes (<100mg/day) (units unknown) (unknown) (unknown) (no date) (unknown) (unknown) carbon monox detector in home: Yes (units unknown) (unknown) (unknown) (no date) (unknown) (unknown) caregiver/supp ort person: No (units unknown) (unknown) (unknown) (no date) (unknown) (unknown) cfDNA negative . It's a girl! (units unknown) (unknown) (unknown) (no date) (unknown) (unknown) connective tis norma d/o). 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 ) (units unknown) (unknown) (unknown) (no date) (unknown) (unknown) current occupational exposures/hazards: Yes (exposure in the building, but no (units unknown) (unknown) (unknown) (no date) (unknown) (unknown) daily servings fruits/ve-4 (units unknown) (unknown) (unknown) (no date) (unknown) (unknown) described, vis it schedule reviewed, ultrasounds policy reviewed, coverage 24 (units unknown) (unknown) (unknown) (no date) (unknown) (unknown) discussed, tuberculosis exposure discussed, CMV discussed, Toxoplasmosis (units unknown) (unknown) (unknown) (no date) (unknown) (unknown) do you feel sa fe at home: Yes (units unknown) (unknown) (unknown) (no date) (unknown) (unknown) duration: 30-4 5 minutes/day (units unknown) (unknown) (unknown) (no date) (unknown) (unknown) during the pas t year weight has: increased > 10 lbs (units unknown) (unknown) (unknown) (no date) (unknown) (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 (units unknown) (unknown) (unknown) (no date) (unknown) (unknown) education leve l: college (some college) (units unknown) (unknown) (unknown) (no date) (unknown) (unknown) fire extinguis her in home: Yes (units unknown) (unknown) (unknown) (no date) (unknown) (unknown) firearms in ho me: Yes (some locked up, not all) (units unknown) (unknown) (unknown) (no date) (unknown) (unknown) for genetic counseling. Likely needs echo. (units unknown) (unknown) (unknown) (no date) (unknown) (unknown) frequency: 3-4 times per week (units unknown) (unknown) (unknown) (no date) (unknown) (unknown) have occurred. If there are any questions, please contact the Medical Records (units unknown) (unknown) (unknown) (no date) (unknown) (unknown) helmet use: Yes (uni ts unknown) (unknown) (unknown) (no date) (unknown) (unknown) hours a day an d participation of father in care and office visits (units unknown) (unknown) (unknown) (no date) (unknown) (unknown) household memb ers: spouse and friend(s) (units unknown) (unknown) (unknown) (no date) (unknown) (unknown) housing: house (unit s unknown) (unknown) (unknown) (no date) (unknown) (unknown) inherited gene tic or chromosomal disorder (polycystic kidneys, Marfan's) (units unknown) (unknown) (unknown) (no date) (unknown) (unknown) irritability a nd other (constipation) (units unknown) (unknown) (unknown) (no date) (unknown) (unknown) lives independently: Yes (units unknown) (unknown) (unknown) (no date) (unknown) (unknown) marital status : (units unknown) (unknown) (unknown) (no date) (unknown) (unknown) may occur. 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 Please (units unknown) (unknown) (unknown) (no date) (unknown) (unknown) pets and anima ls: Yes (units unknown) (unknown) (unknown) (no date) (unknown) (unknown) precautions, Listeriosis prevention and Rubella Immunization (units unknown) (unknown) (unknown) (no date) (unknown) (unknown) read the note carefully and recognize, using context, where these substitutions (units unknown) (unknown) (unknown) (no date) (unknown) (unknown) seatbelt use: always (units unknown) (unknown) (unknown) (no date) (unknown) (unknown) second hand exposure: Yes (roommate vapes) (units unknown) (unknown) (unknown) (no date) (unknown) (unknown) 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 Referral to [facility] placed (units unknown) (unknown) (unknown) (no date) (unknown) (unknown) software. 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 Cous in cystic fibrosis. -- Referral to [facility] for genetic counseling. (units unknown) (unknown) (unknown) (no date) (unknown) (unknown) tea, taking B6. (uni ts unknown) (unknown) (unknown) (no date) (unknown) (unknown) that [facility] may recommend additional testing as well. (units unknown) (unknown) (unknown) (no date) (unknown) (unknown) they plan on ordering echo. (units unknown) (unknown) (unknown) (no date) (unknown) (unknown) travel history : recent (domestic, [place]) (units unknown) (unknown) (unknown) (no date) (unknown) (unknown) water heater t emp set < 120 deg: Yes (units unknown) (unknown) (unknown) (no date) (unknown) (unknown) well-balanced diet: about half the time (units unknown) (unknown) (unknown) (no date) (unknown) (unknown) working smoke detector in home: Yes (units unknown) (unknown) Result panel 83 (unknown) (no date) (unknown) (unknown) (no value) (units unknown) (unknown) (unknown) (no date) (unknown) (unknown) (+16 lb 8 oz) 136/66 (units unknown) (unknown) (unknown) (no date) (unknown) (unknown) (+8 lb 8 oz) 110/66 (units unknown) (unknown) (unknown) (no date) (unknown) (unknown) (+9 lb 8 oz) 140/86 (units unknown) (unknown) (unknown) (no date) (unknown) (unknown) (1) Polycystic kidney disease: (units unknown) (unknown) (unknown) (no date) (unknown) (unknown) (2) 19 weeks gestation of : (units unknown) (unknown) (unknown) (no date) (unknown) (unknown) Genetic Screening/Teratolog y Counseling - Includes patient, baby's father, or (units unknown) (unknown) (unknown) (no date) (unknown) (unknown) -?-?-?-?-?-?-? -?-?- ?-?-? (units unknown) (unknown) (unknown) (no date) (unknown) (unknown) 06/16/22 (units unknown) (unknown) (unknown) (no date) (unknown) (unknown) 07/14/22 (units unknown) (unknown) (unknown) (no date) (unknown) (unknown) [id number] (units unknown) (unknown) (unknown) (no date) (unknown) (unknown) 08/11/22 (units unknown) (unknown) (unknown) (no date) (unknown) (unknown) 08/11/22] (units unknown) (unknown) (unknown) (no date) (unknown) (unknown) 12/29/22 Ultra sound #1 20w 0d (units unknown) (unknown) (unknown) (no date) (unknown) (unknown) 11:18 (units unknown) (unknown) (unknown) (no date) (unknown) (unknown) 11w 5d 218 lb 8 oz ( units unknown) (unknown) (unknown) (no date) (unknown) (unknown) 125/70 (units unknown) (unknown) (unknown) (no date) (unknown) (unknown) 15w 5d 219 lb 8 oz ( units unknown) (unknown) (unknown) (no date) (unknown) (unknown) 19w 5d 226 lb 8 oz ( units unknown) (unknown) (unknown) (no date) (unknown) (unknown) 4wks (units unknown) (unknown) (unknown) (no date) (unknown) (unknown) Abnormal lab v alues 1st trimester: discussed (units unknown) (unknown) (unknown) (no date) (unknown) (unknown) [place]ne (units unknown) (unknown) (unknown) (no date) (unknown) (unknown) Add'l Plan Details ( units unknown) (unknown) (unknown) (no date) (unknown) (unknown) Age/Sex: 22 / F Date of Service: (units unknown) (unknown) (unknown) (no date) (unknown) (unknown) Allergies (units unknown) (unknown) (unknown) (no date) (unknown) (unknown) [facility] (units unknown) (unknown) (unknown) (no date) (unknown) (unknown) [place] [address] (units unknown) (unknown) (unknown) (no date) (unknown) (unknown) Aneuploidy Screening Offered: Declined (unsure, wants to discuss w/ ) (units unknown) (unknown) (unknown) (no date) (unknown) (unknown) Anticipated co urse of care: discussed (units unknown) (unknown) (unknown) (no date) (unknown) (unknown) Anxiety (units unknown) (unknown) (unknown) (no date) (unknown) (unknown) Arthritis (units unknown) (unknown) (unknown) (no date) (unknown) (unknown) Assessment and Plan (units unknown) (unknown) (unknown) (no date) (unknown) (unknown) Attending Dr: Faith Flanagan MD (units unknown) (unknown) (unknown) (no date) (unknown) (unknown) BMI 35.4 (units unknown) (unknown) (unknown) (no date) (unknown) (unknown) BP 136/66 (units unknown) (unknown) (unknown) (no date) (unknown) (unknown) Plan/Preferences (units unknown) (unknown) (unknown) (no date) (unknown) (unknown) Planning (unit s unknown) (unknown) (unknown) (no date) (unknown) (unknown) Blood Pressure Location Rt brachial (units unknown) (unknown) (unknown) (no date) (unknown) (unknown) Blood transfusions?: yes (Never had but would accept) (units unknown) (unknown) (unknown) (no date) (unknown) (unknown) Caffeine use, Exercise and activity, work/environmental/ hazards, Sexual (units unknown) (unknown) (unknown) (no date) (unknown) (unknown) Childbirth Cla sses: discussed (units unknown) (unknown) (unknown) (no date) (unknown) (unknown) Current Estima te 12/31/22 Manual 19w 5d Final MOMO (units unknown) (unknown) (unknown) (no date) (unknown) (unknown) Current Pregna ncy History (units unknown) (unknown) (unknown) (no date) (unknown) (unknown) DNA (units unknown) (unknown) (unknown) (no date) (unknown) (unknown) : 1 Acct:[id number] (units unknown) (unknown) (unknown) (no date) (unknown) (unknown) Date of positi ve home test: 04/19/22 (units unknown) (unknown) (unknown) (no date) (unknown) (unknown) Date (units unknown) (unknown) (unknown) (no date) (unknown) (unknown) Dating u/s concordant with LMP. Keep MOMO 12/31/22. (units unknown) (unknown) (unknown) (no date) (unknown) (unknown) Denies over th e counter medications, Denies alcohol, Denies illicit drugs and (units unknown) (unknown) (unknown) (no date) (unknown) (unknown) Depression: discussed (units unknown) (unknown) (unknown) (no date) (unknown) (unknown) Dept at . (units unknown) (unknown) (unknown) (no date) (unknown) (unknown) Desires geneti c testing. Will see if cfDNA can be scheduled. Discussed (units unknown) (unknown) (unknown) (no date) (unknown) (unknown) Diet and Exercise (u nits unknown) (unknown) (unknown) (no date) (unknown) (unknown) Documented By: Faith Flanagan MD 08/11/22 0814 (units unknown) (unknown) (unknown) (no date) (unknown) (unknown) Draft (units unknown) (unknown) (unknown) (no date) (unknown) (unknown) MOMO Calculator (unit s unknown) (unknown) (unknown) (no date) (unknown) (unknown) EGA Weight BP UGlucose (units unknown) (unknown) (unknown) (no date) (unknown) (unknown) Estimated Deli very Date Method Current (units unknown) (unknown) (unknown) (no date) (unknown) (unknown) Family History (Updated 05/05/22 @ 15:59 by Rebecca Polk RN) (units unknown) (unknown) (unknown) (no date) (unknown) (unknown) Family/Other Marfans syndrome (units unknown) (unknown) (unknown) (no date) (unknown) (unknown) Family/Other Marfans syndrome (units unknown) (unknown) (unknown) (no date) (unknown) (unknown) Family/Other Polycystic kidney disease (units unknown) (unknown) (unknown) (no date) (unknown) (unknown) Father of Baby : same (units unknown) (unknown) (unknown) (no date) (unknown) (unknown) First Trimeste r Education Checklist (units unknown) (unknown) (unknown) (no date) (unknown) (unknown) Genetic Screen ing + Counseling (units unknown) (unknown) (unknown) (no date) (unknown) (unknown) Genetic Screening (u nits unknown) (unknown) (unknown) (no date) (unknown) (unknown) Genetic polycy stic kidney disease; family Hx Marfan Syndrome (pt has no known (units unknown) (unknown) (unknown) (no date) (unknown) (unknown) Grandfather Marfans syndrome (units unknown) (unknown) (unknown) (no date) (unknown) (unknown) Grandfather Me ntal health problem (units unknown) (unknown) (unknown) (no date) (unknown) (unknown) Grandmother Lymphoma (units unknown) (unknown) (unknown) (no date) (unknown) (unknown) 1 Mult iple births 0 (units unknown) (unknown) (unknown) (no date) (unknown) (unknown) HIV risk evaluation: low risk (units unknown) (unknown) (unknown) (no date) (unknown) (unknown) Health Center Education (units unknown) (unknown) (unknown) (no date) (unknown) (unknown) Health center information: nature of practice discussed, personnel (units unknown) (unknown) (unknown) (no date) (unknown) (unknown) Height 5 ft 7 in (un its unknown) (unknown) (unknown) (no date) (unknown) (unknown) Hepatitis C ri sk evaluation: low risk (units unknown) (unknown) (unknown) (no date) (unknown) (unknown) History of Hepatitis B: No (units unknown) (unknown) (unknown) (no date) (unknown) (unknown) History of Hepatitis C: No (units unknown) (unknown) (unknown) (no date) (unknown) (unknown) History of rem oval of skin mole (units unknown) (unknown) (unknown) (no date) (unknown) (unknown) Hospital: [facility] (units unknown) (unknown) (unknown) (no date) (unknown) (unknown) Hx # Pregnancies 0 Elective abortions 0 (units unknown) (unknown) (unknown) (no date) (unknown) (unknown) Hx # Term Pregnancies 0 Ectopic pregnancies 0 (units unknown) (unknown) (unknown) (no date) (unknown) (unknown) Infant will be adopted?: no (units unknown) (unknown) (unknown) (no date) (unknown) (unknown) Infection History (u nits unknown) (unknown) (unknown) (no date) (unknown) (unknown) Infectious Dis ease Education (units unknown) (unknown) (unknown) (no date) (unknown) (unknown) Infectious dis ease exposure: chicken pox immunity discussed, hepatitis risk (units unknown) (unknown) (unknown) (no date) (unknown) (unknown) Initial Weight : 210 lb (units unknown) (unknown) (unknown) (no date) (unknown) (unknown) Initials (units unknown) (unknown) (unknown) (no date) (unknown) (unknown) Intake Clinica l Staff (units unknown) (unknown) (unknown) (no date) (unknown) (unknown) Intake perform ed by: Chantelle Hernández (units unknown) (unknown) (unknown) (no date) (unknown) (unknown) Intake (units unknown) (unknown) (unknown) (no date) (unknown) (unknown) ROSALIE (units unknown) (unknown) (unknown) (no date) (unknown) (unknown) LGSIL on Pap s mear of cervix (units unknown) (unknown) (unknown) (no date) (unknown) (unknown) Likely needs f etal echo. (units unknown) (unknown) (unknown) (no date) (unknown) (unknown) Live with some one with TB or exposed to TB: No (units unknown) (unknown) (unknown) (no date) (unknown) (unknown) Loc: [facility] (units unknown) (unknown) (unknown) (no date) (unknown) (unknown) Marital status : (units unknown) (unknown) (unknown) (no date) (unknown) (unknown) Medical Histor y (Updated 06/16/22 @ 12:31 by Shaniqua Landry MA) (units unknown) (unknown) (unknown) (no date) (unknown) (unknown) Medications (units unknown) (unknown) (unknown) (no date) (unknown) (unknown) Mother Polycys tic kidney disease (units unknown) (unknown) (unknown) (no date) (unknown) (unknown) No Known Drug Allergies Allergy (Unverified 08/11/22 11:19) (units unknown) (unknown) (unknown) (no date) (unknown) (unknown) No no 156 absent (un its unknown) (unknown) (unknown) (no date) (unknown) (unknown) No no 158 absent (un its unknown) (unknown) (unknown) (no date) (unknown) (unknown) No significant cramping. Nausea is manageable - using bogdan mints and (units unknown) (unknown) (unknown) (no date) (unknown) (unknown) Notes (units unknown) (unknown) (unknown) (no date) (unknown) (unknown) Number of Maylin ng Children 0 (units unknown) (unknown) (unknown) (no date) (unknown) (unknown) Number of fetu ses:: Single (units unknown) (unknown) (unknown) (no date) (unknown) (unknown) Nutrition and weight gain counseling: special diet: discussed (units unknown) (unknown) (unknown) (no date) (unknown) (unknown) OB Office Visit (uni ts unknown) (unknown) (unknown) (no date) (unknown) (unknown) OB Visit Log (units unknown) (unknown) (unknown) (no date) (unknown) (unknown) On contr ol at conception?: No (units unknown) (unknown) (unknown) (no date) (unknown) (unknown) Other Estimate s 12/31/22 LMP (Certain) 19w 5d (units unknown) (unknown) (unknown) (no date) (unknown) (unknown) Oxygen Deliver y Method room air (units unknown) (unknown) (unknown) (no date) (unknown) (unknown) PFSH (units unknown) (unknown) (unknown) (no date) (unknown) (unknown) Pap LSIL 01/23 22, but no reflex HPV was run, no f/u done. 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 treated and cured) (units unknown) (unknown) (unknown) (no date) (unknown) (unknown) Partner histor y of genital herpes: Yes (units unknown) (unknown) (unknown) (no date) (unknown) (unknown) Partner: Willian Lopez (units unknown) (unknown) (unknown) (no date) (unknown) (unknown) Patient's age 35 years or older as of estimated date of delivery: No (units unknown) (unknown) (unknown) (no date) (unknown) (unknown) Patient: Colleen Lopez MR#: [id number] (units unknown) (unknown) (unknown) (no date) (unknown) (unknown) Client Reporting Associate: Masha (units unknown) (unknown) (unknown) (no date) (unknown) (unknown) Personal histo ry of STD: HPV (? no HPV actually run from pap) (units unknown) (unknown) (unknown) (no date) (unknown) (unknown) Personal histo ry of genital herpes: No (units unknown) (unknown) (unknown) (no date) (unknown) (unknown) Polycystic kid shannan disease (units unknown) (unknown) (unknown) (no date) (unknown) (unknown) Position Sitting (un its unknown) (unknown) (unknown) (no date) (unknown) (unknown) History (u nits unknown) (unknown) (unknown) (no date) (unknown) (unknown) type :: First (units unknown) (unknown) (unknown) (no date) (unknown) (unknown) Education ( units unknown) (unknown) (unknown) (no date) (unknown) (unknown) Initi al Assessment (units unknown) (unknown) (unknown) (no date) (unknown) (unknown) Speci fic Issues/Plans (units unknown) (unknown) (unknown) (no date) (unknown) (unknown) Testi ng: discussed (units unknown) (unknown) (unknown) (no date) (unknown) (unknown) Visit (unit s unknown) (unknown) (unknown) (no date) (unknown) (unknown) educa tion packet: Child education/plan, symptoms, (units unknown) (unknown) (unknown) (no date) (unknown) (unknown) Primary Care Provider: DOD (units unknown) (unknown) (unknown) (no date) (unknown) (unknown) Primary Ob Provider: Faith Flanagan (units unknown) (unknown) (unknown) (no date) (unknown) (unknown) Prior GBS-Infe cted child: No (units unknown) (unknown) (unknown) (no date) (unknown) (unknown) Providers (units unknown) (unknown) (unknown) (no date) (unknown) (unknown) 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 No exposures for over a month. (units unknown) (unknown) (unknown) (no date) (unknown) (unknown) Pt with polycy stic kidney disease. No issues with kidney function. FOB's (units unknown) (unknown) (unknown) (no date) (unknown) (unknown) Pulse 58 L (units unknown) (unknown) (unknown) (no date) (unknown) (unknown) Pulse Oximetry (%) 99 (units unknown) (unknown) (unknown) (no date) (unknown) (unknown) Pulse Source Monitor (units unknown) (unknown) (unknown) (no date) (unknown) (unknown) Rash or viral illness since last menstrual period: Yes (URI vs allergies (Covid (units unknown) (unknown) (unknown) (no date) (unknown) (unknown) Reason For Visit (un its unknown) (unknown) (unknown) (no date) (unknown) (unknown) Recent travel outside of country?: Yes ([place] only) (units unknown) (unknown) (unknown) (no date) (unknown) (unknown) Recurrent preg haven loss or a stillbirth: No (units unknown) (unknown) (unknown) (no date) (unknown) (unknown) Repeat BP 125/70 (un its unknown) (unknown) (unknown) (no date) (unknown) (unknown) 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), (units unknown) (unknown) (unknown) (no date) (unknown) (unknown) 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) and Reports Other (units unknown) (unknown) (unknown) (no date) (unknown) (unknown) 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) (units unknown) (unknown) (unknown) (no date) (unknown) (unknown) Safety (units unknown) (unknown) (unknown) (no date) (unknown) (unknown) Seasonal allergies ( units unknown) (unknown) (unknown) (no date) (unknown) (unknown) Signed By: (units unknown) (unknown) (unknown) (no date) (unknown) (unknown) Sister Depression (u nits unknown) (unknown) (unknown) (no date) (unknown) (unknown) Smoking Status : Former smoker (quit vaping 11/2021) (units unknown) (unknown) (unknown) (no date) (unknown) (unknown) Smoking/Tobacc o use: discussed (units unknown) (unknown) (unknown) (no date) (unknown) (unknown) Social History (unit s unknown) (unknown) (unknown) (no date) (unknown) (unknown) Status: Acute (units unknown) (unknown) (unknown) (no date) (unknown) (unknown) Support Person (s):: Willian (units unknown) (unknown) (unknown) (no date) (unknown) (unknown) Surgical Histo ry (Updated 05/05/22 @ 15:35 by Rebecca Polk RN) (units unknown) (unknown) (unknown) (no date) (unknown) (unknown) Surrogate ?: no (units unknown) (unknown) (unknown) (no date) (unknown) (unknown) Symptoms since LMP: Reports amenorrhea, nausea, fatigue, breast tenderness, (units unknown) (unknown) (unknown) (no date) (unknown) (unknown) Teratogen Expo sures since LMP/Conception: Denies prescription medications, (units unknown) (unknown) (unknown) (no date) (unknown) (unknown) Testing Education (u nits unknown) (unknown) (unknown) (no date) (unknown) (unknown) Testing educat ion completed: group B strep, Spina bifida testing and Cell Free (units unknown) (unknown) (unknown) (no date) (unknown) (unknown) This note may have been all or partially generated using voice recognition (units unknown) (unknown) (unknown) (no date) (unknown) (unknown) Tobacco + Subs tance Use (units unknown) (unknown) (unknown) (no date) (unknown) (unknown) Tobacco Status (unit s unknown) (unknown) (unknown) (no date) (unknown) (unknown) Travel, Seatbe lt use and Influenza vaccine (already had flu shot, Covid x2) (units unknown) (unknown) (unknown) (no date) (unknown) (unknown) Type(s) of exercise: walking (units unknown) (unknown) (unknown) (no date) (unknown) (unknown) UProtein Movem ent PreLabor FHR Fndl Ht Pres Edema Cerv Exam US/Comment Next Appt (units unknown) (unknown) (unknown) (no date) (unknown) (unknown) Varicella/chic rodrigue pox status: immunized (units unknown) (unknown) (unknown) (no date) (unknown) (unknown) Visit Date: 06/16/22 Last Updated by: Faith Flanagan MD (units unknown) (unknown) (unknown) (no date) (unknown) (unknown) Visit Date: 07/14/22 Last Updated by: Faith Flanagan MD (units unknown) (unknown) (unknown) (no date) (unknown) (unknown) Visit Reasons: 20 wk ob (units unknown) (unknown) (unknown) (no date) (unknown) (unknown) Vitals (units unknown) (unknown) (unknown) (no date) (unknown) (unknown) Vitamins and i julio c, Diet and weight gain, Fish and mercury intake, Smoking, (units unknown) (unknown) (unknown) (no date) (unknown) (unknown) WG (units unknown) (unknown) (unknown) (no date) (unknown) (unknown) Weight 226 lb 8 oz ( units unknown) (unknown) (unknown) (no date) (unknown) (unknown) Will be having anatomy u/s through [facility], August 04. 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 (units unknown) (unknown) (unknown) (no date) (unknown) (unknown) [place] teeth extracted () (units unknown) (unknown) (unknown) (no date) (unknown) (unknown) Zika virus exposure: No (units unknown) (unknown) (unknown) (no date) (unknown) (unknown) activity, X-ra y exposure, Medication use, Sauna/hot tub use, Dental care, (units unknown) (unknown) (unknown) (no date) (unknown) (unknown) alcohol intake : former (5-7 glasses of wine/week when not ) (units unknown) (unknown) (unknown) (no date) (unknown) (unknown) anyone in ei er family with: (units unknown) (unknown) (unknown) (no date) (unknown) (unknown) at PP (units unknown) (unknown) (unknown) (no date) (unknown) (unknown) caffeine: Yes (<100mg/day) (units unknown) (unknown) (unknown) (no date) (unknown) (unknown) carbon monox detector in home: Yes (units unknown) (unknown) (unknown) (no date) (unknown) (unknown) caregiver/supp ort person: No (units unknown) (unknown) (unknown) (no date) (unknown) (unknown) cfDNA negative . It's a girl! (units unknown) (unknown) (unknown) (no date) (unknown) (unknown) connective tis norma d/o). 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 ) (units unknown) (unknown) (unknown) (no date) (unknown) (unknown) current occupational exposures/hazards: Yes (exposure in the building, but no (units unknown) (unknown) (unknown) (no date) (unknown) (unknown) daily servings fruits/ve-4 (units unknown) (unknown) (unknown) (no date) (unknown) (unknown) described, vis it schedule reviewed, ultrasounds policy reviewed, coverage 24 (units unknown) (unknown) (unknown) (no date) (unknown) (unknown) discussed, tuberculosis exposure discussed, CMV discussed, Toxoplasmosis (units unknown) (unknown) (unknown) (no date) (unknown) (unknown) do you feel sa fe at home: Yes (units unknown) (unknown) (unknown) (no date) (unknown) (unknown) duration: 30-4 5 minutes/day (units unknown) (unknown) (unknown) (no date) (unknown) (unknown) during the pas t year weight has: increased > 10 lbs (units unknown) (unknown) (unknown) (no date) (unknown) (unknown) education leve l: college (some college) (units unknown) (unknown) (unknown) (no date) (unknown) (unknown) fire extinguis her in home: Yes (units unknown) (unknown) (unknown) (no date) (unknown) (unknown) firearms in ho me: Yes (some locked up, not all) (units unknown) (unknown) (unknown) (no date) (unknown) (unknown) for genetic counseling. Likely needs echo. (units unknown) (unknown) (unknown) (no date) (unknown) (unknown) frequency: 3-4 times per week (units unknown) (unknown) (unknown) (no date) (unknown) (unknown) have occurred. If there are any questions, please contact the Medical Records (units unknown) (unknown) (unknown) (no date) (unknown) (unknown) helmet use: Yes (uni ts unknown) (unknown) (unknown) (no date) (unknown) (unknown) hours a day an d participation of father in care and office visits (units unknown) (unknown) (unknown) (no date) (unknown) (unknown) household memb ers: spouse and friend(s) (units unknown) (unknown) (unknown) (no date) (unknown) (unknown) housing: house (unit s unknown) (unknown) (unknown) (no date) (unknown) (unknown) inherited gene tic or chromosomal disorder (polycystic kidneys, Marfan's) (units unknown) (unknown) (unknown) (no date) (unknown) (unknown) irritability a nd other (constipation) (units unknown) (unknown) (unknown) (no date) (unknown) (unknown) lives independently: Yes (units unknown) (unknown) (unknown) (no date) (unknown) (unknown) marital status : (units unknown) (unknown) (unknown) (no date) (unknown) (unknown) may occur. 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 Please (units unknown) (unknown) (unknown) (no date) (unknown) (unknown) pets and anima ls: Yes (units unknown) (unknown) (unknown) (no date) (unknown) (unknown) precautions, Listeriosis prevention and Rubella Immunization (units unknown) (unknown) (unknown) (no date) (unknown) (unknown) prenat.vits,ca l,min -iron-folic 1 tab PO DAILY 05/05/22 [History Confirmed (units unknown) (unknown) (unknown) (no date) (unknown) (unknown) read the note carefully and recognize, using context, where these substitutions (units unknown) (unknown) (unknown) (no date) (unknown) (unknown) seatbelt use: always (units unknown) (unknown) (unknown) (no date) (unknown) (unknown) second hand exposure: Yes (roommate vapes) (units unknown) (unknown) (unknown) (no date) (unknown) (unknown) sister fr om hypoplastic left heart as an infant. Referral to [facility] placed (units unknown) (unknown) (unknown) (no date) (unknown) (unknown) software. 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 Cous in cystic fibrosis. -- Referral to [facility] for genetic counseling. (units unknown) (unknown) (unknown) (no date) (unknown) (unknown) tea, taking B6. 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 (units unknown) (unknown) (unknown) (no date) (unknown) (unknown) that [facility] may recommend additional testing as well. (units unknown) (unknown) (unknown) (no date) (unknown) (unknown) they plan on ordering echo. (units unknown) (unknown) (unknown) (no date) (unknown) (unknown) travel history : recent (domestic, [place]) (units unknown) (unknown) (unknown) (no date) (unknown) (unknown) water heater t emp set < 120 deg: Yes (units unknown) (unknown) (unknown) (no date) (unknown) (unknown) well-balanced diet: about half the time (units unknown) (unknown) (unknown) (no date) (unknown) (unknown) working smoke detector in home: Yes (units unknown) (unknown) Result panel 84 (unknown) (no date) (unknown) (unknown) (no value) (units unknown) (unknown) (unknown) (no date) (unknown) (unknown) (+16 lb 8 oz) 136/66 (units unknown) (unknown) (unknown) (no date) (unknown) (unknown) (+8 lb 8 oz) 110/66 (units unknown) (unknown) (unknown) (no date) (unknown) (unknown) (+9 lb 8 oz) 140/86 (units unknown) (unknown) (unknown) (no date) (unknown) (unknown) (1) Polycystic kidney disease: (units unknown) (unknown) (unknown) (no date) (unknown) (unknown) (2) 19 weeks gestation of : (units unknown) (unknown) (unknown) (no date) (unknown) (unknown) Genetic Screening/Teratolog y Counseling - Includes patient, baby's father, or (units unknown) (unknown) (unknown) (no date) (unknown) (unknown) -?-?-?-?-?-?-? -?-?- ?-?-? (units unknown) (unknown) (unknown) (no date) (unknown) (unknown) 06/16/22 (units unknown) (unknown) (unknown) (no date) (unknown) (unknown) 07/14/22 (units unknown) (unknown) (unknown) (no date) (unknown) (unknown) [id number] (units unknown) (unknown) (unknown) (no date) (unknown) (unknown) 08/11/22 (units unknown) (unknown) (unknown) (no date) (unknown) (unknown) 08/11/22] (units unknown) (unknown) (unknown) (no date) (unknown) (unknown) 12/29/22 Ultra sound #1 20w 0d (units unknown) (unknown) (unknown) (no date) (unknown) (unknown) 11:18 (units unknown) (unknown) (unknown) (no date) (unknown) (unknown) 11w 5d 218 lb 8 oz ( units unknown) (unknown) (unknown) (no date) (unknown) (unknown) 125/70 (units unknown) (unknown) (unknown) (no date) (unknown) (unknown) 15w 5d 219 lb 8 oz ( units unknown) (unknown) (unknown) (no date) (unknown) (unknown) 19w 5d 226 lb 8 oz ( units unknown) (unknown) (unknown) (no date) (unknown) (unknown) 4wks (units unknown) (unknown) (unknown) (no date) (unknown) (unknown) Abnormal lab v alues 1st trimester: discussed (units unknown) (unknown) (unknown) (no date) (unknown) (unknown) Acne (units unknown) (unknown) (unknown) (no date) (unknown) (unknown) Add'l Plan Details ( units unknown) (unknown) (unknown) (no date) (unknown) (unknown) Age/Sex: 22 / F Date of Service: (units unknown) (unknown) (unknown) (no date) (unknown) (unknown) Allergies (units unknown) (unknown) (unknown) (no date) (unknown) (unknown) [facility] (units unknown) (unknown) (unknown) (no date) (unknown) (unknown) [place] [address] (units unknown) (unknown) (unknown) (no date) (unknown) (unknown) Aneuploidy Screening Offered: Declined (unsure, wants to discuss w/ ) (units unknown) (unknown) (unknown) (no date) (unknown) (unknown) Anticipated co urse of care: discussed (units unknown) (unknown) (unknown) (no date) (unknown) (unknown) Anxiety (units unknown) (unknown) (unknown) (no date) (unknown) (unknown) Arthritis (units unknown) (unknown) (unknown) (no date) (unknown) (unknown) Assessment and Plan (units unknown) (unknown) (unknown) (no date) (unknown) (unknown) Attending Dr: Faith Flanagan MD (units unknown) (unknown) (unknown) (no date) (unknown) (unknown) BMI 35.4 (units unknown) (unknown) (unknown) (no date) (unknown) (unknown) BP 136/66 (units unknown) (unknown) (unknown) (no date) (unknown) (unknown) Plan/Preferences (units unknown) (unknown) (unknown) (no date) (unknown) (unknown) Planning (unit s unknown) (unknown) (unknown) (no date) (unknown) (unknown) Blood Pressure Location Rt brachial (units unknown) (unknown) (unknown) (no date) (unknown) (unknown) Blood transfusions?: yes (Never had but would accept) (units unknown) (unknown) (unknown) (no date) (unknown) (unknown) Caffeine use, Exercise and activity, work/environmental/ hazards, Sexual (units unknown) (unknown) (unknown) (no date) (unknown) (unknown) Childbirth Cla sses: discussed (units unknown) (unknown) (unknown) (no date) (unknown) (unknown) Current Estima te 12/31/22 Manual 19w 5d Final MOMO (units unknown) (unknown) (unknown) (no date) (unknown) (unknown) Current Pregna ncy History (units unknown) (unknown) (unknown) (no date) (unknown) (unknown) DNA (units unknown) (unknown) (unknown) (no date) (unknown) (unknown) : 1 Acct:[id number] (units unknown) (unknown) (unknown) (no date) (unknown) (unknown) Date of positi ve home test: 04/19/22 (units unknown) (unknown) (unknown) (no date) (unknown) (unknown) Date (units unknown) (unknown) (unknown) (no date) (unknown) (unknown) Dating u/s concordant with LMP. Keep MOMO 12/31/22. (units unknown) (unknown) (unknown) (no date) (unknown) (unknown) Denies over th e counter medications, Denies alcohol, Denies illicit drugs and (units unknown) (unknown) (unknown) (no date) (unknown) (unknown) Depression: discussed (units unknown) (unknown) (unknown) (no date) (unknown) (unknown) Dept at . (units unknown) (unknown) (unknown) (no date) (unknown) (unknown) Desires geneti c testing. Will see if cfDNA can be scheduled. Discussed (units unknown) (unknown) (unknown) (no date) (unknown) (unknown) Diet and Exercise (u nits unknown) (unknown) (unknown) (no date) (unknown) (unknown) Documented By: Faith Flanagan MD 08/11/22 0814 (units unknown) (unknown) (unknown) (no date) (unknown) (unknown) Draft (units unknown) (unknown) (unknown) (no date) (unknown) (unknown) MOMO Calculator (unit s unknown) (unknown) (unknown) (no date) (unknown) (unknown) EGA Weight BP UGlucose (units unknown) (unknown) (unknown) (no date) (unknown) (unknown) Estimated Deli very Date Method Current (units unknown) (unknown) (unknown) (no date) (unknown) (unknown) Family History (Updated 05/05/22 @ 15:59 by Rebecca Polk RN) (units unknown) (unknown) (unknown) (no date) (unknown) (unknown) Family/Other Marfans syndrome (units unknown) (unknown) (unknown) (no date) (unknown) (unknown) Family/Other Marfans syndrome (units unknown) (unknown) (unknown) (no date) (unknown) (unknown) Family/Other Polycystic kidney disease (units unknown) (unknown) (unknown) (no date) (unknown) (unknown) Father of Baby : same (units unknown) (unknown) (unknown) (no date) (unknown) (unknown) First Trimeste r Education Checklist (units unknown) (unknown) (unknown) (no date) (unknown) (unknown) Genetic Screen ing + Counseling (units unknown) (unknown) (unknown) (no date) (unknown) (unknown) Genetic Screening (u nits unknown) (unknown) (unknown) (no date) (unknown) (unknown) Genetic polycy stic kidney disease; family Hx Marfan Syndrome (pt has no known (units unknown) (unknown) (unknown) (no date) (unknown) (unknown) Grandfather Marfans syndrome (units unknown) (unknown) (unknown) (no date) (unknown) (unknown) Grandfather Me ntal health problem (units unknown) (unknown) (unknown) (no date) (unknown) (unknown) Grandmother Lymphoma (units unknown) (unknown) (unknown) (no date) (unknown) (unknown) 1 Mult iple births 0 (units unknown) (unknown) (unknown) (no date) (unknown) (unknown) HIV risk evaluation: low risk (units unknown) (unknown) (unknown) (no date) (unknown) (unknown) Health Center Education (units unknown) (unknown) (unknown) (no date) (unknown) (unknown) Health center information: nature of practice discussed, personnel (units unknown) (unknown) (unknown) (no date) (unknown) (unknown) Height 5 ft 7 in (un its unknown) (unknown) (unknown) (no date) (unknown) (unknown) Hepatitis C ri sk evaluation: low risk (units unknown) (unknown) (unknown) (no date) (unknown) (unknown) History of Hepatitis B: No (units unknown) (unknown) (unknown) (no date) (unknown) (unknown) History of Hepatitis C: No (units unknown) (unknown) (unknown) (no date) (unknown) (unknown) History of rem oval of skin mole (units unknown) (unknown) (unknown) (no date) (unknown) (unknown) Hospital: [facility] (units unknown) (unknown) (unknown) (no date) (unknown) (unknown) Hx # Pregnancies 0 Elective abortions 0 (units unknown) (unknown) (unknown) (no date) (unknown) (unknown) Hx # Term Pregnancies 0 Ectopic pregnancies 0 (units unknown) (unknown) (unknown) (no date) (unknown) (unknown) will be adopted?: no (units unknown) (unknown) (unknown) (no date) (unknown) (unknown) Infection History (u nits unknown) (unknown) (unknown) (no date) (unknown) (unknown) Infectious Dis ease Education (units unknown) (unknown) (unknown) (no date) (unknown) (unknown) Infectious dis ease exposure: chicken pox immunity discussed, hepatitis risk (units unknown) (unknown) (unknown) (no date) (unknown) (unknown) Initial Weight : 210 lb (units unknown) (unknown) (unknown) (no date) (unknown) (unknown) Initials (units unknown) (unknown) (unknown) (no date) (unknown) (unknown) Intake Clinica l Staff (units unknown) (unknown) (unknown) (no date) (unknown) (unknown) Intake perform ed by: Chantelle Hernández (units unknown) (unknown) (unknown) (no date) (unknown) (unknown) Intake (units unknown) (unknown) (unknown) (no date) (unknown) (unknown) ROSALIE (units unknown) (unknown) (unknown) (no date) (unknown) (unknown) LGSIL on Pap s mear of cervix (units unknown) (unknown) (unknown) (no date) (unknown) (unknown) Likely needs f etal echo. (units unknown) (unknown) (unknown) (no date) (unknown) (unknown) Live with some one with TB or exposed to TB: No (units unknown) (unknown) (unknown) (no date) (unknown) (unknown) Loc: [facility] (units unknown) (unknown) (unknown) (no date) (unknown) (unknown) Marital status : (units unknown) (unknown) (unknown) (no date) (unknown) (unknown) Medical Histor y (Updated 06/16/22 @ 12:31 by Shaniqua Landry MA) (units unknown) (unknown) (unknown) (no date) (unknown) (unknown) Medications (units unknown) (unknown) (unknown) (no date) (unknown) (unknown) Mother Polycys tic kidney disease (units unknown) (unknown) (unknown) (no date) (unknown) (unknown) No Known Drug Allergies Allergy (Unverified 08/11/22 11:19) (units unknown) (unknown) (unknown) (no date) (unknown) (unknown) No no 156 absent (un its unknown) (unknown) (unknown) (no date) (unknown) (unknown) No no 158 absent (un its unknown) (unknown) (unknown) (no date) (unknown) (unknown) No significant cramping. Nausea is manageable - using bogdan mints and (units unknown) (unknown) (unknown) (no date) (unknown) (unknown) Notes (units unknown) (unknown) (unknown) (no date) (unknown) (unknown) Number of Maylin ng Children 0 (units unknown) (unknown) (unknown) (no date) (unknown) (unknown) Number of fetu ses:: Single (units unknown) (unknown) (unknown) (no date) (unknown) (unknown) Nutrition and weight gain counseling: special diet: discussed (units unknown) (unknown) (unknown) (no date) (unknown) (unknown) OB Office Visit (uni ts unknown) (unknown) (unknown) (no date) (unknown) (unknown) OB Visit Log (units unknown) (unknown) (unknown) (no date) (unknown) (unknown) On contr ol at conception?: No (units unknown) (unknown) (unknown) (no date) (unknown) (unknown) Other Estimate s 12/31/22 LMP (Certain) 19w 5d (units unknown) (unknown) (unknown) (no date) (unknown) (unknown) Oxygen Deliver y Method room air (units unknown) (unknown) (unknown) (no date) (unknown) (unknown) PFSH (units unknown) (unknown) (unknown) (no date) (unknown) (unknown) Pap LSIL 01/23 22, but no reflex HPV was run, no f/u done. 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 treated and cured) (units unknown) (unknown) (unknown) (no date) (unknown) (unknown) Partner histor y of genital herpes: Yes (units unknown) (unknown) (unknown) (no date) (unknown) (unknown) Partner: Willian Lopez (units unknown) (unknown) (unknown) (no date) (unknown) (unknown) Patient's age 35 years or older as of estimated date of delivery: No (units unknown) (unknown) (unknown) (no date) (unknown) (unknown) Patient: Colleen Lopez MR#: [id number] (units unknown) (unknown) (unknown) (no date) (unknown) (unknown) Client Reporting Associate: Masha (units unknown) (unknown) (unknown) (no date) (unknown) (unknown) Personal histo ry of STD: HPV (? no HPV actually run from pap) (units unknown) (unknown) (unknown) (no date) (unknown) (unknown) Personal histo ry of genital herpes: No (units unknown) (unknown) (unknown) (no date) (unknown) (unknown) Polycystic kid shannan disease (units unknown) (unknown) (unknown) (no date) (unknown) (unknown) Position Sitting (un its unknown) (unknown) (unknown) (no date) (unknown) (unknown) History (u nits unknown) (unknown) (unknown) (no date) (unknown) (unknown) type :: First (units unknown) (unknown) (unknown) (no date) (unknown) (unknown) Education ( units unknown) (unknown) (unknown) (no date) (unknown) (unknown) Initi al Assessment (units unknown) (unknown) (unknown) (no date) (unknown) (unknown) Speci fic Issues/Plans (units unknown) (unknown) (unknown) (no date) (unknown) (unknown) Testi ng: discussed (units unknown) (unknown) (unknown) (no date) (unknown) (unknown) Visit (unit s unknown) (unknown) (unknown) (no date) (unknown) (unknown) educa tion packet: Child education/plan, symptoms, (units unknown) (unknown) (unknown) (no date) (unknown) (unknown) Primary Care Provider: DOD (units unknown) (unknown) (unknown) (no date) (unknown) (unknown) Primary Ob Provider: Faith Flanagan (units unknown) (unknown) (unknown) (no date) (unknown) (unknown) Prior GBS-Infe cted child: No (units unknown) (unknown) (unknown) (no date) (unknown) (unknown) Providers (units unknown) (unknown) (unknown) (no date) (unknown) (unknown) 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 No exposures for over a month. (units unknown) (unknown) (unknown) (no date) (unknown) (unknown) Pt with polycy stic kidney disease. No issues with kidney function. FOB's (units unknown) (unknown) (unknown) (no date) (unknown) (unknown) Pulse 58 L (units unknown) (unknown) (unknown) (no date) (unknown) (unknown) Pulse Oximetry (%) 99 (units unknown) (unknown) (unknown) (no date) (unknown) (unknown) Pulse Source Monitor (units unknown) (unknown) (unknown) (no date) (unknown) (unknown) Rash or viral illness since last menstrual period: Yes (URI vs allergies (Covid (units unknown) (unknown) (unknown) (no date) (unknown) (unknown) Reason For Visit (un its unknown) (unknown) (unknown) (no date) (unknown) (unknown) Recent travel outside of country?: Yes ([place] only) (units unknown) (unknown) (unknown) (no date) (unknown) (unknown) Recurrent preg haven loss or a stillbirth: No (units unknown) (unknown) (unknown) (no date) (unknown) (unknown) Repeat BP 125/70 (un its unknown) (unknown) (unknown) (no date) (unknown) (unknown) 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), (units unknown) (unknown) (unknown) (no date) (unknown) (unknown) 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) and Reports Other (units unknown) (unknown) (unknown) (no date) (unknown) (unknown) 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) (units unknown) (unknown) (unknown) (no date) (unknown) (unknown) Safety (units unknown) (unknown) (unknown) (no date) (unknown) (unknown) Seasonal allergies ( units unknown) (unknown) (unknown) (no date) (unknown) (unknown) Signed By: (units unknown) (unknown) (unknown) (no date) (unknown) (unknown) Sister Depression (u nits unknown) (unknown) (unknown) (no date) (unknown) (unknown) Smoking Status : Former smoker (quit vaping 11/2021) (units unknown) (unknown) (unknown) (no date) (unknown) (unknown) Smoking/Tobacc o use: discussed (units unknown) (unknown) (unknown) (no date) (unknown) (unknown) Social History (unit s unknown) (unknown) (unknown) (no date) (unknown) (unknown) Status: Acute (units unknown) (unknown) (unknown) (no date) (unknown) (unknown) Support Person (s):: Willian (units unknown) (unknown) (unknown) (no date) (unknown) (unknown) Surgical Histo ry (Updated 05/05/22 @ 15:35 by Rebecca Polk RN) (units unknown) (unknown) (unknown) (no date) (unknown) (unknown) Surrogate ?: no (units unknown) (unknown) (unknown) (no date) (unknown) (unknown) Symptoms since LMP: Reports amenorrhea, nausea, fatigue, breast tenderness, (units unknown) (unknown) (unknown) (no date) (unknown) (unknown) Teratogen Expo sures since LMP/Conception: Denies prescription medications, (units unknown) (unknown) (unknown) (no date) (unknown) (unknown) Testing Education (u nits unknown) (unknown) (unknown) (no date) (unknown) (unknown) Testing educat ion completed: group B strep, Spina bifida testing and Cell Free (units unknown) (unknown) (unknown) (no date) (unknown) (unknown) This note may have been all or partially generated using voice recognition (units unknown) (unknown) (unknown) (no date) (unknown) (unknown) Tobacco + Subs tance Use (units unknown) (unknown) (unknown) (no date) (unknown) (unknown) Tobacco Status (unit s unknown) (unknown) (unknown) (no date) (unknown) (unknown) Travel, Seatbe lt use and Influenza vaccine (already had flu shot, Covid x2) (units unknown) (unknown) (unknown) (no date) (unknown) (unknown) Type(s) of exercise: walking (units unknown) (unknown) (unknown) (no date) (unknown) (unknown) UProtein Movem ent PreLabor FHR Fndl Ht Pres Edema Cerv Exam US/Comment Next Appt (units unknown) (unknown) (unknown) (no date) (unknown) (unknown) Varicella/chic rodrigue pox status: immunized (units unknown) (unknown) (unknown) (no date) (unknown) (unknown) Visit Date: 06/16/22 Last Updated by: Faith Flanagan MD (units unknown) (unknown) (unknown) (no date) (unknown) (unknown) Visit Date: 07/14/22 Last Updated by: Faith Flanagan MD (units unknown) (unknown) (unknown) (no date) (unknown) (unknown) Visit Reasons: 20 wk ob (units unknown) (unknown) (unknown) (no date) (unknown) (unknown) Vitals (units unknown) (unknown) (unknown) (no date) (unknown) (unknown) Vitamins and i julio c, Diet and weight gain, Fish and mercury intake, Smoking, (units unknown) (unknown) (unknown) (no date) (unknown) (unknown) WG (units unknown) (unknown) (unknown) (no date) (unknown) (unknown) Weight 226 lb 8 oz ( units unknown) (unknown) (unknown) (no date) (unknown) (unknown) Will be having anatomy u/s through [facility], August 04. 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 (units unknown) (unknown) (unknown) (no date) (unknown) (unknown) [place] teeth extracted () (units unknown) (unknown) (unknown) (no date) (unknown) (unknown) Zika virus exposure: No (units unknown) (unknown) (unknown) (no date) (unknown) (unknown) activity, X-ra y exposure, Medication use, Sauna/hot tub use, Dental care, (units unknown) (unknown) (unknown) (no date) (unknown) (unknown) alcohol intake : former (5-7 glasses of wine/week when not ) (units unknown) (unknown) (unknown) (no date) (unknown) (unknown) anyone in [facility] family with: (units unknown) (unknown) (unknown) (no date) (unknown) (unknown) at PP (units unknown) (unknown) (unknown) (no date) (unknown) (unknown) caffeine: Yes (<100mg/day) (units unknown) (unknown) (unknown) (no date) (unknown) (unknown) carbon monox detector in home: Yes (units unknown) (unknown) (unknown) (no date) (unknown) (unknown) caregiver/supp ort person: No (units unknown) (unknown) (unknown) (no date) (unknown) (unknown) cfDNA negative . It's a girl! (units unknown) (unknown) (unknown) (no date) (unknown) (unknown) connective tis norma d/o). 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 ) (units unknown) (unknown) (unknown) (no date) (unknown) (unknown) current occupational exposures/hazards: Yes (exposure in the building, but no (units unknown) (unknown) (unknown) (no date) (unknown) (unknown) daily servings fruits/ve-4 (units unknown) (unknown) (unknown) (no date) (unknown) (unknown) described, vis it schedule reviewed, ultrasounds policy reviewed, coverage 24 (units unknown) (unknown) (unknown) (no date) (unknown) (unknown) discussed, tuberculosis exposure discussed, CMV discussed, Toxoplasmosis (units unknown) (unknown) (unknown) (no date) (unknown) (unknown) do you feel sa fe at home: Yes (units unknown) (unknown) (unknown) (no date) (unknown) (unknown) duration: 30-4 5 minutes/day (units unknown) (unknown) (unknown) (no date) (unknown) (unknown) during the pas t year weight has: increased > 10 lbs (units unknown) (unknown) (unknown) (no date) (unknown) (unknown) education leve l: college (some college) (units unknown) (unknown) (unknown) (no date) (unknown) (unknown) fire extinguis her in home: Yes (units unknown) (unknown) (unknown) (no date) (unknown) (unknown) firearms in ho me: Yes (some locked up, not all) (units unknown) (unknown) (unknown) (no date) (unknown) (unknown) for genetic counseling. Likely needs echo. (units unknown) (unknown) (unknown) (no date) (unknown) (unknown) frequency: 3-4 times per week (units unknown) (unknown) (unknown) (no date) (unknown) (unknown) have occurred. If there are any questions, please contact the Medical Records (units unknown) (unknown) (unknown) (no date) (unknown) (unknown) helmet use: Yes (uni ts unknown) (unknown) (unknown) (no date) (unknown) (unknown) hours a day an d participation of father in care and office visits (units unknown) (unknown) (unknown) (no date) (unknown) (unknown) household memb ers: spouse and friend(s) (units unknown) (unknown) (unknown) (no date) (unknown) (unknown) housing: house (unit s unknown) (unknown) (unknown) (no date) (unknown) (unknown) inherited gene tic or chromosomal disorder (polycystic kidneys, Marfan's) (units unknown) (unknown) (unknown) (no date) (unknown) (unknown) irritability a nd other (constipation) (units unknown) (unknown) (unknown) (no date) (unknown) (unknown) lives independently: Yes (units unknown) (unknown) (unknown) (no date) (unknown) (unknown) marital status : (units unknown) (unknown) (unknown) (no date) (unknown) (unknown) may occur. 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 Please (units unknown) (unknown) (unknown) (no date) (unknown) (unknown) pets and anima ls: Yes (units unknown) (unknown) (unknown) (no date) (unknown) (unknown) precautions, Listeriosis prevention and Rubella Immunization (units unknown) (unknown) (unknown) (no date) (unknown) (unknown) prenat.vits,ca l,min -iron-folic 1 tab PO DAILY 05/05/22 [History Confirmed (units unknown) (unknown) (unknown) (no date) (unknown) (unknown) read the note carefully and recognize, using context, where these substitutions (units unknown) (unknown) (unknown) (no date) (unknown) (unknown) seatbelt use: always (units unknown) (unknown) (unknown) (no date) (unknown) (unknown) second hand exposure: Yes (roommate vapes) (units unknown) (unknown) (unknown) (no date) (unknown) (unknown) sister fr om hypoplastic left heart as an infant. Referral to [facility] placed (units unknown) (unknown) (unknown) (no date) (unknown) (unknown) software. [facility]th [facility] every effort is made to edit content, coordinate measuring machine operator errors (units unknown) (unknown) (unknown) (no date) (unknown) (unknown) special jeri needs: No (units unknown) (unknown) (unknown) (no date) (unknown) (unknown) substance use type: does not use (units unknown) (unknown) (unknown) (no date) (unknown) (unknown) syndrome. Cous in cystic fibrosis. -- Referral to [facility] for genetic counseling. (units unknown) (unknown) (unknown) (no date) (unknown) (unknown) tea, taking B6. 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 (units unknown) (unknown) (unknown) (no date) (unknown) (unknown) that [facility] may recommend additional testing as well. (units unknown) (unknown) (unknown) (no date) (unknown) (unknown) they plan on ordering echo. (units unknown) (unknown) (unknown) (no date) (unknown) (unknown) travel history : recent (domestic, [place]) (units unknown) (unknown) (unknown) (no date) (unknown) (unknown) water heater t emp set < 120 deg: Yes (units unknown) (unknown) (unknown) (no date) (unknown) (unknown) well-balanced diet: about half the time (units unknown) (unknown) (unknown) (no date) (unknown) (unknown) working smoke detector in home: Yes (units unknown) (unknown) Result panel 85 (unknown) (no date) (unknown) (unknown) (no value) (units unknown) (unknown) (unknown) (no date) (unknown) (unknown) (+16 lb 8 oz) 136/66 (units unknown) (unknown) (unknown) (no date) (unknown) (unknown) (+8 lb 8 oz) 110/66 (units unknown) (unknown) (unknown) (no date) (unknown) (unknown) (+9 lb 8 oz) 140/86 (units unknown) (unknown) (unknown) (no date) (unknown) (unknown) (1) Polycystic kidney disease: (units unknown) (unknown) (unknown) (no date) (unknown) (unknown) (2) 19 weeks gestation of : (units unknown) (unknown) (unknown) (no date) (unknown) (unknown) Genetic Screening/Teratolog y Counseling - Includes patient, baby's father, or (units unknown) (unknown) (unknown) (no date) (unknown) (unknown) -?-?-?-?-?-?-? -?-?- ?-?-? (units unknown) (unknown) (unknown) (no date) (unknown) (unknown) 06/16/22 (units unknown) (unknown) (unknown) (no date) (unknown) (unknown) 07/14/22 (units unknown) (unknown) (unknown) (no date) (unknown) (unknown) [id number] (units unknown) (unknown) (unknown) (no date) (unknown) (unknown) 08/11/22 1243 (units unknown) (unknown) (unknown) (no date) (unknown) (unknown) 08/11/22 (units unknown) (unknown) (unknown) (no date) (unknown) (unknown) 08/11/22] (units unknown) (unknown) (unknown) (no date) (unknown) (unknown) 12/29/22 Ultra sound #1 20w 0d (units unknown) (unknown) (unknown) (no date) (unknown) (unknown) 11:18 (units unknown) (unknown) (unknown) (no date) (unknown) (unknown) 11w 5d 218 lb 8 oz ( units unknown) (unknown) (unknown) (no date) (unknown) (unknown) 125/70 (units unknown) (unknown) (unknown) (no date) (unknown) (unknown) 15w 5d 219 lb 8 oz ( units unknown) (unknown) (unknown) (no date) (unknown) (unknown) 19w 5d 226 lb 8 oz ( units unknown) (unknown) (unknown) (no date) (unknown) (unknown) 4wks (units unknown) (unknown) (unknown) (no date) (unknown) (unknown) Abnormal lab v alues 1st trimester: discussed (units unknown) (unknown) (unknown) (no date) (unknown) (unknown) Acne (units unknown) (unknown) (unknown) (no date) (unknown) (unknown) Add'l Plan Details ( units unknown) (unknown) (unknown) (no date) (unknown) (unknown) Age/Sex: 22 / F Date of Service: (units unknown) (unknown) (unknown) (no date) (unknown) (unknown) Allergies (units unknown) (unknown) (unknown) (no date) (unknown) (unknown) [facility] (units unknown) (unknown) (unknown) (no date) (unknown) (unknown) [place] [id number] (units unknown) (unknown) (unknown) (no date) (unknown) (unknown) Anatomy scan t o be complete through M. (units unknown) (unknown) (unknown) (no date) (unknown) (unknown) Aneuploidy Screening Offered: Declined (unsure, wants to discuss w/ ) (units unknown) (unknown) (unknown) (no date) (unknown) (unknown) Anticipated co urse of care: discussed (units unknown) (unknown) (unknown) (no date) (unknown) (unknown) Anxiety (units unknown) (unknown) (unknown) (no date) (unknown) (unknown) Arthritis (units unknown) (unknown) (unknown) (no date) (unknown) (unknown) Assessment and Plan (units unknown) (unknown) (unknown) (no date) (unknown) (unknown) Attending Dr: Faith Flanagan MD (units unknown) (unknown) (unknown) (no date) (unknown) (unknown) BMI 35.4 (units unknown) (unknown) (unknown) (no date) (unknown) (unknown) BP 136/66 (units unknown) (unknown) (unknown) (no date) (unknown) (unknown) Plan/Preferences (units unknown) (unknown) (unknown) (no date) (unknown) (unknown) Planning (unit s unknown) (unknown) (unknown) (no date) (unknown) (unknown) Blood Pressure Location Rt brachial (units unknown) (unknown) (unknown) (no date) (unknown) (unknown) Blood transfusions?: yes (Never had but would accept) (units unknown) (unknown) (unknown) (no date) (unknown) (unknown) Caffeine use, Exercise and activity, work/environmental/ hazards, Sexual (units unknown) (unknown) (unknown) (no date) (unknown) (unknown) Childbirth Cla sses: discussed (units unknown) (unknown) (unknown) (no date) (unknown) (unknown) Current Estima te 12/31/22 Manual 19w 5d Final MOMO (units unknown) (unknown) (unknown) (no date) (unknown) (unknown) Current Pregna ncy History (units unknown) (unknown) (unknown) (no date) (unknown) (unknown) DNA (units unknown) (unknown) (unknown) (no date) (unknown) (unknown) : 1 Acct:[id number] (units unknown) (unknown) (unknown) (no date) (unknown) (unknown) Date of positi ve home test: 04/19/22 (units unknown) (unknown) (unknown) (no date) (unknown) (unknown) Date (units unknown) (unknown) (unknown) (no date) (unknown) (unknown) Dating u/s concordant with LMP. Keep MOMO 12/31/22. (units unknown) (unknown) (unknown) (no date) (unknown) (unknown) Denies over th e counter medications, Denies alcohol, Denies illicit drugs and (units unknown) (unknown) (unknown) (no date) (unknown) (unknown) Depression: discussed (units unknown) (unknown) (unknown) (no date) (unknown) (unknown) Dept at . (units unknown) (unknown) (unknown) (no date) (unknown) (unknown) Desires geneti c testing. Will see if cfDNA can be scheduled. Discussed (units unknown) (unknown) (unknown) (no date) (unknown) (unknown) Diet and Exercise (u nits unknown) (unknown) (unknown) (no date) (unknown) (unknown) Documented By: Faith Flanagan MD 08/11/22 0814 (units unknown) (unknown) (unknown) (no date) (unknown) (unknown) MOMO Calculator (unit s unknown) (unknown) (unknown) (no date) (unknown) (unknown) EGA Weight BP UGlucose (units unknown) (unknown) (unknown) (no date) (unknown) (unknown) Estimated Deli very Date Method Current (units unknown) (unknown) (unknown) (no date) (unknown) (unknown) Expanded janiya er testing through [facility] was positive for 2 things reportedly. (units unknown) (unknown) (unknown) (no date) (unknown) (unknown) Family History (Updated 05/05/22 @ 15:59 by Rebecca Polk RN) (units unknown) (unknown) (unknown) (no date) (unknown) (unknown) Family/Other Marfans syndrome (units unknown) (unknown) (unknown) (no date) (unknown) (unknown) Family/Other Marfans syndrome (units unknown) (unknown) (unknown) (no date) (unknown) (unknown) Family/Other Polycystic kidney disease (units unknown) (unknown) (unknown) (no date) (unknown) (unknown) Father of Baby : same (units unknown) (unknown) (unknown) (no date) (unknown) (unknown) First Trimeste r Education Checklist (units unknown) (unknown) (unknown) (no date) (unknown) (unknown) Genetic Screen ing + Counseling (units unknown) (unknown) (unknown) (no date) (unknown) (unknown) Genetic Screening (u nits unknown) (unknown) (unknown) (no date) (unknown) (unknown) Genetic polycy stic kidney disease; family Hx Marfan Syndrome (pt has no known (units unknown) (unknown) (unknown) (no date) (unknown) (unknown) Grandfather Marfans syndrome (units unknown) (unknown) (unknown) (no date) (unknown) (unknown) Grandfather Me ntal health problem (units unknown) (unknown) (unknown) (no date) (unknown) (unknown) Grandmother Lymphoma (units unknown) (unknown) (unknown) (no date) (unknown) (unknown) 1 Mult iple births 0 (units unknown) (unknown) (unknown) (no date) (unknown) (unknown) HIV risk evaluation: low risk (units unknown) (unknown) (unknown) (no date) (unknown) (unknown) Health Center Education (units unknown) (unknown) (unknown) (no date) (unknown) (unknown) Health center information: nature of practice discussed, personnel (units unknown) (unknown) (unknown) (no date) (unknown) (unknown) Height 5 ft 7 in (un its unknown) (unknown) (unknown) (no date) (unknown) (unknown) Hepatitis C ri sk evaluation: low risk (units unknown) (unknown) (unknown) (no date) (unknown) (unknown) History of Hepatitis B: No (units unknown) (unknown) (unknown) (no date) (unknown) (unknown) History of Hepatitis C: No (units unknown) (unknown) (unknown) (no date) (unknown) (unknown) History of rem oval of skin mole (units unknown) (unknown) (unknown) (no date) (unknown) (unknown) Hospital: [facility] (units unknown) (unknown) (unknown) (no date) (unknown) (unknown) Hx # Pregnancies 0 Elective abortions 0 (units unknown) (unknown) (unknown) (no date) (unknown) (unknown) Hx # Term Pregnancies 0 Ectopic pregnancies 0 (units unknown) (unknown) (unknown) (no date) (unknown) (unknown) will be adopted?: no (units unknown) (unknown) (unknown) (no date) (unknown) (unknown) Infection History (u nits unknown) (unknown) (unknown) (no date) (unknown) (unknown) Infectious Dis ease Education (units unknown) (unknown) (unknown) (no date) (unknown) (unknown) Infectious dis ease exposure: chicken pox immunity discussed, hepatitis risk (units unknown) (unknown) (unknown) (no date) (unknown) (unknown) Initial Weight : 210 lb (units unknown) (unknown) (unknown) (no date) (unknown) (unknown) Initials (units unknown) (unknown) (unknown) (no date) (unknown) (unknown) Intake Clinica l Staff (units unknown) (unknown) (unknown) (no date) (unknown) (unknown) Intake perform ed by: Chantelle Hernández (units unknown) (unknown) (unknown) (no date) (unknown) (unknown) Intake (units unknown) (unknown) (unknown) (no date) (unknown) (unknown) ROSALIE (units unknown) (unknown) (unknown) (no date) (unknown) (unknown) LGSIL on Pap s mear of cervix (units unknown) (unknown) (unknown) (no date) (unknown) (unknown) Likely needs f etal echo. (units unknown) (unknown) (unknown) (no date) (unknown) (unknown) Live with some one with TB or exposed to TB: No (units unknown) (unknown) (unknown) (no date) (unknown) (unknown) Loc: [facility] (units unknown) (unknown) (unknown) (no date) (unknown) (unknown) Marital status : (units unknown) (unknown) (unknown) (no date) (unknown) (unknown) Medical Histor y (Updated 06/16/22 @ 12:31 by Shaniqua Landry MA) (units unknown) (unknown) (unknown) (no date) (unknown) (unknown) Medications (units unknown) (unknown) (unknown) (no date) (unknown) (unknown) Mother Polycys tic kidney disease (units unknown) (unknown) (unknown) (no date) (unknown) (unknown) No Known Drug Allergies Allergy (Unverified 08/11/22 11:19) (units unknown) (unknown) (unknown) (no date) (unknown) (unknown) No no 156 absent (un its unknown) (unknown) (unknown) (no date) (unknown) (unknown) No no 158 absent (un its unknown) (unknown) (unknown) (no date) (unknown) (unknown) No significant cramping. Nausea is manageable - using bogdan mints and (units unknown) (unknown) (unknown) (no date) (unknown) (unknown) Notes (units unknown) (unknown) (unknown) (no date) (unknown) (unknown) Number of Maylin ng Children 0 (units unknown) (unknown) (unknown) (no date) (unknown) (unknown) Number of fetu ses:: Single (units unknown) (unknown) (unknown) (no date) (unknown) (unknown) Nutrition and weight gain counseling: special diet: discussed (units unknown) (unknown) (unknown) (no date) (unknown) (unknown) OB Office Visit (uni ts unknown) (unknown) (unknown) (no date) (unknown) (unknown) OB Visit Log (units unknown) (unknown) (unknown) (no date) (unknown) (unknown) On contr ol at conception?: No (units unknown) (unknown) (unknown) (no date) (unknown) (unknown) Orders (units unknown) (unknown) (unknown) (no date) (unknown) (unknown) Orders: (units unknown) (unknown) (unknown) (no date) (unknown) (unknown) Other Estimate s 12/31/22 LMP (Certain) 19w 5d (units unknown) (unknown) (unknown) (no date) (unknown) (unknown) Oxygen Deliver y Method room air (units unknown) (unknown) (unknown) (no date) (unknown) (unknown) PFSH (units unknown) (unknown) (unknown) (no date) (unknown) (unknown) Pap LSIL 01/23 22, but no reflex HPV was run, no f/u done. 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 treated and cured) (units unknown) (unknown) (unknown) (no date) (unknown) (unknown) Partner histor y of genital herpes: Yes (units unknown) (unknown) (unknown) (no date) (unknown) (unknown) Partner testin g still pending. (units unknown) (unknown) (unknown) (no date) (unknown) (unknown) Partner: Willian Lopez (units unknown) (unknown) (unknown) (no date) (unknown) (unknown) Patient's age 35 years or older as of estimated date of delivery: No (units unknown) (unknown) (unknown) (no date) (unknown) (unknown) Patient: JessicaColleen MR#: [id number] (units unknown) (unknown) (unknown) (no date) (unknown) (unknown) Client Reporting Associate: Masha (units unknown) (unknown) (unknown) (no date) (unknown) (unknown) Personal histo ry of STD: HPV (? no HPV actually run from pap) (units unknown) (unknown) (unknown) (no date) (unknown) (unknown) Personal histo ry of genital herpes: No (units unknown) (unknown) (unknown) (no date) (unknown) (unknown) Polycystic kid shannan disease (units unknown) (unknown) (unknown) (no date) (unknown) (unknown) Position Sitting (un its unknown) (unknown) (unknown) (no date) (unknown) (unknown) History (u nits unknown) (unknown) (unknown) (no date) (unknown) (unknown) type :: First (units unknown) (unknown) (unknown) (no date) (unknown) (unknown) Education ( units unknown) (unknown) (unknown) (no date) (unknown) (unknown) Initi al Assessment (units unknown) (unknown) (unknown) (no date) (unknown) (unknown) Speci fic Issues/Plans (units unknown) (unknown) (unknown) (no date) (unknown) (unknown) Testi ng: discussed (units unknown) (unknown) (unknown) (no date) (unknown) (unknown) Visit (unit s unknown) (unknown) (unknown) (no date) (unknown) (unknown) educa tion packet: Child education/plan, symptoms, (units unknown) (unknown) (unknown) (no date) (unknown) (unknown) Primary Care Provider: KELLEN (units unknown) (unknown) (unknown) (no date) (unknown) (unknown) Primary Ob Provider: Faith Flanagan (units unknown) (unknown) (unknown) (no date) (unknown) (unknown) Prior GBS-Infe cted child: No (units unknown) (unknown) (unknown) (no date) (unknown) (unknown) Providers (units unknown) (unknown) (unknown) (no date) (unknown) (unknown) Pt has had sensitivity and itchiness around her labia. 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 No exposures for over a month. (units unknown) (unknown) (unknown) (no date) (unknown) (unknown) Pt with polycy stic kidney disease. No issues with kidney function. FOB's (units unknown) (unknown) (unknown) (no date) (unknown) (unknown) Pulse 58 L (units unknown) (unknown) (unknown) (no date) (unknown) (unknown) Pulse Oximetry (%) 99 (units unknown) (unknown) (unknown) (no date) (unknown) (unknown) Pulse Source Monitor (units unknown) (unknown) (unknown) (no date) (unknown) (unknown) Rash or viral illness since last menstrual period: Yes (URI vs allergies (Covid (units unknown) (unknown) (unknown) (no date) (unknown) (unknown) Reason For Visit (un its unknown) (unknown) (unknown) (no date) (unknown) (unknown) Recent travel outside of country?: Yes ([place] only) (units unknown) (unknown) (unknown) (no date) (unknown) (unknown) Recurrent preg haven loss or a stillbirth: No (units unknown) (unknown) (unknown) (no date) (unknown) (unknown) Repeat BP 125/70 (un its unknown) (unknown) (unknown) (no date) (unknown) (unknown) 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 Letter provided for tennis shoes at (units unknown) (unknown) (unknown) (no date) (unknown) (unknown) Safety (units unknown) (unknown) (unknown) (no date) (unknown) (unknown) Seasonal allergies ( units unknown) (unknown) (unknown) (no date) (unknown) (unknown) Signed By: <Electronically signed by Faith Flanagan MD> (units unknown) (unknown) (unknown) (no date) (unknown) (unknown) Signed (units unknown) (unknown) (unknown) (no date) (unknown) (unknown) Sister Depression (u nits unknown) (unknown) (unknown) (no date) (unknown) (unknown) Smoking Status : Former smoker (quit vaping 11/2021) (units unknown) (unknown) (unknown) (no date) (unknown) (unknown) Smoking/Tobacc o use: discussed (units unknown) (unknown) (unknown) (no date) (unknown) (unknown) Social History (unit s unknown) (unknown) (unknown) (no date) (unknown) (unknown) Status: Acute (units unknown) (unknown) (unknown) (no date) (unknown) (unknown) Support Person (s):: Willian (units unknown) (unknown) (unknown) (no date) (unknown) (unknown) Surgical Histo ry (Updated 05/05/22 @ 15:35 by Rebecca Polk RN) (units unknown) (unknown) (unknown) (no date) (unknown) (unknown) Surrogate ?: no (units unknown) (unknown) (unknown) (no date) (unknown) (unknown) Symptoms since LMP: Reports amenorrhea, nausea, fatigue, breast tenderness, (units unknown) (unknown) (unknown) (no date) (unknown) (unknown) Teratogen Expo sures since LMP/Conception: Denies prescription medications, (units unknown) (unknown) (unknown) (no date) (unknown) (unknown) Testing Education (u nits unknown) (unknown) (unknown) (no date) (unknown) (unknown) Testing educat ion completed: group B strep, Spina bifida testing and Cell Free (units unknown) (unknown) (unknown) (no date) (unknown) (unknown) This note may have been all or partially generated using voice recognition (units unknown) (unknown) (unknown) (no date) (unknown) (unknown) Tobacco + Subs tance Use (units unknown) (unknown) (unknown) (no date) (unknown) (unknown) Tobacco Status (unit s unknown) (unknown) (unknown) (no date) (unknown) (unknown) Travel, Seatbe lt use and Influenza vaccine (already had flu shot, Covid x2) (units unknown) (unknown) (unknown) (no date) (unknown) (unknown) Type(s) of exercise: walking (units unknown) (unknown) (unknown) (no date) (unknown) (unknown) UProtein Movem ent PreLabor FHR Fndl Ht Pres Edema Cerv Exam US/Comment Next Appt (units unknown) (unknown) (unknown) (no date) (unknown) (unknown) Varicella/chic rodrigue pox status: immunized (units unknown) (unknown) (unknown) (no date) (unknown) (unknown) Visit Date: 06/16/22 Last Updated by: Faith Flanagan MD (units unknown) (unknown) (unknown) (no date) (unknown) (unknown) Visit Date: 07/14/22 Last Updated by: Faith Flanagan MD (units unknown) (unknown) (unknown) (no date) (unknown) (unknown) Visit Date: 08/11/22 Last Updated by: Faith Flanagan MD (units unknown) (unknown) (unknown) (no date) (unknown) (unknown) Visit Reasons: 20 wk ob (units unknown) (unknown) (unknown) (no date) (unknown) (unknown) Vitals (units unknown) (unknown) (unknown) (no date) (unknown) (unknown) Vitamins and i julio c, Diet and weight gain, Fish and mercury intake, Smoking, (units unknown) (unknown) (unknown) (no date) (unknown) (unknown) WG (units unknown) (unknown) (unknown) (no date) (unknown) (unknown) Weight 226 lb 8 oz ( units unknown) (unknown) (unknown) (no date) (unknown) (unknown) Wet Prep Tric BV Kisha Today N89.8 - Other specified noninflammatory disorders (units unknown) (unknown) (unknown) (no date) (unknown) (unknown) [facility] 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 (units unknown) (unknown) (unknown) (no date) (unknown) (unknown) [place] teeth extracted () (units unknown) (unknown) (unknown) (no date) (unknown) (unknown) Yes no 155 absent (u nits unknown) (unknown) (unknown) (no date) (unknown) (unknown) Zika virus exposure: No (units unknown) (unknown) (unknown) (no date) (unknown) (unknown) activity, X-ra y exposure, Medication use, Sauna/hot tub use, Dental care, (units unknown) (unknown) (unknown) (no date) (unknown) (unknown) alcohol intake : former (5-7 glasses of wine/week when not ) (units unknown) (unknown) (unknown) (no date) (unknown) (unknown) anyone in [facility] family with: (units unknown) (unknown) (unknown) (no date) (unknown) (unknown) at PP (units unknown) (unknown) (unknown) (no date) (unknown) (unknown) caffeine: Yes (<100mg/day) (units unknown) (unknown) (unknown) (no date) (unknown) (unknown) carbon monox detector in home: Yes (units unknown) (unknown) (unknown) (no date) (unknown) (unknown) caregiver/supp ort person: No (units unknown) (unknown) (unknown) (no date) (unknown) (unknown) cfDNA negative . It's a girl! (units unknown) (unknown) (unknown) (no date) (unknown) (unknown) connective tis norma d/o). 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 ) (units unknown) (unknown) (unknown) (no date) (unknown) (unknown) current occupational exposures/hazards: Yes (exposure in the building, but no (units unknown) (unknown) (unknown) (no date) (unknown) (unknown) daily servings fruits/ve-4 (units unknown) (unknown) (unknown) (no date) (unknown) (unknown) described, vis it schedule reviewed, ultrasounds policy reviewed, coverage 24 (units unknown) (unknown) (unknown) (no date) (unknown) (unknown) discussed, tuberculosis exposure discussed, CMV discussed, Toxoplasmosis (units unknown) (unknown) (unknown) (no date) (unknown) (unknown) do you feel sa fe at home: Yes (units unknown) (unknown) (unknown) (no date) (unknown) (unknown) duration: 30-4 5 minutes/day (units unknown) (unknown) (unknown) (no date) (unknown) (unknown) during the pas t year weight has: increased > 10 lbs (units unknown) (unknown) (unknown) (no date) (unknown) (unknown) education shola simms: college (some college) (units unknown) (unknown) (unknown) (no date) (unknown) (unknown) fire extinguis her in home: Yes (units unknown) (unknown) (unknown) (no date) (unknown) (unknown) firearms in ho me: Yes (some locked up, not all) (units unknown) (unknown) (unknown) (no date) (unknown) (unknown) for genetic counseling. Likely needs echo. (units unknown) (unknown) (unknown) (no date) (unknown) (unknown) frequency: 3-4 times per week (units unknown) (unknown) (unknown) (no date) (unknown) (unknown) have occurred. If there are any questions, please contact the Medical Records (units unknown) (unknown) (unknown) (no date) (unknown) (unknown) helmet use: Yes (uni ts unknown) (unknown) (unknown) (no date) (unknown) (unknown) her chest as w ell. Historically this has been from yeast infections. - Wet prep (units unknown) (unknown) (unknown) (no date) (unknown) (unknown) hours a day an d participation of father in care and office visits (units unknown) (unknown) (unknown) (no date) (unknown) (unknown) household memb ers: spouse and friend(s) (units unknown) (unknown) (unknown) (no date) (unknown) (unknown) housing: house (unit s unknown) (unknown) (unknown) (no date) (unknown) (unknown) inherited gene tic or chromosomal disorder (polycystic kidneys, Marfan's) (units unknown) (unknown) (unknown) (no date) (unknown) (unknown) irritability a nd other (constipation) (units unknown) (unknown) (unknown) (no date) (unknown) (unknown) lives independently: Yes (units unknown) (unknown) (unknown) (no date) (unknown) (unknown) marital status : (units unknown) (unknown) (unknown) (no date) (unknown) (unknown) may occur. 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 Please (units unknown) (unknown) (unknown) (no date) (unknown) (unknown) of vagina (units unknown) (unknown) (unknown) (no date) (unknown) (unknown) pets and anima ls: Yes (units unknown) (unknown) (unknown) (no date) (unknown) (unknown) precautions, Listeriosis prevention and Rubella Immunization (units unknown) (unknown) (unknown) (no date) (unknown) (unknown) prenat.vits,ca l,min -iron-folic 1 tab PO DAILY 05/05/22 [History Confirmed (units unknown) (unknown) (unknown) (no date) (unknown) (unknown) read the note carefully and recognize, using context, where these substitutions (units unknown) (unknown) (unknown) (no date) (unknown) (unknown) seatbelt use: always (units unknown) (unknown) (unknown) (no date) (unknown) (unknown) second hand exposure: Yes (roommate vapes) (units unknown) (unknown) (unknown) (no date) (unknown) (unknown) sent today (units unknown) (unknown) (unknown) (no date) (unknown) (unknown) 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 Referral to [facility] placed (units unknown) (unknown) (unknown) (no date) (unknown) (unknown) software. 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 Cous in cystic fibrosis. -- Referral to [facility] for genetic counseling. (units unknown) (unknown) (unknown) (no date) (unknown) (unknown) tea, taking B6. 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 (units unknown) (unknown) (unknown) (no date) (unknown) (unknown) that [facility] may recommend additional testing as well. (units unknown) (unknown) (unknown) (no date) (unknown) (unknown) they plan on ordering echo. 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 (units unknown) (unknown) (unknown) (no date) (unknown) (unknown) working smoke detector in home: Yes (units unknown) (unknown) Result panel 86 (unknown) (no date) (unknown) (unknown) (no value) (units unknown) (unknown) (unknown) (no date) (unknown) (unknown) None seen (units unknown) (unknown) (unknown) (no date) (unknown) (unknown) Occasional WBC seen (units unknown) (unknown) (unknown) (no date) (unknown) (unknown) Occasional (units unknown) (unknown) Social History date description facility 2022-06-16 00:00 Ex-smoker (finding) [facility] 2022-07-14 00:00 Ex-smoker (finding) [facility] 2022-08-11 00:00 Ex-smoker (finding) [facility] Vital Signs date measurement value units 2022-06-16 00:00 BMI 34.2 kg/m2 2022-06-16 00:00 BP_diastolic 66 mmHg 2022-06-16 00:00 BP_systolic 110 mmHg 2022-06-16 00:00 heart_rate 84 /min 2022-06-16 00:00 height_metric 170.18 cm 2022-06-16 00:00 height_standard 67 in 2022-06-16 00:00 weight_metric 99.1 kg 2022-06-16 00:00 weight_standard 218.48 lb 2022-07-14 00:00 BMI 34.3 kg/m2 2022-07-14 00:00 BP_diastolic 70 mmHg 2022-07-14 00:00 BP_systolic 125 mmHg 2022-07-14 00:00 heart_rate 83 /min 2022-07-14 00:00 height_metric 170.18 cm 2022-07-14 00:00 height_standard 67 in 2022-07-14 00:00 o2_saturation 99 % 2022-07-14 00:00 weight_metric 99.56 kg 2022-07-14 00:00 weight_standard 219.49 lb 2022-08-11 00:00 BMI 35.4 kg/m2 2022-08-11 00:00 BP_diastolic 66 mmHg 2022-08-11 00:00 BP_systolic 136 mmHg 2022-08-11 00:00 heart_rate 58 /min 2022-08-11 00:00 height_metric 170.18 cm 2022-08-11 00:00 height_standard 67 in 2022-08-11 00:00 o2_saturation 99 % 2022-08-11 00:00 weight_metric 102.73 kg 2022-08-11 00:00 weight_standard 226.48 lb
[2022-09-04 10:03] LABS: RAPID STREP SCREEN Negative (Negative)
--- NOTE | 2022-09-04 10:34 | ED Physician Documentation ---
PD HPI HEENT - Stated complaint Stated Complaint: CONGESTED,SORE THROAT, - Chief complaint Chief Complaint: Heent - History obtained from History obtained from: Patient - Additional information Additional information: The patient comes to the emergency department chief complaint of nasal congestion, sore throat, and mild cough for the last day and a half. She states that she has not had any fevers. Her has been sick with the same thing. The patient states that she is 23 weeks and just wants to see what else she can do to try to feel better. No other complaints at this time. The patient states she is otherwise healthy. She has not had any blood or fluid from her vagina and has still been feeling the baby move. She has been receiving care, and is only on vitamins. PD PAST MEDICAL HISTORY - Past Medical History Past Medical History: Yes Cardiovascular: None Respiratory: None Neuro: None Endocrine/Autoimmune: None GI: None DATA MANAGEMENT ASSOCIATE: None : Other HEENT: None Psych: None Musculoskeletal: None Derm: None Other Past Medical History: PKD - Past Surgical History Past Surgical History: No - Present Medications Home Medications: Ambulatory Orders Medication Instructions Recorded Confirmed Pnv No.95/Ferrous Fum/Folic AC 1 each PO DAILY 09/04/22 09/04/22 [ Tablet] - Allergies Allergies/Adverse Reactions: Allergies Allergy/AdvReac Type Severity Reaction Status Date / Time No Known Drug Allergies Allergy Verified 09/04/22 09:33 - Social History Does the pt smoke?: No Smoking Status: Never smoker Does the pt drink ETOH?: No Does the pt have substance abuse?: No - Immunizations Immunizations are current?: Yes PD ED PE NORMAL - Vitals Vital signs reviewed: Yes - General General: Alert and oriented X 3, No acute distress, Well developed/nourished - HEENT HEENT: Atraumatic, PERRL, EOMI, Moist mucous membranes, Pharynx benign, Other (Mild nasal congestion.) - Neck Neck: Supple, no meningeal sign - Cardiac Cardiac: RRR, No murmur - Respiratory Respiratory: No respiratory distress, Clear bilaterally - Abdomen Abdomen: Soft, Non tender, Other (Mildly gravid abdomen.) - Derm Derm: Normal color, Warm and dry, No rash - Extremities Extremities: No deformity, No edema - Neuro Neuro: Alert and oriented X 3, social research assistant 2-12 intact, Normal speech, Other (Grossly intact) - Psych Psych: Normal mood, Normal affect Results - Vitals Vitals: Vital Signs - 24 hr 09/04/22 09:31 Temperature 36.7 C Heart Rate 107 H Respiratory 16 Rate Blood Pressure 134/80 H O2 Saturation 98 Oxygen O2 Source Room air - Labs Labs: Laboratory Tests 09/04/22 09:40 Group A Strep Rapid Negative PD Medical Decision Making - ED course Complexity details: reviewed results, re-evaluated patient, considered differential, d/w patient, d/w family ED course: The patient's rapid strep test was negative. The respiratory PCR panel is pending at this time, and I have advised the patient that I will call her for any significant positives. We have discussed symptomatic management at home. The patient's has asked about the patient taking Sudafed, but the patient has already been counseled by her OB not to take it and I have reiterated that if the OB has stated that the patient should not take Sudafed, then she most definitely should not take it. We have discussed medications that are safe in for the sorts of symptoms versus not. Discussed the usual locations for follow-up and return Departure - Departure Disposition: 01 Home, Self Care Clinical Impression: Upper respiratory infection Qualifiers: URI type: unspecified viral URI Qualified Code(s): J06.9 - Acute upper respiratory infection, unspecified Condition: Stable Instructions: ED URI Viral Comments: Your strep test is negative. Most likely, you have the same upper respiratory infection that your has had, and in general, the sorts of things are viral. There is no indication for antibiotics at this time. As far as the question of Sudafed, it is not recommended during for a variety of reasons. Furthermore, if your OB has already advised you not to take it, then you definitely should not. You may use topical decongestants like Afrin, the generic form of which is oxymetazoline. Its not recommended that you use this for more than a few days, since the rebound congestion afterward starts to become more significant if you use it for longer. In general, if you are only using it for few days, the rebound congestion will only last for 2 or 3 hours and then subsides on its own. You may take Tylenol if needed for discomforts. You may follow-up with your OB as scheduled for your regular care. Please get plenty of fluids to drink. You should be starting to feel better in the next several days to a week.
[2022-09-04 10:41] LABS: B. PARAPERTUSSIS- RESP PCR PAN NOT DETECTED; B. PERTUSSIS- RESP PCR PANEL NOT DETECTED; C. PNEUMONIAE- RESP PCR PANEL NOT DETECTED; CORONAVIRUS 229E-RESP PCR DETECTED; CORONAVIRUS HKU1-RESP PCR NOT DETECTED; CORONAVIRUS NL63-RESP PCR NOT DETECTED; CORONAVIRUS OC43-RESP PCR NOT DETECTED; HUMAN METAPNEUMOVIRUS NOT DETECTED; INFLUENZA A- RESP PCR PANEL NOT DETECTED; INFLUENZA B - RESP PCR PANEL NOT DETECTED; M. PNEUMONIAE- RESP PCR PANEL NOT DETECTED; PARAINFLUENZA VIRUS 1 NOT DETECTED; PARAINFLUENZA VIRUS 2 NOT DETECTED; PARAINFLUENZA VIRUS 3 NOT DETECTED; PARAINFLUENZA VIRUS 4 NOT DETECTED; RHINOVIRUS/ENTEROVIRUS NOT DETECTED; RSV- RESP PCR PANEL NOT DETECTED; SARS-CoV-2 -RESP PCR PANEL NOT DETECTED
== END 2022-09-04 10:44 | disposition home or self-care (01) ==
LOC: ED 09:29
DX: O99.512 Diseases of the respiratory system complicating pregnancy, second trimester (principal); Z3A.23 23 weeks gestation of pregnancy; Z20.822 Contact with and (suspected) exposure to COVID-19
CPT/HCPCS: 87070; 87430; 87633; 99283